=== PATIENT | female | born 1950 | race Caucasian/White ===

== ENCOUNTER 2020-04-30 14:24 | Outpatient (RCR) | payer MEDICARE, SELFPAY | END 2020-07-03 09:48 | disposition home or self-care (01) | LOC: HO.WCC 14:24 | PROVIDERS: PCP Nurse Practitioner Family; Visit Provider Physician Assistant | DX: E11.621 Type 2 diabetes mellitus with foot ulcer (principal); L97.428 Non-pressure chronic ulcer of left heel and midfoot with other specified severity; L97.528 Non-pressure chronic ulcer of other part of left foot with other specified severity; I70.244 Atherosclerosis of native arteries of left leg with ulceration of heel and midfoot; I70.245 Atherosclerosis of native arteries of left leg with ulceration of other part of foot; E11.51 Type 2 diabetes mellitus with diabetic peripheral angiopathy without gangrene; E11.40 Type 2 diabetes mellitus with diabetic neuropathy, unspecified; I10 Essential (primary) hypertension; Z79.84 Long term (current) use of oral hypoglycemic drugs; Z79.2 Long term (current) use of antibiotics; Z87.891 Personal history of nicotine dependence | CPT/HCPCS: 99214; 99215 ==

== ENCOUNTER 2020-05-14 | Outpatient (REF) | payer MEDICARE, SELFPAY ==
--- NOTE | 2020-05-14 13:16 | XR_ITS ---
EXAMINATION: XR CALCANEUS, LEFT CLINICAL INFORMATION: Left heel ulcer COMPARISON: None TECHNIQUE: Lateral and axial views of the left calcaneus were obtained. FINDINGS: There is a moderate size calcaneal and retrocalcaneal enthesophytes. Ankle mortise and subtalar joints are normal. No visible fracture, dislocation or subluxation seen. There is no soft tissue ulceration or gas visualized on this exam XR/XR calcaneus LT min 2V IMPRESSION: Moderate-sized calcaneal heel and retrocalcaneal enthesophytes.
--- NOTE | 2020-05-14 13:18 | US_ITS ---
EXAMINATION: COLOR-FLOW DUPLEX IMAGING OF THE BILATERAL LOWER EXTREMITY ARTERIAL SYSTEM. VELOCITY MEASUREMENTS THROUGHOUT THE FEMORAL ARTERIES WITH ANKLE-BRACHIAL PERIPHERAL ARTERIAL TESTING. CLINICAL INFORMATION: This is a 69-year-old female with hypertension, diabetes, peripheral vascular disease. Interventional Radiologist: Cam Ryan M.D., F.S.I.R., F.A.C.R. RIGHT FEMORAL RUNOFF VELOCITIES: The right common femoral artery measures 131 cm/s and triphasic. The right profunda femoral artery is 123 cm/s and is triphasic. Right proximal superficial femoral artery measures 123 cm/s and triphasic. Mid superficial femoral artery is 91 cm/s and triphasic. Distal right superficial femoral artery measures 177 cm/s and is triphasic. Right popliteal velocity measures 214 cm/s and is monophasic. The posterior tibial artery velocity measures 24 cm/s and was monophasic. The right ankle-brachial index is 0.53. LEFT FEMORAL RUNOFF VELOCITIES: The left common femoral artery measures 202 cm/s and triphasic. The left profunda femoral artery is 160 cm/s and is triphasic. Left proximal superficial femoral artery measures 95 cm/s and monophasic. Mid superficial femoral artery is 602 cm/s and monophasic with severe disease. Distal left superficial femoral artery measures 44 cm/s and is monophasic. Left popliteal velocity measures 27 cm/s and is monophasic and with severe disease. The posterior tibial artery velocity measures 21 cm/s and with severe disease. The left ankle-brachial index is 0.50. US/US arterial duplex LE BI IMPRESSION: 1. Abnormal peripheral arterial testing with abnormal left ankle-brachial index and velocity measurements. 2. There is hemodynamically significant severe atherosclerotic disease in the right popliteal artery and the right posterior tibial artery. 3. There is severe hemodynamically significant disease in the mid left superficial femoral artery extending into the left popliteal artery and left posterior tibial artery.
== END 2020-05-14 00:01 | disposition home or self-care (01) ==
LOC: HO.US
PROVIDERS: PCP Nurse Practitioner Family; Visit Provider Physician Assistant
DX: I73.9 Peripheral vascular disease, unspecified (principal); E11.621 Type 2 diabetes mellitus with foot ulcer; L97.529 Non-pressure chronic ulcer of other part of left foot with unspecified severity
CPT/HCPCS: 73650; 93923; 93925

== ENCOUNTER → 2020-06-04 13:24 | Outpatient (BNVA) | payer MEDICARE, SELFPAY | PROVIDERS: PCP Nurse Practitioner Family; Visit Provider Surgery Vascular Surgery | DX: I73.9 Peripheral vascular disease, unspecified (principal) | CPT/HCPCS: 99202 ==

== ENCOUNTER 2020-06-10 09:48 | Inpatient (IN) | payer MEDICARE, SELFPAY ==
[2020-06-10] VITALS (12 sets, daily range): BP systolic 101–140; BP diastolic 54–79; PULSE 84–108; RESP 16–20; TEMP 36.1–37.2; O2SAT 96–99; BMI 30.5
--- NOTE | ~2020-06-10 | MR_ITS ---
EXAMINATION: LEFT FOOT MRI WITH AND WITHOUT CONTRAST CLINICAL INFORMATION: Left first toe pain. COMPARISON: None. TECHNIQUE: Sagittal axial and coronal sequences through the left toes with and without contrast. The patient received 7.5 mL of intravenous Gadavist contrast. FINDINGS: There is destruction of the distal tuft of the distal phalanx of the great toe. There is abnormal dark on T1 and bright on T2-weighted sequences signal in the distal phalanx of the great toe. Evaluation for enhancement is difficult due to heterogeneous fat saturation however there is probable enhancement. Appearance is suggestive of osteomyelitis. There is overlying soft tissue swelling and skin loss or ulcer. There is abnormal soft tissue signal that is low signal on T1 and high signal on T2-weighted sequences suggestive of a cellulitis. No focal fluid collection/soft tissue abscess is seen. No other evidence of osteomyelitis is seen. Bone alignment is normal. No fracture, dislocation is seen. There are degenerative changes at the 1st MTP joint with joint space narrowing and osteophyte formation. There is a small joint effusion at the 1st MTP joint. MR/MR foot LT wo/w con IMPRESSION: Cellulitis and osteomyelitis of the distal phalanx of the left great toe. There is bone destruction of the distal tuft of the distal phalanx.
[2020-06-10 06:15] LABS: Glucose, Whole Blood 251 mg/dL (60-115)
[2020-06-10 06:49] LABS: Hematocrit 39.6 % (37-47); Hemoglobin 12.7 g/dl (12.0-16.0); Mean Corpuscular HGB Conc 32.1 g/dl (31.0-35.0); Mean Corpuscular Hemoglobin 26.6 pg (27.0-33.0); Mean Corpuscular Volume 82.8 fL (80-98); Mean Platelet Volume 10.1 fL (9.4-12.3); Platelet Count 563 X10*3/uL (160-400); Red Blood Count 4.78 X10*6/uL (4.20-5.50)
[2020-06-10 06:59] LABS: INTERNATIONAL NORM RATIO 1.1 (0.9-1.1); Prothrombin Time 12.9 SEC (10.8-13.0)
[2020-06-10 07:25] LABS: Anion Gap 15 (12-20); Carbon Dioxide 26 mmol/L (22-29); Chloride 100 mmol/L (96-108); Potassium 4.3 mmol/L (3.3-5.1); Sodium 137 mmol/L (135-145)
--- NOTE | 2020-06-10 09:52 | W.PM.OPN ---
Operative Note Operative Note Date of Service: 06/10/20 Narrative: Angiogram report from [facility] Preoperative diagnosis: Peripheral arterial disease of left lower extremity Postoperative diagnosis: Same Procedure: 1. Ultrasound-guided right common femoral access 2. Aortogram with left lower extremity runoff 3. Plasty of left anterior tibial 4. plasty of left peroneal 5. plasty left SFA 6. atherectomy of left SFA Surgeon:Aidan Jeff M.D. Industrial [employer] Brake Coupler:None Anesthesia: Local with moderate conscious sedation for a total of 81 minutes, performed by id Specimens:none Drains:none Estimated blood loss:minimal Indications: 69-year-old female with nonhealing left leg ulcer. On noninvasive testing was noted to have SFA disease with an SUSANNA of 0.5. She now presents for endovascular intervention. Risks benefits complications were discussed in detail with the patient. She understood and consented. Procedure in detail: Patient was brought to the angiography suite prior to which a time-out was called for patient identification and site verification. Bilateral groins were prepped and draped in the standard surgical fashion. Under ultrasound guidance Right common femoral was punctured with micro puncture needle and wire. Subsequently a precision 4 [place] sheath was then placed. Talentwise wire was advanced to the level of the aorta. 4 [place]er Flush catheter was brought up and parked at the level of the renal arteries. Aortogram was then undertaken. Catheter was brought down to the level of the iliac bifurcation. Iliacs were subsequently imaged. Catheter was then brought in up and over to the left side SFA. Runoff study was then undertaken. at this 5000 units of systemic heparin was administered. Once this was accomplished we placed in up and over 6 [place] sheath. We brought down a Glidewire Advantage into the tibial vessels. This was exchanged out for now the cross. And direct image of the tibial vessels was then undertaken. Once this was accomplished we exchanged out for an 014 wire. We 1st cannulated the anterior tibial vessel. We either were able to traverse the lesion. We then placed a taper balloon 2.5-2.0 tapered with a 210 length. The anterior tibial was then plasty. We then turned our attention to the peroneal artery which had a total occlusion in the proximal portion. Were able to 014 wire across this area. We then plasty this area with a 3 x 40 balloon. We then turned our attention to the proximal SFA. In the proximal 3rd there was a near occlusive lesion. We were to perform an atherectomy in this area. We used a Hawk 1 device. Approximately 4 passes of this area was undertaken. Once this was done there was still some residual stenosis and a drug coated 6 x 40 balloon was brought in to place. This was brought into position in under 3 minutes and plasty for 3 minutes. We then turned our attention to a stenotic lesion near [place]. This was plasty with a 6 x 40 balloon. We then brought a drug coated balloon into position in under 3 minutes and then plasty for 3 minutes. Once this was accomplished completion angiogram demonstrated excellent result. Catheter wire sheath was brought to the ipsilateral side. StarClose closure device was then deployed. Interpretation of films: 1. Ultrasound demonstrates appropriate femoral puncture. Image of which was saved. 2. Aortogram demonstrates appropriate caliber aorta. Minimal disease. Appropriate take-off of the renals. 3. Iliac images demonstrate Normal flow all the way down. 4. Left lower extremity study she demonstrated good flow through the common femoral and profunda femorals. There was stenotic disease at the proximal and distal SFA. Good flow through the popliteal. Below knee there was a tenuous anterior tibial and after the proximal all portion of the peroneal it reconstituted and the peroneal was the more dominant runoff vessel. 5. Post treatment images demonstrated excellent flow through the SFA down to anterior tibial and peroneal. Pro Duane was the dominant runoff. Anterior tibial occluded in the mid calf. Conclusion: 1. Successful angiogram 2. successful plasty left anterior tibial peroneal and SFA. 3. Successful atherectomy of left SFA. 4. Due to the use of drug coated balloon patient will require Plavix for 6 months. This note is constructed using voice recognition software. While every effort has been made to ensure accuracy, neon light installer errors may have been included. Thank you for allowing me to participate in the care of your patient. Yours sincerely, Aidan Jeff MD, FACS, R.P.V.I.
[2020-06-10] MEDS: Lidocaine HCl 1 % 20 ML VIAL 10 ML SUBCUT (10:05)
[2020-06-10] MEDS: iohexoL 300 MG/ML 100 ML INFUS..BTL 200 ML IV (10:06)
--- NOTE | 2020-06-10 10:11 | HO.VASCH&P ---
History of Present Illness History of Present Illness Date of Service: 06/10/20 Chief complaint: peripheral vascular disease Narrative: Roseanna Gallego is a 69 year old Diabetic female With a history of smoking has a nonhealing left leg ulcer. [facility] She was subsequently brought in for elective left leg angiogram. Upon workup this morning she was noted to have a white count of 25. there was concern of an acute infection of the left lower extremity. She was subsequently admitted after procedure. Review of Systems Review of Systems: Yes all other systems are reviewed and are negative Constitutional: Constitutional: Reports no additional constitutional complaints ENT: Reports Normal hearing present Cardiovascular: Cardiovascular: Denies chest pain, Denies chest pain at rest, Denies chest pain with activity and Denies pedal edema Respiratory: Respiratory: Denies cough Gastrointestinal: Gastrointestinal: Denies abdominal pain Musculoskeletal: Musculoskeletal: Reports abnormal gait, Reports muscle cramps and Reports radiating pain into limb ( Left foot) Integumentary/Breasts: Skin/Breast: Denies skin ulcer and Denies wounds Neurologic: Reports Normal hearing present and Reports abnormal gait Psychiatric: Psychiatric: Reports no additional psychiatric complaints PMFSH Past Medical History Medical History Hx of cataract Social History Social History Smoking Status: Former smoker Tobacco Type: Cigarette Advance Directives: No Advance Directives Information Provided: Yes Meds Allergies Allergy/AdvReac Type Severity Reaction Status Date / Time Milk Containing Products Allergy Mild DIARRHEA Verified 06/04/20 13:25 [Milk Products] Active Medications: Current Medications Generic Name Dose Route Start Last Admin Trade Name Freq PRN Reason Stop Dose Admin Acetaminophen 650 mg 06/10/20 09:47 Acetaminophen 325 Mg Tablet PO Q6H PRN Pain, Mild (Pain Scale 1-3) Heparin Sodium (Porcine) 5,000 unit 06/10/20 10:00 Heparin Sodium,Porcine 5,000 Unit/Ml Vial SUBCUT Q8H MARKY Sodium Chloride 1,000 mls @ 100 mls/hr 06/10/20 07:45 Ns IVCONT .Q10H MARKY Sodium Chloride 1,000 mls @ 100 mls/hr 06/10/20 09:45 Ns IVCONT 06/10/20 13:45 .Q10H MARKY Iohexol 200 ml 06/10/20 10:05 06/10/20 10:06 Iohexol 300 Mg/Ml 100 Ml Infus..Btl IV 06/10/20 10:06 200 ml ONCE ONE Administration Lidocaine HCl 10 ml 06/10/20 10:04 06/10/20 10:05 Lidocaine Hcl 1 % 20 Ml Vial SUBCUT 06/10/20 10:05 10 ml ONCE ONE Administration Morphine Sulfate 2 mg 06/10/20 09:47 Morphine Sulfate 2 Mg/Ml Cartridge IVPUSH Q4H PRN Pain, Severe (Pain Scale 7-10) Oxycodone HCl 5 mg 06/10/20 09:47 Oxycodone Hcl Immed Release 5 Mg Tablet PO Q4H PRN Pain, Moderate (Pain Scale 4-6 Sodium Chloride 3 ml 06/10/20 16:00 0.9 % Sodium Chloride Flush 3 Ml Syringe IVFLUSH QSHIFT [facility] Physical Exam Vital Signs: Vital Signs: Last Vital Signs Temp 97.0 F 06/10/20 09:45 Pulse 108 H 06/10/20 10:00 Resp 18 06/10/20 10:00 BP 119/77 06/10/20 10:00 Pulse Ox 97 06/10/20 10:00 Body Mass Index 30.5 Const: General: cooperative, healthy appearing and comfortable Orientation/consciousness: oriented to person, oriented to place and oriented to time HENMT: Head: Yes normal to inspection Neck: Neck: Yes normal visual inspection Carotids: no bruits Chest: Chest palpation & inspection: normal inspection of the chest Resp: Effort & Inspection: normal respiratory effort and able to speak in complete sentences Auscultation: clear to auscultation bilaterally, no crackles, no rales, no rhonchi and no wheezes Cardio: Rate: regular rate Rhythm: regular rhythm Heart sounds: S1 normal heart sound present and S2 normal heart sound present Bruits: no carotid bruits Peripheral pulses: dorsalis pedis present ( bilateral DP signals) GI: Inspection: Yes normal to inspection Skin: Wounds: wounds noted ( left calcaneus in great toe) Hair: normal Neuro: General: oriented to person, oriented to place and oriented to time Cranial nerves: Yes CN's II-XII intact bilaterally and Yes Normal hearing present Cognition (Neuro): normal cognition Motor exam (neuro): 5/5 motor strength present throughout Extrem: Other: venous exam: No significant superficial varicosities or spider telangiectasias, minimal edema General: No clubbing, No cyanosis and No edema Psych: Appearance: grossly normal Mental Status: mental status grossly normal Speech and movement: Normal speech and movement present Results Results Labs: Short CBC 06/10/20 Range/Units 06:37 WBC 25.0 H (4.8-10.8) X10*3/uL Hgb 12.7 (12.0-16.0) g/dl Hct 39.6 (37-47) % Plt Count 563 H (160-400) X10*3/uL BMP 06/10/20 06:37 Sodium 137 Potassium 4.3 Chloride 100 Carbon Dioxide 26 Assessment and Plan (1) Diabetic foot ulcer: Problem details: in short patient has a left leg diabetic foot ulcer. It appears to be acutely infected. Will plan for admission and subsequent antibiotics. will involve hospitalist Service for assistance in her care. Status: Acute (2) PAD (peripheral artery disease): Problem details: Patient has undergone endovascular intervention. It was successful. Will need admission and treatment of acute infection. Thank you for allowing us to assist in her care. Status: Acute Procedures Date of Service Date of Service: 06/10/20
[2020-06-10] MEDS: Heparin Sodium,Porcine 5,000 UNIT/ML VIAL 5000 UNIT SUBCUT ×2 (11:42→18:13)
[2020-06-10] MEDS: Clopidogrel Bisulfate 300 MG TABLET PO (11:42)
[2020-06-10 11:46] LABS: Creatinine Clr Calc Pharmacy 41.9; Estimated Glomerular Filt Rate 45
[2020-06-10] MEDS: Aspirin 325 MG TABLET PO (11:52)
[2020-06-10] MEDS: Piperacillin Sodium/Tazobactam 3.375 GM in 0.9 % Sodium Chloride 50 ML IV ×2 (11:53→18:13)
[2020-06-10 12:37] LABS: Glucose, Whole Blood 138 mg/dL (60-115)
--- NOTE | 2020-06-10 13:12 | P.CONIM_ITS ---
History of Present Illness Data of Consult Service Date: 06/10/20 Requesting physician: Aidan Jeff Primary Care Provider: Sally Gonzalez NP HPI Reason for consult: left first toe infection 69-year-old female with left 1st toe pain and ulcer. [facility], but has only been once so far, ulcer started about 3-4 weeks ago, no fever, chills or inciting injury. Patient was referred to vascular surgery who performed elective angiogram with plasty to left anterior tibial, left peroneal, left SFA and atherectomy of left SFA. patient's labs were significant for leukocystosis of 25, therefore, she was admitted for IV antibiotics. Review of Systems Review of Systems: Constitutional: Denies fever, denies Chills Eyes: denies blurry vision ENT: denies sore throat CVS: denies chest pain Respiratory: Denies dyspnea GI: no abdominal pain : denies dysuria MSK: denies neck pain Skin: denies rash Neuro: denies specific motor weakness Psych: denies suicidal ideation Endocrine: denies heat/cold intoleratnce Hematologic: denies easy bleeding Allergy: denies hives [facility] Medical History Diabetes mellitus, type 2 HTN (hypertension) Hx of cataract Pertinent family history: no known cancers Family history: reviewed and not pertinent Surgical History H/O: hysterectomy History of carpal tunnel release Social History Smoking Status: Former smoker Tobacco Type: Cigarette Advance Directives: No Advance Directives Information Provided: Yes Meds Allergies Allergy/AdvReac Type Severity Reaction Status Date / Time Milk Containing Products Allergy Mild DIARRHEA Verified 06/04/20 13:25 [Milk Products] Active Medications: Current Medications Generic Name Dose Route Start Last Admin Trade Name Freq PRN Reason Stop Dose Admin Acetaminophen 650 mg 06/10/20 09:47 Acetaminophen 325 Mg Tablet PO Q6H PRN Pain, Mild (Pain Scale 1-3) Aspirin 81 mg 06/11/20 09:00 Aspirin 81 Mg Tab.Chew PO DAILY MARKY Atorvastatin Calcium 40 mg 06/10/20 21:00 Atorvastatin Calcium 40 Mg Tablet PO BEDTIME MARKY Clopidogrel Bisulfate 75 mg 06/11/20 09:00 Clopidogrel Bisulfate 75 Mg Tablet PO DAILY [facility] Gabapentin 100 mg 06/10/20 21:00 Gabapentin 100 Mg Capsule PO BID [facility] Heparin Sodium (Porcine) 5,000 unit 06/10/20 10:00 06/10/20 11:42 Heparin Sodium,Porcine 5,000 Unit/Ml Vial SUBCUT 5,000 unit Q8H [facility] Administration Sodium Chloride 1,000 mls @ 100 mls/hr 06/10/20 07:45 06/10/20 13:11 Ns IVCONT Not Given .Q10H [facility] Sodium Chloride 1,000 mls @ 100 mls/hr 06/10/20 09:45 06/10/20 13:10 Ns IVCONT 06/10/20 13:45 Not Given .Q10H [facility] Vancomycin HCl 750 mg/ 275 mls @ 183.333 mls/hr 06/10/20 13:00 Vancomycin HCl 500 mg/ Sodium IV Chloride Q24H [facility] Piperacillin Sod/Tazobactam 50 mls @ 100 mls/hr 06/10/20 18:00 Sod 3.375 gm/ Sodium Chloride IV Q6H [facility] Insulin Human Lispro 0 unit 06/10/20 11:30 06/10/20 13:10 Insulin Lispro 100 Unit/Ml 3 Ml Vial SUBCUT Not Given QIDACHS [facility] Protocol Lisinopril 40 mg 06/11/20 09:00 Lisinopril 40 Mg Tablet PO DAILY [facility] Protocol Morphine Sulfate 2 mg 06/10/20 09:47 Morphine Sulfate 2 Mg/Ml Cartridge IVPUSH Q4H PRN Pain, Severe (Pain Scale 7-10) Omeprazole 20 mg 06/11/20 06:30 Omeprazole 20 Mg Capsule. PO DAILY@0630 [facility] Oxycodone HCl 5 mg 06/10/20 09:47 Oxycodone Hcl Immed Release 5 Mg Tablet PO Q4H PRN Pain, Moderate (Pain Scale 4-6 Pharmacy Consult 1 each 06/10/20 10:36 Consult Rx Perform Med Rec MISCELLANE ONCE PRN Consult order Pharmacy Consult 1 each 06/10/20 10:40 Consult Rx Vancomycin Dosing MISCELLANE DAILY PRN Consult order Pioglitazone HCl 15 mg 06/11/20 09:00 Pioglitazone Hcl 15 Mg Tablet PO DAILY [facility] Sodium Chloride 3 ml 06/10/20 16:00 0.9 % Sodium Chloride Flush 3 Ml Syringe IVFLUSH QSHIFT [facility] Home Medications Medication Instructions Recorded Confirmed Last Taken Type atorvastatin 40 mg PO BEDTIME 06/10/20 06/10/20 Unknown History empagliflozin [Jardiance] 10 mg PO DAILY 06/10/20 06/10/20 Unknown History gabapentin 100 mg PO BID 06/10/20 06/10/20 Unknown History glipizide 10 mg PO DAILY 06/10/20 06/10/20 Unknown History lisinopril 40 mg PO DAILY 06/10/20 06/10/20 Unknown History pantoprazole 40 mg PO DAILY@0630 06/10/20 06/10/20 Unknown History pioglitazone 15 mg PO DAILY 06/10/20 06/10/20 Unknown History Physical Exam Vital Signs and Narrative: Vital Signs: Last Vital Signs Temp 97.5 F 06/10/20 12:30 Pulse 104 H 06/10/20 12:30 Resp 18 06/10/20 12:30 BP 126/65 06/10/20 12:30 Pulse Ox 99 06/10/20 12:30 Body Mass Index 30.5 General: no acute distress HEENT: atraumatic Neck: normal to visual inspection CVS: S1, S2, RRR Resp: CTA bilateral Chest: non tender GI: soft, non tender, non distended : no CVA tenderness Skin: see picture Extremities: no edema Neuro: Oriented X3, grossly intact Psych: cooperative, Results Labs CBC and Chem 7: 06/10/20 06:37 06/10/20 06:37 Labs: Laboratory Results - last 24 hr 06/10/20 06/10/20 06/10/20 06:11 06:37 06:37 MCV 82.8 MCH 26.6 L MCHC 32.1 RDW 13.0 Plt Count 563 H MPV 10.1 Absolute Nucleated RBC 0.000 Nucleated RBC % (auto) 0.0 PT 12.9 INR 1.1 Anion Gap Estim Creat Clear Calc Estimated GFR POC Glucose 251 H 06/10/20 06/10/20 06:37 12:31 MCV MCH MCHC RDW Plt Count MPV Absolute Nucleated RBC Nucleated RBC % (auto) PT INR Anion Gap 15 Estim Creat Clear Calc 41.9 Estimated GFR 45 POC Glucose 138 H Assessment and Plan (1) HTN (hypertension): Status: Acute (2) Diabetes mellitus, type 2: Status: Acute (3) PAD (peripheral artery disease): Problem details: Patient has undergone endovascular intervention. It was successful. Will need admission and treatment of acute infection. Thank you for allowing us to assist in her care. Status: Acute (4) Diabetic foot ulcer: Problem details: in short patient has a left leg diabetic foot ulcer. It appears to be acutely infected. Will plan for admission and subsequent antibiotics. will involve hospitalist Service for assistance in her care. Status: Acute 69F status post angiogram and angioplasty of left lower extremity with diabetic foot ulcer of left 1st toe. Admitted for leukocytosis and concern for deep infection. Left 1st toe likely osteomyelitis Check MRI Vanco and Zosyn Check blood cultures Id eval Peripheral vascular disease Status post angioplasty Management per vascular surgery Hypertension Lisinopril Diabetes Insulin
[2020-06-10] MEDS: 0.9 % Sodium Chloride Flush 3 ML SYRINGE IVFLUSH (16:26)
[2020-06-10 16:28] LABS: Glucose, Whole Blood 150 mg/dL (60-115)
[2020-06-10] MEDS: traMADoL HCL 50 MG TABLET PO (18:13)
[2020-06-10 20:21] LABS: Glucose, Whole Blood 156 mg/dL (60-115)
--- NOTE | 2020-06-10 21:04 | W.PM.IDCN ---
History of Present Illness Data of Consult Service Date: 06/10/20 Requesting physician: Timothy Gates Primary Care Provider: Sally Gonzalez NP HPI Reason for consult: left foot ulcer She presents with four weeks left foot ulcer great toe with darkness Also there was in heel ulcer ,now improving. Review of Systems Review of Systems: Yes all other systems are reviewed and are negative PMFSH Past Medical History Medical History Diabetes mellitus, type 2 HTN (hypertension) Hx of cataract Family History Family history: reviewed and not pertinent Surgical History Surgical History H/O: hysterectomy History of carpal tunnel release Social History Social History Household Members: None Housing: House Do you presently have visiting nurse or other home services: No Smoking Status: Former smoker Tobacco Type: Cigarette Smoked in Last 30 Days: No Smoking Quit Date: 2005 Use of substances other than those prescribed or required for medical reasons: No Have you been hit, kicked, punched, or otherwise hurt by someone within the past year? If so, by whom?: No Do you feel safe in your current relationship?: No Current Relationship Is there a partner from a previous relationship who is making you feel unsafe now?: No Are you made to feel afraid or neglected: No Advance Directives: No Advance Directives Information Provided: Yes Do you have thoughts of harming others: None Do you have a plan to hurt others: No Plan Recently lost weight without trying: No Meds Allergies Allergy/AdvReac Type Severity Reaction Status Date / Time Milk Containing Products Allergy Mild DIARRHEA Verified 06/04/20 13:25 [Milk Products] Active Medications: Current Medications Generic Name Dose Route Start Last Admin Trade Name Freq PRN Reason Stop Dose Admin Acetaminophen 650 mg 06/10/20 09:47 Acetaminophen 325 Mg Tablet PO Q6H PRN Pain, Mild (Pain Scale 1-3) Aspirin 81 mg 06/11/20 09:00 Aspirin 81 Mg Tab.Chew PO DAILY [facility] Atorvastatin Calcium 40 mg 06/10/20 21:00 Atorvastatin Calcium 40 Mg Tablet PO BEDTIME [facility] Clopidogrel Bisulfate 75 mg 06/11/20 09:00 Clopidogrel Bisulfate 75 Mg Tablet PO DAILY [facility] Gabapentin 100 mg 06/10/20 21:00 Gabapentin 100 Mg Capsule PO BID [facility] Heparin Sodium (Porcine) 5,000 unit 06/10/20 10:00 06/10/20 18:13 Heparin Sodium,Porcine 5,000 Unit/Ml Vial SUBCUT 5,000 unit Q8H [facility] Administration Sodium Chloride 1,000 mls @ 100 mls/hr 06/10/20 07:45 06/10/20 13:11 Ns IVCONT Not Given .Q10H [facility] Vancomycin HCl 750 mg/ 275 mls @ 183.333 mls/hr 06/10/20 13:00 06/10/20 16:24 Vancomycin HCl 500 mg/ Sodium IV Infused Chloride Q24H [facility] Infusion Piperacillin Sod/Tazobactam 50 mls @ 100 mls/hr 06/10/20 18:00 06/10/20 19:00 Sod 3.375 gm/ Sodium Chloride IV Infused Q6H [facility] Infusion Insulin Human Lispro 0 unit 06/10/20 11:30 06/10/20 16:32 Insulin Lispro 100 Unit/Ml 3 Ml Vial SUBCUT Not Given QIDACHS [facility] Protocol Lisinopril 40 mg 06/11/20 09:00 Lisinopril 40 Mg Tablet PO DAILY [facility] Protocol Morphine Sulfate 2 mg 06/10/20 09:47 Morphine Sulfate 2 Mg/Ml Cartridge IVPUSH Q4H PRN Pain, Severe (Pain Scale 7-10) Omeprazole 20 mg 06/11/20 06:30 Omeprazole 20 Mg Capsule.Dr PO DAILY@0630 [facility] Oxycodone HCl 5 mg 06/10/20 09:47 Oxycodone Hcl Immed Release 5 Mg Tablet PO Q4H PRN Pain, Moderate (Pain Scale 4-6 Pharmacy Consult 1 each 06/10/20 10:36 Consult Rx Perform Med Rec MISCELLANE ONCE PRN Consult order Pharmacy Consult 1 each 06/10/20 10:40 Consult Rx Vancomycin Dosing MISCELLANE DAILY PRN Consult order Pioglitazone HCl 15 mg 06/11/20 09:00 Pioglitazone Hcl 15 Mg Tablet PO DAILY [facility] Sodium Chloride 3 ml 06/10/20 16:00 06/10/20 16:26 0.9 % Sodium Chloride Flush 3 Ml Syringe IVFLUSH 3 ml QSHIFT [facility] Administration Tramadol HCl 50 mg 06/10/20 17:53 06/10/20 18:13 Tramadol Hcl 50 Mg Tablet PO 50 mg Q4H PRN Administration Pain, Severe (Pain Scale 7-10) Home Medications Medication Instructions Recorded Confirmed Last Taken Type atorvastatin 40 mg PO BEDTIME 06/10/20 06/10/20 Unknown History empagliflozin [Jardiance] 10 mg PO DAILY 06/10/20 06/10/20 Unknown History gabapentin 100 mg PO BID 06/10/20 06/10/20 Unknown History glipizide 10 mg PO DAILY 06/10/20 06/10/20 Unknown History lisinopril 40 mg PO DAILY 06/10/20 06/10/20 Unknown History pantoprazole 40 mg PO DAILY@0630 06/10/20 06/10/20 Unknown History pioglitazone 15 mg PO DAILY 06/10/20 06/10/20 Unknown History Physical Exam Vital Signs: Vital Signs: Last Vital Signs Temp 99 F 06/10/20 19:26 Pulse 94 06/10/20 19:26 Resp 17 06/10/20 19:26 BP 140/74 H 06/10/20 19:26 Pulse Ox 98 06/10/20 19:26 Body Mass Index 30.5 Const: General: cooperative HENMT: Head: Yes normal to inspection Mouth: Normal oral and palatal mucosa present Eyes: General: appearance normal, both eyes and all related structures Resp: Effort & Inspection: normal respiratory effort Cardio: Rate: regular rate Rhythm: regular rhythm GI: Palpation (GI): Soft to palpation and nontender Extrem: Other: ulcer left foot and heel Results Labs CBC & Chem 7: 06/10/20 06:37 06/10/20 06:37 Labs: Short CBC 06/10/20 Range/Units 06:37 WBC 25.0 H (4.8-10.8) X10*3/uL Hgb 12.7 (12.0-16.0) g/dl Hct 39.6 (37-47) % Plt Count 563 H (160-400) X10*3/uL BMP 06/10/20 06:37 Sodium 137 Potassium 4.3 Chloride 100 Carbon Dioxide 26 Creatinine 1.19 Assessment and Plan (1) Diabetic foot ulcer: Problem details: in short patient has a left leg diabetic foot ulcer. There is concern over osteomyelitis gram negative ,gram positive Status: Acute Would continue Vancomycin and Zosyn If infection found on MRI likely 6 weeks IV Soriano had angiogram per Dr Jeff
[2020-06-10] MEDS: Insulin Lispro 100 UNIT/ML 3 ML VIAL SUBCUT (21:30)
[2020-06-10] MEDS: Atorvastatin Calcium 40 MG TABLET PO (21:30)
[2020-06-10] MEDS: Gabapentin 100 MG CAPSULE PO (21:30)
[2020-06-10] MEDS: 0.9 % Sodium Chloride 1,000 ML 100 ML IVCONT (22:53)
[2020-06-11] VITALS (7 sets, daily range): BP systolic 104–128; BP diastolic 50–77; PULSE 78–101; RESP 14–18; TEMP 36–37.1; O2SAT 97–98; BMI 30.5
[2020-06-11] MEDS: 0.9 % Sodium Chloride Flush 3 ML SYRINGE IVFLUSH ×3 (00:23→15:33)
[2020-06-11] MEDS: Piperacillin Sodium/Tazobactam 3.375 GM in 0.9 % Sodium Chloride 50 ML IV ×5 (00:32→23:34)
[2020-06-11 05:01] LABS: Basophils Absolute Auto 0.1 X10*3/uL (0.0-0.2); Basophils Percent Auto 0.3 % (0-2); Eosinophils Absolute Auto 0.2 X10*3/uL (0.0-0.4); Hematocrit 34.3 % (37-47); Hemoglobin 10.8 g/dl (12.0-16.0); Imm Gran Abs Auto 0.08 X10*3/uL (0.00-0.03); Imm Gran Pct Auto 0.5 % (0.0-0.4); Lymphocytes Percent Auto 63.2 % (20-40); MANUAL DIFF FLAG SCAN; Mean Corpuscular HGB Conc 31.5 g/dl (31.0-35.0); Mean Corpuscular Hemoglobin 26.2 pg (27.0-33.0); Mean Corpuscular Volume 83.1 fL (80-98); Mean Platelet Volume 10.3 fL (9.4-12.3); Monocytes Absolute Auto 0.6 X10*3/uL (0.1-1.2); Monocytes Percent Auto 3.6 % (2-11); Neutrophils Absolute Auto 5.1 X10*3/uL (2.0-8.3); Neutrophils Percent Auto 31.4 % (45-73); Platelet Count 389 X10*3/uL (160-400); Red Blood Count 4.13 X10*6/uL (4.20-5.50); Red Cell Distribution Width 13.1 % (11.0-16.0); SCAN SMEAR FLAG 1; White Blood Count 16.2 X10*3/uL (4.8-10.8)
[2020-06-11 05:23] LABS: Anion Gap 13 (12-20); Blood Urea Nitrogen 23 mg/dL (9-16); Calcium 9.3 mg/dL (8.4-10.2); Carbon Dioxide 26 mmol/L (22-29); Chloride 104 mmol/L (96-108); Creatinine Clr Calc Pharmacy 61.5; Estimated Glomerular Filt Rate > 60; Glucose Fasting 140 mg/dL (60-99); Potassium 4.8 mmol/L (3.3-5.1); Sodium 138 mmol/L (135-145)
[2020-06-11 05:26] LABS: Lymphocytes Absolute Auto 10.2 X10*3/uL (1.2-4.9); SLIDE REVIEW VERIFIED
[2020-06-11 06:25] LABS: Basophils Absolute Auto 0.1 X10*3/uL (0.0-0.2); Basophils Percent Auto 0.4 % (0-2); Eosinophils Absolute Auto 0.2 X10*3/uL (0.0-0.4); Eosinophils Percent Auto 0.9 % (0-4); Hematocrit 34.6 % (37-47); Hemoglobin 11.1 g/dl (12.0-16.0); Imm Gran Abs Auto 0.07 X10*3/uL (0.00-0.03); Imm Gran Pct Auto 0.4 % (0.0-0.4); Lymphocytes Absolute Auto 9.9 X10*3/uL (1.2-4.9); Lymphocytes Percent Auto 62.2 % (20-40); MANUAL DIFF FLAG SCAN; Mean Corpuscular HGB Conc 32.1 g/dl (31.0-35.0); Mean Corpuscular Hemoglobin 26.4 pg (27.0-33.0); Mean Corpuscular Volume 82.2 fL (80-98); Mean Platelet Volume 10.1 fL (9.4-12.3); Monocytes Absolute Auto 0.6 X10*3/uL (0.1-1.2); Monocytes Percent Auto 3.9 % (2-11); Neutrophils Absolute Auto 5.1 X10*3/uL (2.0-8.3); Neutrophils Percent Auto 32.2 % (45-73); Platelet Count 397 X10*3/uL (160-400); Red Blood Count 4.21 X10*6/uL (4.20-5.50); Red Cell Distribution Width 13.2 % (11.0-16.0); SCAN SMEAR FLAG 1
[2020-06-11 06:41] LABS: Anion Gap 12 (12-20); Blood Urea Nitrogen 21 mg/dL (9-16); Calcium 9.1 mg/dL (8.4-10.2); Carbon Dioxide 27 mmol/L (22-29); Chloride 105 mmol/L (96-108); Creatinine Clr Calc Pharmacy 63.9; Estimated Glomerular Filt Rate > 60; Glucose Random 162 mg/dL (60-115); Potassium 4.5 mmol/L (3.3-5.1); Sodium 139 mmol/L (135-145)
[2020-06-11] MEDS: Omeprazole 20 MG CAPSULE.DR PO (06:41)
[2020-06-11 07:10] LABS: Glucose, Whole Blood 149 mg/dL (60-115)
[2020-06-11] MEDS: Aspirin 81 MG TAB.CHEW PO (09:00)
[2020-06-11] MEDS: Heparin Sodium,Porcine 5,000 UNIT/ML VIAL 5000 UNIT SUBCUT ×2 (09:00→18:25)
[2020-06-11] MEDS: Gabapentin 100 MG CAPSULE PO ×2 (09:00→22:30)
[2020-06-11] MEDS: Clopidogrel Bisulfate 75 MG TABLET PO (09:00)
[2020-06-11] MEDS: 0.9 % Sodium Chloride 1,000 ML 100 ML IVCONT (09:17)
--- NOTE | 2020-06-11 09:54 | P.PNVS_ITS ---
Subjective Subjective Date of Service: 06/11/20 Patient reports: no new complaints and feels better Interval history: Patient seen and examined. No events. Status post angiogram yesterday. She states that her leg feels better. She has received IV antibiotics overnight. In good spirits today. Physical Exam Vital Signs: Vital Signs: Last Vital Signs Temp 98.7 F 06/11/20 07:30 Pulse 78 06/11/20 09:00 Resp 18 06/11/20 07:30 BP 109/58 L 06/11/20 09:00 Pulse Ox 98 06/11/20 07:30 Body Mass Index 30.5 Const: General: cooperative, healthy appearing and no acute distress Orientation/consciousness: oriented to person, oriented to place and oriented to time HENMT: Head: Yes normal to inspection Neck: Carotids: no bruits Chest: Chest palpation & inspection: normal inspection of the chest Resp: Effort & Inspection: normal respiratory effort and able to speak in complete sentences Auscultation: clear to auscultation bilaterally Cardio: Rate: regular rate Heart sounds: S1 normal heart sound present and S2 normal heart sound present Peripheral pulses: dorsalis pedis present (Left side DP signal) GI: Inspection: Yes normal to inspection Skin: General skin exam: no rashes or lesions noted Wounds: wounds noted (Left great toe gangrene) Neuro: General: oriented to person, oriented to place, oriented to time and CN's II-XI intact bilaterally Extrem: General: Yes normal to inspection, Yes full ROM and Yes no clubbing, cyanosis or edema Psych: Appearance: grossly normal and well kempt Speech and movement: Normal speech and movement present Affect: normal affect Progress Note: A&P Assessment and plan (1) Diabetic foot ulcer: Problem details: in short patient has a left leg diabetic foot ulcer. There is concern over osteomyelitis gram negative ,gram positive Status: Acute (2) PAD (peripheral artery disease): Problem details: Patient has undergone endovascular intervention. It was successful. Will need admission and treatment of acute infection. Thank you for allowing us to assist in her care. Status: Acute Assessment and Plan: Await results of MRI. I did discuss with the patient that she will most likely require great toe amputation. She was initially shocked but then was agreeable after discussion. Will allow antibiotics to control infection and await MRI results. Pending that will schedule her soon thereafter. Thank you for allowing us to assist in her care. Fall Risk Details Current Medications: Current Medications Generic Name Dose Route Start Last Admin Trade Name Freranjan PRN Reason Stop Dose Admin Acetaminophen 650 mg 06/10/20 09:47 Acetaminophen 325 Mg Tablet PO Q6H PRN Pain, Mild (Pain Scale 1-3) Aspirin 81 mg 06/11/20 09:00 06/11/20 09:00 Aspirin 81 Mg Tab.Chew PO 81 mg DAILY [facility] Administration Atorvastatin Calcium 40 mg 06/10/20 21:00 06/10/20 21:30 Atorvastatin Calcium 40 Mg Tablet PO 40 mg BEDTIME [facility] Administration Clopidogrel Bisulfate 75 mg 06/11/20 09:00 06/11/20 09:00 Clopidogrel Bisulfate 75 Mg Tablet PO 75 mg DAILY [facility] Administration Gabapentin 100 mg 06/10/20 21:00 06/11/20 09:00 Gabapentin 100 Mg Capsule PO 100 mg BID [facility] Administration Heparin Sodium (Porcine) 5,000 unit 06/10/20 10:00 06/11/20 09:00 Heparin Sodium,Porcine 5,000 Unit/Ml Vial SUBCUT 5,000 unit Q8H [facility] Administration Vancomycin HCl 750 mg/ 275 mls @ 183.333 mls/hr 06/10/20 13:00 06/10/20 16:24 Vancomycin HCl 500 mg/ Sodium IV Infused Chloride Q24H [facility] Infusion Piperacillin Sod/Tazobactam 50 mls @ 100 mls/hr 06/10/20 18:00 06/11/20 07:28 Sod 3.375 gm/ Sodium Chloride IV Infused Q6H [facility] Infusion Insulin Human Lispro 0 unit 06/10/20 11:30 06/11/20 07:28 Insulin Lispro 100 Unit/Ml 3 Ml Vial SUBCUT Not Given QIDACHS [facility] Protocol Lisinopril 40 mg 06/11/20 09:00 06/11/20 09:00 Lisinopril 40 Mg Tablet PO 40 mg DAILY [facility] Administration Protocol Morphine Sulfate 2 mg 06/10/20 09:47 Morphine Sulfate 2 Mg/Ml Cartridge IVPUSH Q4H PRN Pain, Severe (Pain Scale 7-10) Omeprazole 20 mg 06/11/20 06:30 06/11/20 06:41 Omeprazole 20 Mg Capsule. PO 20 mg DAILY@0630 [facility] Administration Oxycodone HCl 5 mg 06/10/20 09:47 Oxycodone Hcl Immed Release 5 Mg Tablet PO Q4H PRN Pain, Moderate (Pain Scale 4-6 Pharmacy Consult 1 each 06/10/20 10:36 Consult Rx Perform Med Rec MISCELLANE ONCE PRN Consult order Pharmacy Consult 1 each 06/10/20 10:40 Consult Rx Vancomycin Dosing MISCELLANE DAILY PRN Consult order Pioglitazone HCl 15 mg 06/11/20 09:00 06/11/20 09:00 Pioglitazone Hcl 15 Mg Tablet PO 15 mg DAILY [facility] Administration Sodium Chloride 3 ml 06/10/20 16:00 06/11/20 09:00 0.9 % Sodium Chloride Flush 3 Ml Syringe IVFLUSH 3 ml QSHIFT [facility] Administration Tramadol HCl 50 mg 06/10/20 17:53 06/10/20 18:13 Tramadol Hcl 50 Mg Tablet PO 50 mg Q4H PRN Administration Pain, Severe (Pain Scale 7-10) Time Spent With Patient Time: Total time spent is greater than 50% in coordination of care (as documented) at patient's floor/unit and/or counseling patient: Time with patient: 15 - 24 minutes Procedures Date of Service Date of Service: 06/11/20
--- NOTE | 2020-06-11 10:36 | P.PNIM_ITS ---
Subjective Subjective Date of Service: 06/11/20 Interval History: no complaints Cardiovascular Cardiovascular: Reports no additional cardiovascular complaints Gastrointestinal Gastrointestinal: Reports no additional gastrointestinal complaints Physical Exam Vital Signs: Vital Signs: Last Vital Signs Temp 98.7 F 06/11/20 07:30 Pulse 78 06/11/20 09:00 Resp 18 06/11/20 07:30 BP 109/58 L 06/11/20 09:00 Pulse Ox 98 06/11/20 07:30 Body Mass Index 30.5 General: AO X 3, no acute distress Resp: CTA bilateral CVS: S1,S2,RRR GI: soft, non tender, non distended Neuro: motor grossly intact Psych: appropriate affect ext: left 1st toe OM Objective Data Current Medications Generic Name Dose Route Start Last Admin Trade Name Freq PRN Reason Stop Dose Admin Acetaminophen 650 mg 06/10/20 09:47 Acetaminophen 325 Mg Tablet PO Q6H PRN Pain, Mild (Pain Scale 1-3) Aspirin 81 mg 06/11/20 09:00 06/11/20 09:00 Aspirin 81 Mg Tab.Chew PO 81 mg DAILY [facility] Administration Atorvastatin Calcium 40 mg 06/10/20 21:00 06/10/20 21:30 Atorvastatin Calcium 40 Mg Tablet PO 40 mg BEDTIME [facility] Administration Clopidogrel Bisulfate 75 mg 06/11/20 09:00 06/11/20 09:00 Clopidogrel Bisulfate 75 Mg Tablet PO 75 mg DAILY [facility] Administration Gabapentin 100 mg 06/10/20 21:00 06/11/20 09:00 Gabapentin 100 Mg Capsule PO 100 mg BID [facility] Administration Heparin Sodium (Porcine) 5,000 unit 06/10/20 10:00 06/11/20 09:00 Heparin Sodium,Porcine 5,000 Unit/Ml Vial SUBCUT 5,000 unit Q8H [facility] Administration Vancomycin HCl 750 mg/ 275 mls @ 183.333 mls/hr 06/10/20 13:00 06/10/20 16:24 Vancomycin HCl 500 mg/ Sodium IV Infused Chloride Q24H [facility] Infusion Piperacillin Sod/Tazobactam 50 mls @ 100 mls/hr 06/10/20 18:00 06/11/20 07:28 Sod 3.375 gm/ Sodium Chloride IV Infused Q6H [facility] Infusion Insulin Human Lispro 0 unit 06/10/20 11:30 06/11/20 07:28 Insulin Lispro 100 Unit/Ml 3 Ml Vial SUBCUT Not Given QIDACHS [facility] Protocol Lisinopril 40 mg 06/11/20 09:00 06/11/20 09:00 Lisinopril 40 Mg Tablet PO 40 mg DAILY [facility] Administration Protocol Morphine Sulfate 2 mg 06/10/20 09:47 Morphine Sulfate 2 Mg/Ml Cartridge IVPUSH Q4H PRN Pain, Severe (Pain Scale 7-10) Omeprazole 20 mg 06/11/20 06:30 06/11/20 06:41 Omeprazole 20 Mg Capsule. PO 20 mg DAILY@0630 [facility] Administration Oxycodone HCl 5 mg 06/10/20 09:47 Oxycodone Hcl Immed Release 5 Mg Tablet PO Q4H PRN Pain, Moderate (Pain Scale 4-6 Pharmacy Consult 1 each 06/10/20 10:36 Consult Rx Perform Med Rec MISCELLANE ONCE PRN Consult order Pharmacy Consult 1 each 06/10/20 10:40 Consult Rx Vancomycin Dosing MISCELLANE DAILY PRN Consult order Pioglitazone HCl 15 mg 06/11/20 09:00 06/11/20 09:00 Pioglitazone Hcl 15 Mg Tablet PO 15 mg DAILY [facility] Administration Sodium Chloride 3 ml 06/10/20 16:00 06/11/20 09:00 0.9 % Sodium Chloride Flush 3 Ml Syringe IVFLUSH 3 ml QSHIFT [facility] Administration Tramadol HCl 50 mg 06/10/20 17:53 06/10/20 18:13 Tramadol Hcl 50 Mg Tablet PO 50 mg Q4H PRN Administration Pain, Severe (Pain Scale 7-10) Labs CBC & Chem 7: 06/11/20 06:10 06/11/20 06:10 Assessment and Plan (1) HTN (hypertension): Status: Acute (2) Diabetes mellitus, type 2: Status: Acute (3) PAD (peripheral artery disease): Problem details: Patient has undergone endovascular intervention. It was successful. Will need admission and treatment of acute infection. Thank you for allowing us to assist in her care. Status: Acute (4) Diabetic foot ulcer: Problem details: in short patient has a left leg diabetic foot ulcer. There is concern over osteomyelitis gram negative ,gram positive Status: Acute Assessment and Plan: 69F status post angiogram and angioplasty of left lower extremity with diabetic foot ulcer of left 1st toe. Admitted for leukocytosis and concern for deep infection. Left 1st toe likely osteomyelitis follow up MRI Vanco and Zosyn follow up blood cultures possible amputation later this week Peripheral vascular disease Status post angioplasty Management per vascular surgery Hypertension Lisinopril Diabetes Insulin
[2020-06-11 11:03] LABS: Glucose, Whole Blood 182 mg/dL (60-115)
[2020-06-11] MEDS: Insulin Lispro 100 UNIT/ML 3 ML VIAL SUBCUT ×3 (12:28→22:32)
--- NOTE | 2020-06-11 13:28 | MHC.CM.PN ---
talked with pt and her granddaughter with whom,SHE lives pt had no services prior to admission pt may need a vna when she is dcd pt has transportain home
--- NOTE | 2020-06-11 15:36 | PM.IDPN ---
Subjective Subjective Date of Service: 06/11/20 Interval History: Dr Jeff did some bedside debridement She is scheduled for amputation in two days of great toe Objective Data Labs CBC & Chem 7: 06/11/20 06:10 06/11/20 06:10 Labs: Laboratory Results - last 24 hr 06/10/20 06/10/20 06/11/20 16:12 20:12 04:19 WBC 16.2 H RBC 4.13 L Hgb 10.8 L Hct 34.3 L MCV 83.1 MCH 26.2 L MCHC 31.5 RDW 13.1 Plt Count 389 D MPV 10.3 Immature Gran % (Auto) 0.5 H Neut % (Auto) 31.4 L Lymph % (Auto) 63.2 H [place] % (Auto) 3.6 Eos % (Auto) 1.0 Baso % (Auto) 0.3 Lymph # (Auto) 10.2 H [place] # (Auto) 0.6 Eos # (Auto) 0.2 Baso # (Auto) 0.1 Abs Immat Gran (auto) 0.08 H Absolute Neuts (auto) 5.1 Absolute Nucleated RBC 0.000 Nucleated RBC % (auto) 0.0 Smear Tech's Comments VERIFIED Sodium Potassium Chloride Carbon Dioxide Anion Gap BUN Creatinine Estim Creat Clear Calc Estimated GFR POC Glucose 150 H 156 H Random Glucose Fasting Glucose Calcium 06/11/20 06/11/20 06/11/20 04:19 06:10 06:10 WBC 16.0 H RBC 4.21 Hgb 11.1 L Hct 34.6 L MCV 82.2 MCH 26.4 L MCHC 32.1 RDW 13.2 Plt Count 397 MPV 10.1 Immature Gran % (Auto) 0.4 Neut % (Auto) 32.2 L Lymph % (Auto) 62.2 H [place] % (Auto) 3.9 Eos % (Auto) 0.9 Baso % (Auto) 0.4 Lymph # (Auto) 9.9 H [place] # (Auto) 0.6 Eos # (Auto) 0.2 Baso # (Auto) 0.1 Abs Immat Gran (auto) 0.07 H Absolute Neuts (auto) 5.1 Absolute Nucleated RBC 0.000 Nucleated RBC % (auto) 0.0 Smear Tech's Comments Sodium 138 139 Potassium 4.8 4.5 Chloride 104 105 Carbon Dioxide 26 27 Anion Gap 13 12 BUN 23 H 21 H Creatinine 0.81 0.78 Estim Creat Clear Calc 61.5 63.9 Estimated GFR > 60 > 60 POC Glucose Random Glucose 162 H Fasting Glucose 140 H Calcium 9.3 9.1 06/11/20 06/11/20 07:04 10:58 WBC RBC Hgb Hct MCV MCH MCHC RDW Plt Count MPV Immature Gran % (Auto) Neut % (Auto) Lymph % (Auto) [place] % (Auto) Eos % (Auto) Baso % (Auto) Lymph # (Auto) [place] # (Auto) Eos # (Auto) Baso # (Auto) Abs Immat Gran (auto) Absolute Neuts (auto) Absolute Nucleated RBC Nucleated RBC % (auto) Smear Tech's Comments Sodium Potassium Chloride Carbon Dioxide Anion Gap BUN Creatinine Estim Creat Clear Calc Estimated GFR POC Glucose 149 H 182 H Random Glucose Fasting Glucose Calcium Microbiology Microbiology Results: Microbiology 06/10/20 13:25 Blood - Venous Blood Culture - Preliminary No growth after 24 hours. 06/10/20 13:25 Blood - Venous Blood Culture - Preliminary No growth after 24 hours. Physical Exam Vital Signs: Vital Signs: Last Vital Signs Temp 98.3 F 06/11/20 11:16 Pulse 101 H 06/11/20 11:16 Resp 18 06/11/20 11:16 BP 105/77 06/11/20 11:16 Pulse Ox 98 06/11/20 11:16 Body Mass Index 30.5 Const: General: cooperative HENMT: Head: Yes normal to inspection Mouth: Normal oral and palatal mucosa present Resp: Effort & Inspection: normal respiratory effort Cardio: Rate: regular rate Rhythm: regular rhythm GI: Palpation (GI): Soft to palpation and nontender Extrem: Other: necrotic great toe ,healing heel Assessment and Plan Assessment and plan (1) Osteomyelitis: Problem details: Osteomyelitis, left great toe Scheduled for amputation Status: Acute Assessment and Plan: Continue IV antibiotics until and then po Augmentin on discharge No residential antibiotics are necessary if area of infection removed Time Spent With Patient Time: Total time spent is greater than 50% in coordination of care (as documented) at patient's floor/unit and/or counseling patient: Time with patient: 15 - 24 minutes
[2020-06-11 16:09] LABS: Glucose, Whole Blood 193 mg/dL (60-115)
[2020-06-11] MEDS: traMADoL HCL 50 MG TABLET PO (18:18)
[2020-06-11 21:09] LABS: Glucose, Whole Blood 153 mg/dL (60-115)
[2020-06-11] MEDS: Atorvastatin Calcium 40 MG TABLET PO (22:30)
[2020-06-12] VITALS (7 sets, daily range): BP systolic 106–163; BP diastolic 53–77; PULSE 86–101; RESP 16–19; TEMP 36.1–37.1; O2SAT 98–100
[2020-06-12] MEDS: 0.9 % Sodium Chloride Flush 3 ML SYRINGE IVFLUSH ×3 (01:23→21:22)
[2020-06-12 05:04] LABS: Hematocrit 33.6 % (37-47); Hemoglobin 10.7 g/dl (12.0-16.0); Mean Corpuscular HGB Conc 31.8 g/dl (31.0-35.0); Mean Corpuscular Hemoglobin 26.2 pg (27.0-33.0); Mean Corpuscular Volume 82.2 fL (80-98); Mean Platelet Volume 10.4 fL (9.4-12.3); Platelet Count 372 X10*3/uL (160-400); Red Blood Count 4.09 X10*6/uL (4.20-5.50); Red Cell Distribution Width 13.1 % (11.0-16.0); White Blood Count 13.5 X10*3/uL (4.8-10.8)
[2020-06-12 05:28] LABS: Anion Gap 12 (12-20); Blood Urea Nitrogen 15 mg/dL (9-16); Calcium 9.3 mg/dL (8.4-10.2); Carbon Dioxide 27 mmol/L (22-29); Chloride 106 mmol/L (96-108); Creatinine Clr Calc Pharmacy 66.5; Estimated Glomerular Filt Rate > 60; Glucose Fasting 129 mg/dL (60-99); Potassium 5.2 mmol/L (3.3-5.1); Sodium 140 mmol/L (135-145)
[2020-06-12] MEDS: Omeprazole 20 MG CAPSULE.DR PO (05:47)
[2020-06-12] MEDS: Piperacillin Sodium/Tazobactam 3.375 GM in 0.9 % Sodium Chloride 50 ML IV ×3 (05:47→17:41)
[2020-06-12 07:06] LABS: Glucose, Whole Blood 150 mg/dL (60-115)
--- NOTE | 2020-06-12 07:46 | HO.VASCPN ---
Subjective Subjective Date of Service: 06/12/20 Patient reports: no new complaints and feels better Interval history: 69-year-old female with nonhealing left great toe ulcer for follow-up. Of note patient had MRI yesterday. Appears to be doing relatively well today. Pain well controlled. Physical Exam Vital Signs: Vital Signs: Last Vital Signs Temp 97.8 F 06/12/20 03:13 Pulse 88 06/12/20 03:13 Resp 18 06/12/20 03:13 BP 116/53 L 06/12/20 03:13 Pulse Ox 99 06/12/20 03:13 Body Mass Index 30.5 Const: General: cooperative, healthy appearing and no acute distress Orientation/consciousness: oriented to person, oriented to place and oriented to time HENMT: Head: Yes normal to inspection Neck: Carotids: no bruits Chest: Chest palpation & inspection: normal inspection of the chest Resp: Effort & Inspection: normal respiratory effort and able to speak in complete sentences Auscultation: clear to auscultation bilaterally Cardio: Rate: regular rate Heart sounds: S1 normal heart sound present and S2 normal heart sound present GI: Inspection: Yes normal to inspection Skin: General skin exam: no rashes or lesions noted Wounds: wounds noted (Left great toe gangrene) Neuro: General: oriented to person, oriented to place, oriented to time and CN's II-XI intact bilaterally Extrem: General: Yes normal to inspection, Yes full ROM and Yes no clubbing, cyanosis or edema Psych: Appearance: grossly normal and well kempt Speech and movement: Normal speech and movement present Affect: normal affect Progress Note: A&P Assessment and plan (1) PAD (peripheral artery disease): Status: Acute Assessment and Plan: Patient is status post endovascular intervention. It appears to be doing relatively well. Results of MRI were reviewed with the patient. She has underlying osteomyelitis with multiple fractures. She will be best served with an amputation. This was discussed with the patient in she was in agreement. The patient will be scheduled for left great toe amputation. Risks benefits complications of the procedure were discussed in detail with the patient. She understood and consented. The patient had an opportunity to ask questions regarding the treatment plan. All questions were answered. Imaging studies, laboratory studies and physical exam results were discussed and reviewed in detail. No major barriers to understanding were identified. The patient expressed understanding and agreement with the above treatment plan. The patient is aware they should contact our office by phone for worsening of the current condition or the appearance of new symptoms. Thank you for allowing me to participate in the vascular care of this patient. If you have any questions or concerns regarding the treatment for the above condition please do not hesitate to contact me. The office telephone contact is [phone]. This note is constructed using voice recognition software. While every effort has been made to ensure accuracy, catalogue maker errors may have been included. Thank you for allowing me to participate in the care of your patient. Yours sincerely, Aidan Jeff MD, FACS, R.P.V.I. Fall Risk Details Current Medications: Current Medications Generic Name Dose Route Start Last Admin Trade Name Freq PRN Reason Stop Dose Admin Acetaminophen 650 mg 06/10/20 09:47 Acetaminophen 325 Mg Tablet PO Q6H PRN Pain, Mild (Pain Scale 1-3) Aspirin 81 mg 06/11/20 09:00 06/11/20 09:00 Aspirin 81 Mg Tab.Chew PO 81 mg DAILY [facility]Y Administration Atorvastatin Calcium 40 mg 06/10/20 21:00 06/11/20 22:30 Atorvastatin Calcium 40 Mg Tablet PO 40 mg BEDTIME [facility]Y Administration Clopidogrel Bisulfate 75 mg 06/11/20 09:00 06/11/20 09:00 Clopidogrel Bisulfate 75 Mg Tablet PO 75 mg DAILY [facility] Administration Gabapentin 100 mg 06/10/20 21:00 06/11/20 22:30 Gabapentin 100 Mg Capsule PO 100 mg BID MARKY Administration Heparin Sodium (Porcine) 5,000 unit 06/10/20 10:00 06/12/20 01:48 Heparin Sodium,Porcine 5,000 Unit/Ml Vial SUBCUT Not Given Q8H MARKY Vancomycin HCl 750 mg/ 275 mls @ 183.333 mls/hr 06/10/20 13:00 06/11/20 17:15 Vancomycin HCl 500 mg/ Sodium IV Infused Chloride Q24H MARKY Infusion Piperacillin Sod/Tazobactam 50 mls @ 100 mls/hr 06/10/20 18:00 06/12/20 06:19 Sod 3.375 gm/ Sodium Chloride IV Infused Q6H MARKY Infusion Insulin Human Lispro 0 unit 06/10/20 11:30 06/12/20 07:24 Insulin Lispro 100 Unit/Ml 3 Ml Vial SUBCUT Not Given QIDACHS [facility] Protocol Lisinopril 40 mg 06/11/20 09:00 06/11/20 09:00 Lisinopril 40 Mg Tablet PO 40 mg DAILY MARKY Administration Protocol Morphine Sulfate 2 mg 06/10/20 09:47 Morphine Sulfate 2 Mg/Ml Cartridge IVPUSH Q4H PRN Pain, Severe (Pain Scale 7-10) Omeprazole 20 mg 06/11/20 06:30 06/12/20 05:47 Omeprazole 20 Mg Capsule.Dr PO 20 mg DAILY@0630 [facility] Administration Oxycodone HCl 5 mg 06/10/20 09:47 Oxycodone Hcl Immed Release 5 Mg Tablet PO Q4H PRN Pain, Moderate (Pain Scale 4-6 Pharmacy Consult 1 each 06/10/20 10:36 Consult Rx Perform Med Rec MISCELLANE ONCE PRN Consult order Pharmacy Consult 1 each 06/10/20 10:40 Consult Rx Vancomycin Dosing MISCELLANE DAILY PRN Consult order Pioglitazone HCl 15 mg 06/11/20 09:00 06/11/20 09:00 Pioglitazone Hcl 15 Mg Tablet PO 15 mg DAILY [facility] Administration Sodium Chloride 3 ml 06/10/20 16:00 06/12/20 01:23 0.9 % Sodium Chloride Flush 3 Ml Syringe IVFLUSH 3 ml QSHIFT [facility] Administration Tramadol HCl 50 mg 06/10/20 17:53 06/11/20 18:18 Tramadol Hcl 50 Mg Tablet PO 50 mg Q4H PRN Administration Pain, Severe (Pain Scale 7-10) Time Spent With Patient Time: Total time spent is greater than 50% in coordination of care (as documented) at patient's floor/unit and/or counseling patient: Time with patient: 15 - 24 minutes Procedures Date of Service Date of Service: 06/12/20
[2020-06-12 07:51] LABS: Lymphocytes Absolute Manual 9.9 X10*3/uL (0.6-4.8); Lymphocytes Percent Manual 73 % (20-40); Monocytes Absolute Manual 0.4 X10*3/uL (0.0-1.2); Monocytes Percent Manual 3 % (2-11); Neutrophils Percent Manual 24 % (45-73)
[2020-06-12 07:52] LABS: Burr Cells 2+
[2020-06-12 07:53] LABS: Hypochromasia 1+; Platelet Estimate NORMAL (NORMAL); Platelet Morphology Comment NORMAL; RBC Morphology NOTED; Smudge Cells PRESENT
--- NOTE | 2020-06-12 08:34 | MHC.CM.PN ---
DP Female 69 scheduled for L great toe amp r/t osteo/multi fx. A referral was made to [facility]. Request they follow for DC needs. Anticipate DC 1-2 days. CM will follow. Pt will arrange for transportation to home.
[2020-06-12] MEDS: Aspirin 81 MG TAB.CHEW PO (08:40)
[2020-06-12] MEDS: Clopidogrel Bisulfate 75 MG TABLET PO (08:40)
[2020-06-12] MEDS: Gabapentin 100 MG CAPSULE PO ×2 (08:40→21:17)
[2020-06-12] MEDS: Heparin Sodium,Porcine 5,000 UNIT/ML VIAL 5000 UNIT SUBCUT ×2 (08:41→17:41)
[2020-06-12 09:47] LABS: Band Neutrophils Percent 0 % (3-5); Neutrophils Absolute Manual 3.2 X10*3/uL (2.2-7.9)
[2020-06-12 11:06] LABS: Glucose, Whole Blood 213 mg/dL (60-115)
--- NOTE | 2020-06-12 11:14 | HO.PM.IMPN ---
Subjective Subjective Date of Service: 06/12/20 Interval History: no complaints Cardiovascular Cardiovascular: Reports no additional cardiovascular complaints Gastrointestinal Gastrointestinal: Reports no additional gastrointestinal complaints Physical Exam Vital Signs: Vital Signs: Last Vital Signs Temp 97 F 06/12/20 08:00 Pulse 100 06/12/20 08:41 Resp 16 06/12/20 08:00 BP 106/61 06/12/20 08:41 Pulse Ox 100 06/12/20 08:00 Body Mass Index 30.5 General: AO X 3, no acute distress Resp: CTA bilateral CVS: S1,S2,RRR GI: soft, non tender, non distended Neuro: motor grossly intact Psych: appropriate affect left 1st toe om Objective Data Current Medications Generic Name Dose Route Start Last Admin Trade Name Freq PRN Reason Stop Dose Admin Acetaminophen 650 mg 06/10/20 09:47 Acetaminophen 325 Mg Tablet PO Q6H PRN Pain, Mild (Pain Scale 1-3) Aspirin 81 mg 06/11/20 09:00 06/12/20 08:40 Aspirin 81 Mg Tab.Chew PO 81 mg DAILY [facility]Y Administration Atorvastatin Calcium 40 mg 06/10/20 21:00 06/11/20 22:30 Atorvastatin Calcium 40 Mg Tablet PO 40 mg BEDTIME [facility]Y Administration Clopidogrel Bisulfate 75 mg 06/11/20 09:00 06/12/20 08:40 Clopidogrel Bisulfate 75 Mg Tablet PO 75 mg DAILY [facility] Administration Gabapentin 100 mg 06/10/20 21:00 06/12/20 08:40 Gabapentin 100 Mg Capsule PO 100 mg BID MARKY Administration Heparin Sodium (Porcine) 5,000 unit 06/10/20 10:00 06/12/20 08:41 Heparin Sodium,Porcine 5,000 Unit/Ml Vial SUBCUT 5,000 unit Q8H [facility]Y Administration Vancomycin HCl 750 mg/ 275 mls @ 183.333 mls/hr 06/10/20 13:00 06/11/20 17:15 Vancomycin HCl 500 mg/ Sodium IV Infused Chloride Q24H [facility]Y Infusion Piperacillin Sod/Tazobactam 50 mls @ 100 mls/hr 06/10/20 18:00 06/12/20 06:19 Sod 3.375 gm/ Sodium Chloride IV Infused Q6H [facility] Infusion Insulin Human Lispro 0 unit 06/10/20 11:30 06/12/20 07:24 Insulin Lispro 100 Unit/Ml 3 Ml Vial SUBCUT Not Given QIDACHS [facility] Protocol Lisinopril 40 mg 06/11/20 09:00 06/12/20 08:41 Lisinopril 40 Mg Tablet PO 40 mg DAILY MARKY Administration Protocol Morphine Sulfate 2 mg 06/10/20 09:47 Morphine Sulfate 2 Mg/Ml Cartridge IVPUSH Q4H PRN Pain, Severe (Pain Scale 7-10) Omeprazole 20 mg 06/11/20 06:30 06/12/20 05:47 Omeprazole 20 Mg Capsule.Dr PO 20 mg DAILY@0630 [facility] Administration Oxycodone HCl 5 mg 06/10/20 09:47 Oxycodone Hcl Immed Release 5 Mg Tablet PO Q4H PRN Pain, Moderate (Pain Scale 4-6 Pharmacy Consult 1 each 06/10/20 10:36 Consult Rx Perform Med Rec MISCELLANE ONCE PRN Consult order Pharmacy Consult 1 each 06/10/20 10:40 Consult Rx Vancomycin Dosing MISCELLANE DAILY PRN Consult order Pioglitazone HCl 15 mg 06/11/20 09:00 06/12/20 08:40 Pioglitazone Hcl 15 Mg Tablet PO 15 mg DAILY [facility] Administration Sodium Chloride 3 ml 06/10/20 16:00 06/12/20 08:41 0.9 % Sodium Chloride Flush 3 Ml Syringe IVFLUSH 3 ml QSHIFT [facility] Administration Tramadol HCl 50 mg 06/10/20 17:53 06/11/20 18:18 Tramadol Hcl 50 Mg Tablet PO 50 mg Q4H PRN Administration Pain, Severe (Pain Scale 7-10) Labs CBC & Chem 7: 06/12/20 04:09 06/12/20 04:09 Microbiology Microbiology Results: Microbiology 06/10/20 13:25 Blood - Venous Blood Culture - Preliminary No growth after 24 hours. 06/10/20 13:25 Blood - Venous Blood Culture - Preliminary No growth after 24 hours. Assessment and Plan (1) HTN (hypertension): Status: Acute (2) Diabetes mellitus, type 2: Status: Acute (3) PAD (peripheral artery disease): Status: Acute (4) Diabetic foot ulcer: Problem details: in short patient has a left leg diabetic foot ulcer. There is concern over osteomyelitis gram negative ,gram positive Status: Acute Assessment and Plan: 69F status post angiogram and angioplasty of left lower extremity with diabetic foot ulcer of left 1st toe. Admitted for leukocytosis and concern for deep infection. Left 1st toe osteomyelitis Vanco and Zosyn blood cultures negative so far plan for amputation this week Peripheral vascular disease Status post angioplasty Hypertension Lisinopril Diabetes Insulin peripheral smear with monotonous lymphs, smudge cells concerning for lymphoproliferative disorder follow up outpatient with hematology
[2020-06-12] MEDS: Insulin Lispro 100 UNIT/ML 3 ML VIAL SUBCUT ×3 (11:33→21:17)
[2020-06-12 16:11] LABS: Glucose, Whole Blood 159 mg/dL (60-115)
[2020-06-12 19:47] LABS: Glucose, Whole Blood 190 mg/dL (60-115)
[2020-06-12] MEDS: traMADoL HCL 50 MG TABLET PO (21:17)
[2020-06-12] MEDS: Atorvastatin Calcium 40 MG TABLET PO (21:17)
[2020-06-13] VITALS (18 sets, daily range): BP systolic 101–145; BP diastolic 60–87; PULSE 82–119; RESP 16–20; TEMP 36.2–37.1; O2SAT 95–100
[2020-06-13] MEDS: Piperacillin Sodium/Tazobactam 3.375 GM in 0.9 % Sodium Chloride 50 ML IV ×5 (00:16→23:32)
[2020-06-13] MEDS: Heparin Sodium,Porcine 5,000 UNIT/ML VIAL 5000 UNIT SUBCUT ×2 (02:42→17:24)
[2020-06-13 05:51] LABS: Anion Gap 14 (12-20); Blood Urea Nitrogen 16 mg/dL (9-16); Calcium 9.5 mg/dL (8.4-10.2); Carbon Dioxide 26 mmol/L (22-29); Chloride 105 mmol/L (96-108); Creatinine Clr Calc Pharmacy 63.4; Estimated Glomerular Filt Rate > 60; Glucose Fasting 131 mg/dL (60-99); Potassium 4.7 mmol/L (3.3-5.1); Sodium 140 mmol/L (135-145)
[2020-06-13] MEDS: Omeprazole 20 MG CAPSULE.DR PO (06:12)
[2020-06-13 07:08] LABS: Glucose, Whole Blood 147 mg/dL (60-115)
[2020-06-13] MEDS: Gabapentin 100 MG CAPSULE PO ×2 (09:09→21:06)
[2020-06-13] MEDS: 0.9 % Sodium Chloride Flush 3 ML SYRINGE IVFLUSH ×3 (09:09→21:06)
[2020-06-13 11:06] LABS: COVID-19 Test Negative (Negative)
[2020-06-13 11:07] LABS: Glucose, Whole Blood 151 mg/dL (60-115)
--- NOTE | 2020-06-13 11:08 | HO.PM.IMPN ---
Subjective Subjective Date of Service: 06/13/20 Interval History: no complaints Cardiovascular Cardiovascular: Reports no additional cardiovascular complaints Gastrointestinal Gastrointestinal: Reports no additional gastrointestinal complaints Physical Exam Vital Signs: Vital Signs: Last Vital Signs Temp 98.2 F 06/13/20 07:30 Pulse 98 06/13/20 07:30 Resp 17 06/13/20 07:30 BP 135/78 06/13/20 07:30 Pulse Ox 98 06/13/20 07:30 Body Mass Index 30.0 General: AO X 3, no acute distress Resp: CTA bilateral CVS: S1,S2,RRR GI: soft, non tender, non distended Neuro: motor grossly intact Psych: appropriate affect Objective Data Current Medications Generic Name Dose Route Start Last Admin Trade Name Freq PRN Reason Stop Dose Admin Acetaminophen 650 mg 06/10/20 09:47 Acetaminophen 325 Mg Tablet PO Q6H PRN Pain, Mild (Pain Scale 1-3) Aspirin 81 mg 06/11/20 09:00 06/13/20 09:10 Aspirin 81 Mg Tab.Chew PO Not Given DAILY [facility] Atorvastatin Calcium 40 mg 06/10/20 21:00 06/12/20 21:17 Atorvastatin Calcium 40 Mg Tablet PO 40 mg BEDTIME MARKY Administration Clopidogrel Bisulfate 75 mg 06/11/20 09:00 06/13/20 09:10 Clopidogrel Bisulfate 75 Mg Tablet PO Not Given DAILY MARKY Gabapentin 100 mg 06/10/20 21:00 06/13/20 09:09 Gabapentin 100 Mg Capsule PO 100 mg BID MARKY Administration Heparin Sodium (Porcine) 5,000 unit 06/10/20 10:00 06/13/20 09:10 Heparin Sodium,Porcine 5,000 Unit/Ml Vial SUBCUT Not Given Q8H MARKY Vancomycin HCl 750 mg/ 275 mls @ 183.333 mls/hr 06/10/20 13:00 06/12/20 15:32 Vancomycin HCl 500 mg/ Sodium IV Infused Chloride Q24H [facility]Y Infusion Piperacillin Sod/Tazobactam 50 mls @ 100 mls/hr 06/10/20 18:00 06/13/20 07:15 Sod 3.375 gm/ Sodium Chloride IV Infused Q6H [facility] Infusion Insulin Human Lispro 0 unit 06/10/20 11:30 06/13/20 09:09 Insulin Lispro 100 Unit/Ml 3 Ml Vial SUBCUT Not Given QIDACHS [facility] Protocol Lisinopril 40 mg 06/11/20 09:00 06/13/20 09:09 Lisinopril 40 Mg Tablet PO 40 mg DAILY [facility]Y Administration Protocol Morphine Sulfate 2 mg 06/10/20 09:47 Morphine Sulfate 2 Mg/Ml Cartridge IVPUSH Q4H PRN Pain, Severe (Pain Scale 7-10) Omeprazole 20 mg 06/11/20 06:30 06/13/20 06:12 Omeprazole 20 Mg Capsule.Dr PO 20 mg DAILY@0630 [facility] Administration Oxycodone HCl 5 mg 06/10/20 09:47 Oxycodone Hcl Immed Release 5 Mg Tablet PO Q4H PRN Pain, Moderate (Pain Scale 4-6 Pharmacy Consult 1 each 06/10/20 10:36 Consult Rx Perform Med Rec MISCELLANE ONCE PRN Consult order Pharmacy Consult 1 each 06/10/20 10:40 Consult Rx Vancomycin Dosing MISCELLANE DAILY PRN Consult order Pioglitazone HCl 15 mg 06/11/20 09:00 06/13/20 09:10 Pioglitazone Hcl 15 Mg Tablet PO Not Given DAILY [facility] Sodium Chloride 3 ml 06/10/20 16:00 06/13/20 09:09 0.9 % Sodium Chloride Flush 3 Ml Syringe IVFLUSH 3 ml QSHIFT [facility] Administration Tramadol HCl 50 mg 06/10/20 17:53 06/12/20 21:17 Tramadol Hcl 50 Mg Tablet PO 50 mg Q4H PRN Administration Pain, Severe (Pain Scale 7-10) Labs CBC & Chem 7: 06/12/20 04:09 06/13/20 04:14 Microbiology Microbiology Results: Microbiology 06/10/20 13:25 Blood - Venous Blood Culture - Preliminary No growth after 48 hours. 06/10/20 13:25 Blood - Venous Blood Culture - Preliminary No growth after 48 hours. Assessment and Plan (1) HTN (hypertension): Status: Acute (2) Diabetes mellitus, type 2: Status: Acute (3) PAD (peripheral artery disease): Status: Acute (4) Diabetic foot ulcer: Problem details: in short patient has a left leg diabetic foot ulcer. There is concern over osteomyelitis gram negative ,gram positive Status: Acute Assessment and Plan: 69F status post angiogram and angioplasty of left lower extremity with diabetic foot ulcer of left 1st toe. Admitted for leukocytosis and concern for deep infection. Left 1st toe osteomyelitis Vanco and Zosyn blood cultures negative so far plan for amputation today Peripheral vascular disease Status post angioplasty Hypertension Lisinopril Diabetes Insulin peripheral smear with monotonous lymphs, smudge cells concerning for lymphoproliferative disorder follow up outpatient with hematology
--- NOTE | 2020-06-13 11:52 | P.CONAN_ITS ---
[facility] Active Problems Active Problems: All Active Problems (Updated 06/12/20 @ 07:47 by Aidan Jeff MD) Osteomyelitis (Acute) HTN (hypertension) (Acute) Diabetes mellitus, type 2 (Acute) PAD (peripheral artery disease) (Acute) Diabetic foot ulcer (Acute) Past Medical History Medical History Diabetes mellitus, type 2 HTN (hypertension) Hx of cataract Osteomyelitis Surgical History Surgical History H/O: hysterectomy History of carpal tunnel release Social History Social History Household Members: None Housing: House Do you presently have visiting nurse or other home services: No Smoking Status: Former smoker Tobacco Type: Cigarette Smoked in Last 30 Days: No Smoking Quit Date: 2005 Use of substances other than those prescribed or required for medical reasons: No Currently Displaying Signs/Symptoms of Drug Intoxication Withdrawal: No Have you been hit, kicked, punched, or otherwise hurt by someone within the past year? If so, by whom?: No Do you feel safe in your current relationship?: No Current Relationship Is there a partner from a previous relationship who is making you feel unsafe now?: No Are you made to feel afraid or neglected: No Advance Directives: No Advance Directives Information Provided: Yes Do you have thoughts of harming others: None Do you have a plan to hurt others: No Plan Recently lost weight without trying: No service: No Meds Allergies Allergy/AdvReac Type Severity Reaction Status Date / Time Milk Containing Products Allergy Mild DIARRHEA Verified 06/04/20 13:25 [Milk Products] Active Medications: Current Medications Generic Name Dose Route Start Last Admin Trade Name Freq PRN Reason Stop Dose Admin Acetaminophen 650 mg 06/10/20 09:47 Acetaminophen 325 Mg Tablet PO Q6H PRN Pain, Mild (Pain Scale 1-3) Aspirin 81 mg 06/11/20 09:00 06/13/20 09:10 Aspirin 81 Mg Tab.Chew PO Not Given DAILY MARKY Atorvastatin Calcium 40 mg 06/10/20 21:00 06/12/20 21:17 Atorvastatin Calcium 40 Mg Tablet PO 40 mg BEDTIME MARKY Administration Clopidogrel Bisulfate 75 mg 06/11/20 09:00 06/13/20 09:10 Clopidogrel Bisulfate 75 Mg Tablet PO Not Given DAILY [facility] Gabapentin 100 mg 06/10/20 21:00 06/13/20 09:09 Gabapentin 100 Mg Capsule PO 100 mg BID [facility] Administration Heparin Sodium (Porcine) 5,000 unit 06/10/20 10:00 06/13/20 09:10 Heparin Sodium,Porcine 5,000 Unit/Ml Vial SUBCUT Not Given Q8H MARKY Vancomycin HCl 750 mg/ 275 mls @ 183.333 mls/hr 06/10/20 13:00 06/12/20 15:32 Vancomycin HCl 500 mg/ Sodium IV Infused Chloride Q24H MARKY Infusion Piperacillin Sod/Tazobactam 50 mls @ 100 mls/hr 06/10/20 18:00 06/13/20 11:08 Sod 3.375 gm/ Sodium Chloride IV 100 mls/hr Q6H [facility] Administration Insulin Human Lispro 0 unit 06/10/20 11:30 06/13/20 11:09 Insulin Lispro 100 Unit/Ml 3 Ml Vial SUBCUT Not Given QIDACHS [facility] Protocol Lisinopril 40 mg 06/11/20 09:00 06/13/20 09:09 Lisinopril 40 Mg Tablet PO 40 mg DAILY [facility] Administration Protocol Morphine Sulfate 2 mg 06/10/20 09:47 Morphine Sulfate 2 Mg/Ml Cartridge IVPUSH Q4H PRN Pain, Severe (Pain Scale 7-10) Omeprazole 20 mg 06/11/20 06:30 06/13/20 06:12 Omeprazole 20 Mg Capsule.Dr PO 20 mg DAILY@0630 [facility] Administration Oxycodone HCl 5 mg 06/10/20 09:47 Oxycodone Hcl Immed Release 5 Mg Tablet PO Q4H PRN Pain, Moderate (Pain Scale 4-6 Pharmacy Consult 1 each 06/10/20 10:36 Consult Rx Perform Med Rec MISCELLANE ONCE PRN Consult order Pharmacy Consult 1 each 06/10/20 10:40 Consult Rx Vancomycin Dosing MISCELLANE DAILY PRN Consult order Pioglitazone HCl 15 mg 06/11/20 09:00 06/13/20 09:10 Pioglitazone Hcl 15 Mg Tablet PO Not Given DAILY [facility] Sodium Chloride 3 ml 06/10/20 16:00 06/13/20 09:09 0.9 % Sodium Chloride Flush 3 Ml Syringe IVFLUSH 3 ml QSHIFT [facility] Administration Tramadol HCl 50 mg 06/10/20 17:53 06/12/20 21:17 Tramadol Hcl 50 Mg Tablet PO 50 mg Q4H PRN Administration Pain, Severe (Pain Scale 7-10) Home Medications Medication Instructions Recorded Confirmed Last Taken Type atorvastatin 40 mg PO BEDTIME 06/10/20 06/10/20 Unknown History empagliflozin [Jardiance] 10 mg PO DAILY 06/10/20 06/10/20 Unknown History gabapentin 100 mg PO BID 06/10/20 06/10/20 Unknown History glipizide 10 mg PO DAILY 06/10/20 06/10/20 Unknown History lisinopril 40 mg PO DAILY 06/10/20 06/10/20 Unknown History pantoprazole 40 mg PO DAILY@0630 06/10/20 06/10/20 Unknown History pioglitazone 15 mg PO DAILY 06/10/20 06/10/20 Unknown History Exam Exam Date and Time: June 13, 2020 1152 Height,Weight and Vital Signs: Height 5 ft 2 in Weight 74.6 kg Last Vital Signs Temp 97.8 F 06/13/20 11:43 Pulse 109 H 06/13/20 11:43 Resp 18 06/13/20 11:43 BP 139/87 06/13/20 11:43 Pulse Ox 98 06/13/20 11:43 Pertinent Lab Results Pertinent Lab Results: Laboratory Tests 06/10/20 06/10/20 06/10/20 06:11 06:37 06:37 WBC 25.0 H RBC 4.78 Hgb 12.7 Hct 39.6 MCV 82.8 MCH 26.6 L MCHC 32.1 RDW 13.0 Plt Count 563 H MPV 10.1 Immature Gran % (Auto) Neut % (Auto) Lymph % (Auto) [place] % (Auto) Eos % (Auto) Baso % (Auto) Lymph # (Auto) [place] # (Auto) Eos # (Auto) Baso # (Auto) Abs Immat Gran (auto) Absolute Neuts (auto) Absolute Nucleated RBC 0.000 Nucleated RBC % (auto) 0.0 Neutrophils % (Manual) Band Neutrophils % Lymphocytes % (Manual) Monocytes % (Manual) Abs Neuts (Manual) Lymphocytes # (Manual) Monocytes # (Manual) Smudge Cells Platelet Estimate Plt Morphology Comment RBC Morphology Hypochromasia Perla Cells Smear Tech's Comments Smear Path Review PT 12.9 INR 1.1 Sodium Potassium Chloride Carbon Dioxide Anion Gap BUN Creatinine Estim Creat Clear Calc Estimated GFR POC Glucose 251 H Random Glucose Fasting Glucose Calcium COVID-19 (NGA) COVID-19 [facility] 06/10/20 06/10/20 06/10/20 06:37 12:31 16:12 WBC RBC Hgb Hct MCV MCH MCHC RDW Plt Count MPV Immature Gran % (Auto) Neut % (Auto) Lymph % (Auto) [place] % (Auto) Eos % (Auto) Baso % (Auto) Lymph # (Auto) [place] # (Auto) Eos # (Auto) Baso # (Auto) Abs Immat Gran (auto) Absolute Neuts (auto) Absolute Nucleated RBC Nucleated RBC % (auto) Neutrophils % (Manual) Band Neutrophils % Lymphocytes % (Manual) Monocytes % (Manual) Abs Neuts (Manual) Lymphocytes # (Manual) Monocytes # (Manual) Smudge Cells Platelet Estimate Plt Morphology Comment RBC Morphology Hypochromasia Breaks Cells Smear Tech's Comments Smear Path Review PT INR Sodium 137 Potassium 4.3 Chloride 100 Carbon Dioxide 26 Anion Gap 15 BUN Creatinine 1.19 Estim Creat Clear Calc 41.9 Estimated GFR 45 POC Glucose 138 H 150 H Random Glucose Fasting Glucose Calcium COVID-19 (NGA) COVID-19 Clin [employer] 06/10/20 06/11/20 06/11/20 20:12 04:19 04:19 WBC 16.2 H RBC 4.13 L Hgb 10.8 L Hct 34.3 L MCV 83.1 MCH 26.2 L MCHC 31.5 RDW 13.1 Plt Count 389 D MPV 10.3 Immature Gran % (Auto) 0.5 H Neut % (Auto) 31.4 L Lymph % (Auto) 63.2 H [place] % (Auto) 3.6 Eos % (Auto) 1.0 Baso % (Auto) 0.3 Lymph # (Auto) 10.2 H [place] # (Auto) 0.6 Eos # (Auto) 0.2 Baso # (Auto) 0.1 Abs Immat Gran (auto) 0.08 H Absolute Neuts (auto) 5.1 Absolute Nucleated RBC 0.000 Nucleated RBC % (auto) 0.0 Neutrophils % (Manual) Band Neutrophils % Lymphocytes % (Manual) Monocytes % (Manual) Abs Neuts (Manual) Lymphocytes # (Manual) Monocytes # (Manual) Smudge Cells Platelet Estimate Plt Morphology Comment RBC Morphology Hypochromasia Perla Cells Smear Tech's Comments VERIFIED Smear Path Review SEE NOTE PT INR Sodium 138 Potassium 4.8 Chloride 104 Carbon Dioxide 26 Anion Gap 13 BUN 23 H Creatinine 0.81 Estim Creat Clear Calc 61.5 Estimated GFR > 60 POC Glucose 156 H Random Glucose Fasting Glucose 140 H Calcium 9.3 COVID-19 (NGA) COVID-19 [facility] 06/11/20 06/11/20 06/11/20 06:10 06:10 07:04 WBC 16.0 H RBC 4.21 Hgb 11.1 L Hct 34.6 L MCV 82.2 MCH 26.4 L MCHC 32.1 RDW 13.2 Plt Count 397 MPV 10.1 Immature Gran % (Auto) 0.4 Neut % (Auto) 32.2 L Lymph % (Auto) 62.2 H [place] % (Auto) 3.9 Eos % (Auto) 0.9 Baso % (Auto) 0.4 Lymph # (Auto) 9.9 H [place] # (Auto) 0.6 Eos # (Auto) 0.2 Baso # (Auto) 0.1 Abs Immat Gran (auto) 0.07 H Absolute Neuts (auto) 5.1 Absolute Nucleated RBC 0.000 Nucleated RBC % (auto) 0.0 Neutrophils % (Manual) Band Neutrophils % Lymphocytes % (Manual) Monocytes % (Manual) Abs Neuts (Manual) Lymphocytes # (Manual) Monocytes # (Manual) Smudge Cells Platelet Estimate Plt Morphology Comment RBC Morphology Hypochromasia Perla Cells Smear Tech's Comments Smear Path Review PT INR Sodium 139 Potassium 4.5 Chloride 105 Carbon Dioxide 27 Anion Gap 12 BUN 21 H Creatinine 0.78 Estim Creat Clear Calc 63.9 Estimated GFR > 60 POC Glucose 149 H Random Glucose 162 H Fasting Glucose Calcium 9.1 COVID-19 (NGA) COVID-19 [facility] 06/11/20 06/11/20 06/11/20 10:58 16:03 21:06 WBC RBC Hgb Hct MCV MCH MCHC RDW Plt Count MPV Immature Gran % (Auto) Neut % (Auto) Lymph % (Auto) [place] % (Auto) Eos % (Auto) Baso % (Auto) Lymph # (Auto) [place] # (Auto) Eos # (Auto) Baso # (Auto) Abs Immat Gran (auto) Absolute Neuts (auto) Absolute Nucleated RBC Nucleated RBC % (auto) Neutrophils % (Manual) Band Neutrophils % Lymphocytes % (Manual) Monocytes % (Manual) Abs Neuts (Manual) Lymphocytes # (Manual) Monocytes # (Manual) Smudge Cells Platelet Estimate Plt Morphology Comment RBC Morphology Hypochromasia Perla Cells Smear Tech's Comments Smear Path Review PT INR Sodium Potassium Chloride Carbon Dioxide Anion Gap BUN Creatinine Estim Creat Clear Calc Estimated GFR POC Glucose 182 H 193 H 153 H Random Glucose Fasting Glucose Calcium COVID-19 (NGA) COVID-[facility] 06/12/20 06/12/20 06/12/20 04:09 04:09 07:02 WBC 13.5 H RBC 4.09 L Hgb 10.7 L Hct 33.6 L MCV 82.2 MCH 26.2 L MCHC 31.8 RDW 13.1 Plt Count 372 MPV 10.4 Immature Gran % (Auto) Cancelled Neut % (Auto) Cancelled Lymph % (Auto) Cancelled [place] % (Auto) Cancelled Eos % (Auto) Cancelled Baso % (Auto) Cancelled Lymph # (Auto) Cancelled [place] # (Auto) Cancelled Eos # (Auto) Cancelled Baso # (Auto) Cancelled Abs Immat Gran (auto) Cancelled Absolute Neuts (auto) Cancelled Absolute Nucleated RBC 0.000 Nucleated RBC % (auto) 0.0 Neutrophils % (Manual) 24 L Band Neutrophils % 0 L Lymphocytes % (Manual) 73 H Monocytes % (Manual) 3 Abs Neuts (Manual) 3.2 Lymphocytes # (Manual) 9.9 H Monocytes # (Manual) 0.4 Smudge Cells PRESENT Platelet Estimate NORMAL Plt Morphology Comment NORMAL RBC Morphology NOTED Hypochromasia 1+ Perla Cells 2+ Smear Tech's Comments Smear Path Review PT INR Sodium 140 Potassium 5.2 H Chloride 106 Carbon Dioxide 27 Anion Gap 12 BUN 15 Creatinine 0.75 Estim Creat Clear Calc 66.5 Estimated GFR > 60 POC Glucose 150 H Random Glucose Fasting Glucose 129 H Calcium 9.3 COVID-19 (NGA) COVID-19 [facility] 06/12/20 06/12/20 06/12/20 11:02 16:08 19:43 WBC RBC Hgb Hct MCV MCH MCHC RDW Plt Count MPV Immature Gran % (Auto) Neut % (Auto) Lymph % (Auto) [place] % (Auto) Eos % (Auto) Baso % (Auto) Lymph # (Auto) [place] # (Auto) Eos # (Auto) Baso # (Auto) Abs Immat Gran (auto) Absolute Neuts (auto) Absolute Nucleated RBC Nucleated RBC % (auto) Neutrophils % (Manual) Band Neutrophils % Lymphocytes % (Manual) Monocytes % (Manual) Abs Neuts (Manual) Lymphocytes # (Manual) Monocytes # (Manual) Smudge Cells Platelet Estimate Plt Morphology Comment RBC Morphology Hypochromasia Breaks Cells Smear Tech's Comments Smear Path Review PT INR Sodium Potassium Chloride Carbon Dioxide Anion Gap BUN Creatinine Estim Creat Clear Calc Estimated GFR POC Glucose 213 H 159 H 190 H Random Glucose Fasting Glucose Calcium COVID-19 (NGA) COVID-[facility] 06/13/20 06/13/20 06/13/20 04:14 07:04 10:30 WBC RBC Hgb Hct MCV MCH MCHC RDW Plt Count MPV Immature Gran % (Auto) Neut % (Auto) Lymph % (Auto) [place] % (Auto) Eos % (Auto) Baso % (Auto) Lymph # (Auto) [place] # (Auto) Eos # (Auto) Baso # (Auto) Abs Immat Gran (auto) Absolute Neuts (auto) Absolute Nucleated RBC Nucleated RBC % (auto) Neutrophils % (Manual) Band Neutrophils % Lymphocytes % (Manual) Monocytes % (Manual) Abs Neuts (Manual) Lymphocytes # (Manual) Monocytes # (Manual) Smudge Cells Platelet Estimate Plt Morphology Comment RBC Morphology Hypochromasia Breaks Cells Smear Tech's Comments Smear Path Review PT INR Sodium 140 Potassium 4.7 Chloride 105 Carbon Dioxide 26 Anion Gap 14 BUN 16 Creatinine 0.78 Estim Creat Clear Calc 63.4 Estimated GFR > 60 POC Glucose 147 H Random Glucose Fasting Glucose 131 H Calcium 9.5 COVID-19 (NGA) Negative COVID-19 [facility] See Note 06/13/20 11:03 WBC RBC Hgb Hct MCV MCH MCHC RDW Plt Count MPV Immature Gran % (Auto) Neut % (Auto) Lymph % (Auto) [place] % (Auto) Eos % (Auto) Baso % (Auto) Lymph # (Auto) [place] # (Auto) Eos # (Auto) Baso # (Auto) Abs Immat Gran (auto) Absolute Neuts (auto) Absolute Nucleated RBC Nucleated RBC % (auto) Neutrophils % (Manual) Band Neutrophils % Lymphocytes % (Manual) Monocytes % (Manual) Abs Neuts (Manual) Lymphocytes # (Manual) Monocytes # (Manual) Smudge Cells Platelet Estimate Plt Morphology Comment RBC Morphology Hypochromasia Breaks Cells Smear Tech's Comments Smear Path Review PT INR Sodium Potassium Chloride Carbon Dioxide Anion Gap BUN Creatinine Estim Creat Clear Calc Estimated GFR POC Glucose 151 H Random Glucose Fasting Glucose Calcium COVID-19 (NGA) COVID-19 Clin Com Airway Mallampati Class: I (Edentulous) TM Dist: >3cm Neck ROM: Full Denture: Upper and Lower Loose/Missing/Broken Teeth: Yes, Upper and Lower Heart: RRR Lungs: CTA Assessment and Plan Assessment Anesthesia Assessment: Anesthesia Plan Discussed and Chart Reviewed Final Anesthetic Review NPO: Yes ASA Class: III Final Preanesthetic Review: Meds/Allgs Chart Reviewed, Consent Obtained/Reviewed and Anes Risks/Benef Reviewed Patient Risk: Intermediate Procedure Risk: Low Anesthetic Plan Anesthetic Plan: GA Disposition: Standard PACU
[2020-06-13 12:27] LABS: Vancomycin Trough 7.3 mcg/mL (10.0-20.0)
[2020-06-13] MEDS: oxyCODONE HCl Immed Release 5 MG TABLET PO ×3 (13:05→21:05)
[2020-06-13] MEDS: fentaNYL citrate/PF 100 MCG/2 ML VIAL 25 MCG IVPUSH ×4 (13:05→13:20)
[2020-06-13] MEDS: Acetaminophen 325 MG TABLET 650 MG PO (13:06)
--- NOTE | 2020-06-13 13:33 | P.OP_ITS ---
Operative Note Operative Note Date of Service: 06/13/20 Narrative: Operative note by [facility] Preoperative diagnosis:1. Left great toe diabetic foot ulcer, 2. peripheral artery disease Postoperative diagnosis: same Procedure: left great toe amputation Surgeon:Aidan Jeff M.D. Manufacturing Teacher: marcus Anesthesia: general Specimens: 1 Drains: none Estimated blood loss: 10 mL Indications: 69-year-old female with nonhealing left great toe ulcer. She had undergone an MRI which had shown fractures and osteomyelitis. In addition she has undergone endovascular intervention as well. She now presents for great toe amputation. The patient has signed the informed consent after reviewing risks, complications, benefits, and alternatives previously discussed with the patient in my office. The patient was given the opportunity to ask any additional questions or voice any concerns. All questions were answered to the patient's satisfaction. Procedure in detail: Patient was taken to the operating room prior to which timeout was called for patient identification site verification left foot was prepped and draped in the standard surgical fashion. A curvilinear fishmouth incision was carried out over the great toe. This was taken down to the metatarsal head. The toe was subsequently amputated. Wound was irrigated out thoroughly. Once this was accomplished deep layer was reapproximated using 2 0 poly Sorb. Once this was accomplished we closed the skin layer with interrupted 3-0 nylon in a mattress fashion skin clips were placed as well. At the end the case sponge instrument counts were correct. Patient tolerated the procedure well. Returned to recovery with stable vitals. This note is constructed using voice recognition software. While every effort has been made to ensure accuracy, nursing program director errors may have been included. Thank you for allowing me to participate in the care of your patient. Yours sincerely, Aidan Jeff MD, FACS, R.P.V.I.
--- NOTE | 2020-06-13 13:33 | MHC.SHP ---
Pre-Procedural Eval Section B Chief Complaint: peripheral vascular disease Allergies: Allergies Allergy/AdvReac Type Severity Reaction Status Date / Time Milk Containing Products Allergy Mild DIARRHEA Verified 06/04/20 13:25 [Milk Products] Plan I have reviewed the history and physical and performed a pertinent physical examination on my patient. No changes have occurred unless specified.
[2020-06-13] MEDS: vancomycin HCL 1,000 MG in 0.9 % Sodium Chloride 250 ML 270 MG IV (14:04)
[2020-06-13 14:53] LABS: Glucose, Whole Blood 138 mg/dL (60-115)
[2020-06-13] MEDS: traMADoL HCL 50 MG TABLET PO ×2 (15:31→22:18)
[2020-06-13] MEDS: Morphine Sulfate 2 MG/ML CARTRIDGE IVPUSH ×2 (16:05→23:28)
[2020-06-13 16:40] LABS: Glucose, Whole Blood 151 mg/dL (60-115)
[2020-06-13] MEDS: Insulin Lispro 100 UNIT/ML 3 ML VIAL SUBCUT ×2 (17:11→21:05)
[2020-06-13 20:51] LABS: Glucose, Whole Blood 167 mg/dL (60-115)
[2020-06-13] MEDS: Atorvastatin Calcium 40 MG TABLET PO (21:06)
[2020-06-14] MEDS: vancomycin HCL 1,000 MG in 0.9 % Sodium Chloride 250 ML 250 MG IV (00:38)
[2020-06-14] MEDS: Heparin Sodium,Porcine 5,000 UNIT/ML VIAL 5000 UNIT SUBCUT ×3 (01:50→18:10)
[2020-06-14 03:00] VITALS: BP 129/60; PULSE 99; RESP 18; TEMP 36.6; O2SAT 98
[2020-06-14] MEDS: oxyCODONE HCl Immed Release 5 MG TABLET PO ×2 (03:20→09:32)
[2020-06-14] MEDS: Piperacillin Sodium/Tazobactam 3.375 GM in 0.9 % Sodium Chloride 50 ML IV ×4 (05:43→23:38)
[2020-06-14] MEDS: Omeprazole 20 MG CAPSULE.DR PO (05:43)
[2020-06-14 06:04] LABS: Basophils Absolute Auto 0.1 X10*3/uL (0.0-0.2); Basophils Percent Auto 0.3 % (0-2); Eosinophils Absolute Auto 0.2 X10*3/uL (0.0-0.4); Eosinophils Percent Auto 1.1 % (0-4); Hematocrit 34.1 % (37-47); Hemoglobin 10.8 g/dl (12.0-16.0); Imm Gran Abs Auto 0.07 X10*3/uL (0.00-0.03); Imm Gran Pct Auto 0.5 % (0.0-0.4); Lymphocytes Percent Auto 56.2 % (20-40); MANUAL DIFF FLAG SCAN; Mean Corpuscular HGB Conc 31.7 g/dl (31.0-35.0); Mean Platelet Volume 10.3 fL (9.4-12.3); Monocytes Absolute Auto 0.8 X10*3/uL (0.1-1.2); Monocytes Percent Auto 5.2 % (2-11); Neutrophils Absolute Auto 5.5 X10*3/uL (2.0-8.3); Neutrophils Percent Auto 36.7 % (45-73); Platelet Count 339 X10*3/uL (160-400); Red Blood Count 4.16 X10*6/uL (4.20-5.50); Red Cell Distribution Width 13.2 % (11.0-16.0); SCAN SMEAR FLAG 1
[2020-06-14 06:29] LABS: Lymphocytes Absolute Auto 8.4 X10*3/uL (1.2-4.9)
[2020-06-14 06:32] LABS: Anion Gap 13 (12-20); Blood Urea Nitrogen 15 mg/dL (9-16); Calcium 9.2 mg/dL (8.4-10.2); Carbon Dioxide 25 mmol/L (22-29); Chloride 103 mmol/L (96-108); Creatinine Clr Calc Pharmacy 69.7; Estimated Glomerular Filt Rate > 60; Glucose Fasting 143 mg/dL (60-99); Potassium 3.9 mmol/L (3.3-5.1); Sodium 137 mmol/L (135-145)
[2020-06-14 06:39] LABS: SLIDE REVIEW VERIFIED
[2020-06-14 07:00] VITALS: BP 117/60; PULSE 100; RESP 20; TEMP 36.3; O2SAT 98
[2020-06-14 07:47] LABS: Glucose, Whole Blood 145 mg/dL (60-115)
[2020-06-14] MEDS: Gabapentin 100 MG CAPSULE PO ×2 (08:15→20:29)
[2020-06-14] MEDS: Aspirin 81 MG TAB.CHEW PO (08:15)
[2020-06-14] MEDS: Clopidogrel Bisulfate 75 MG TABLET PO (08:15)
[2020-06-14] MEDS: 0.9 % Sodium Chloride Flush 3 ML SYRINGE IVFLUSH ×3 (08:16→23:35)
[2020-06-14] MEDS: Morphine Sulfate 2 MG/ML CARTRIDGE IVPUSH ×2 (08:16→23:34)
--- NOTE | 2020-06-14 10:08 | HO.VASCPN ---
Subjective Subjective Date of Service: 06/14/20 Patient reports: feels better and still having pain Interval history: 69-year-old female status post great toe amp. She is postop day 1. She appears to be doing relatively well. She is still having pain control issues. She is for routine follow-up and dressing change. Physical Exam Vital Signs: Vital Signs: Last Vital Signs Temp 97.4 F 06/14/20 07:00 Pulse 100 06/14/20 07:00 Resp 20 06/14/20 07:00 BP 117/60 06/14/20 07:00 Pulse Ox 98 06/14/20 07:00 Body Mass Index 30.0 Const: General: cooperative, healthy appearing and no acute distress Orientation/consciousness: oriented to person, oriented to place and oriented to time HENMT: Head: Yes normal to inspection Neck: Carotids: no bruits Chest: Chest palpation & inspection: normal inspection of the chest Resp: Effort & Inspection: normal respiratory effort and able to speak in complete sentences Auscultation: clear to auscultation bilaterally Cardio: Rate: regular rate Heart sounds: S1 normal heart sound present and S2 normal heart sound present GI: Inspection: Yes normal to inspection Skin: General skin exam: no rashes or lesions noted Wounds: amputation site (Incision healing well) Neuro: General: oriented to person, oriented to place, oriented to time and CN's II-XI intact bilaterally Extrem: General: Yes normal to inspection, Yes full ROM and Yes no clubbing, cyanosis or edema Psych: Appearance: grossly normal and well kempt Speech and movement: Normal speech and movement present Affect: normal affect Progress Note: A&P Assessment and plan (1) PAD (peripheral artery disease): Problem details: 06/13/2020 - left great toe amp Status: Acute Assessment and Plan: Patient doing extremely well status post great toe amp. Incision site appears to be doing well. Pain control seems to be an issue and I did up her OxyContin. In addition she does have still an elevated white count of 15. Will continue antibiotics through the weekend. Will do another dressing change on Wednesday. If stable would anticipate discharge on Wednesday. This was related to the patient and she was in agreement. Would continue antibiotics for now. Fall Risk Details Current Medications: Current Medications Generic Name Dose Route Start Last Admin Trade Name Freq PRN Reason Stop Dose Admin Acetaminophen 650 mg 06/10/20 09:47 Acetaminophen 325 Mg Tablet PO Q6H PRN Pain, Mild (Pain Scale 1-3) Acetaminophen 650 mg 06/13/20 13:25 Acetaminophen 325 Mg Tablet PO Q6H PRN Pain, Mild (Pain Scale 1-3) Albuterol Sulfate 2.5 mg 06/13/20 12:05 Albuterol Sulfate (0.083%) 2.5 Mg/3 Ml Vial.Neb INHALE ONCE PRN Wheezing Aspirin 81 mg 06/11/20 09:00 06/14/20 08:15 Aspirin 81 Mg Tab.Chew PO 81 mg DAILY MARKY Administration Atorvastatin Calcium 40 mg 06/10/20 21:00 06/13/20 21:06 Atorvastatin Calcium 40 Mg Tablet PO 40 mg BEDTIME MARKY Administration Clopidogrel Bisulfate 75 mg 06/11/20 09:00 06/14/20 08:15 Clopidogrel Bisulfate 75 Mg Tablet PO 75 mg DAILY MARKY Administration Gabapentin 100 mg 06/10/20 21:00 06/14/20 08:15 Gabapentin 100 Mg Capsule PO 100 mg BID MARKY Administration Heparin Sodium (Porcine) 5,000 unit 06/10/20 10:00 06/14/20 08:15 Heparin Sodium,Porcine 5,000 Unit/Ml Vial SUBCUT 5,000 unit Q8H MARKY Administration Piperacillin Sod/Tazobactam 50 mls @ 100 mls/hr 06/10/20 18:00 06/14/20 06:15 Sod 3.375 gm/ Sodium Chloride IV Infused Q6H MARKY Infusion Promethazine HCl 6.25 mg/ 50.25 mls @ 201 mls/hr 06/13/20 12:05 Sodium Chloride IV ONCE PRN Nausea and Vomiting Vancomycin HCl 1,000 mg/ 270 mls @ 270 mls/hr 06/13/20 13:00 06/14/20 01:51 Sodium Chloride IV Infused Q12H MARKY Infusion Insulin Human Lispro 0 unit 06/10/20 11:30 06/14/20 08:15 Insulin Lispro 100 Unit/Ml 3 Ml Vial SUBCUT Not Given QIDACHS [facility] Protocol Lisinopril 40 mg 06/11/20 09:00 06/14/20 08:15 Lisinopril 40 Mg Tablet PO 40 mg DAILY MARKY Administration Protocol Morphine Sulfate 2 mg 06/10/20 09:47 06/14/20 08:16 Morphine Sulfate 2 Mg/Ml Cartridge IVPUSH 2 mg Q4H PRN Administration Pain, Severe (Pain Scale 7-10) Morphine Sulfate 2 mg 06/13/20 13:25 06/13/20 16:05 Morphine Sulfate 2 Mg/Ml Cartridge IVPUSH 2 mg Q4H PRN Administration Pain, Severe (Pain Scale 7-10) Omeprazole 20 mg 06/11/20 06:30 06/14/20 05:43 Omeprazole 20 Mg Capsule.Dr PO 20 mg DAILY@0630 MARKY Administration Oxycodone HCl 5 mg 06/10/20 09:47 06/14/20 09:32 Oxycodone Hcl Immed Release 5 Mg Tablet PO 5 mg Q4H PRN Administration Pain, Moderate (Pain Scale 4-6 Oxycodone HCl 5 mg 06/13/20 13:25 Oxycodone Hcl Immed Release 5 Mg Tablet PO Q4H PRN Pain, Moderate (Pain Scale 4-6 Pharmacy Consult 1 each 06/10/20 10:36 Consult Rx Perform Med Rec MISCELLANE ONCE PRN Consult order Pharmacy Consult 1 each 06/10/20 10:40 Consult Rx Vancomycin Dosing MISCELLANE DAILY PRN Consult order Pioglitazone HCl 15 mg 06/11/20 09:00 06/14/20 08:15 Pioglitazone Hcl 15 Mg Tablet PO 15 mg DAILY MAKRY Administration Sodium Chloride 3 ml 06/10/20 16:00 06/14/20 08:16 0.9 % Sodium Chloride Flush 3 Ml Syringe IVFLUSH 3 ml QSHIFT MARKY Administration Tramadol HCl 50 mg 06/10/20 17:53 06/13/20 22:18 Tramadol Hcl 50 Mg Tablet PO 50 mg Q4H PRN Administration Pain, Severe (Pain Scale 7-10) Time Spent With Patient Time: Total time spent is greater than 50% in coordination of care (as documented) at patient's floor/unit and/or counseling patient: Time with patient: 15 - 24 minutes Procedures Date of Service Date of Service: 06/14/20
[2020-06-14 11:00] VITALS: BP 125/70; PULSE 97; RESP 20; TEMP 37.2; O2SAT 93
[2020-06-14] MEDS: traMADoL HCL 50 MG TABLET PO (11:14)
[2020-06-14 11:20] LABS: Glucose, Whole Blood 158 mg/dL (60-115)
[2020-06-14] MEDS: Insulin Lispro 100 UNIT/ML 3 ML VIAL SUBCUT (11:22)
--- NOTE | 2020-06-14 11:43 | HO.PM.IMPN ---
Subjective Subjective Date of Service: 06/14/20 Interval History: pain at surgical site, otherwise doing well Cardiovascular Cardiovascular: Reports no additional cardiovascular complaints Respiratory Respiratory: Reports no additional respiratory complaints Physical Exam Vital Signs: Vital Signs: Last Vital Signs Temp 97.4 F 06/14/20 07:00 Pulse 100 06/14/20 07:00 Resp 20 06/14/20 07:00 BP 117/60 06/14/20 07:00 Pulse Ox 98 06/14/20 07:00 Body Mass Index 30.0 General: AO X 3, no acute distress Resp: CTA bilateral CVS: S1,S2,RRR GI: soft, non tender, non distended Neuro: motor grossly intact Psych: appropriate affect Objective Data Current Medications Generic Name Dose Route Start Last Admin Trade Name Freq PRN Reason Stop Dose Admin Acetaminophen 650 mg 06/10/20 09:47 Acetaminophen 325 Mg Tablet PO Q6H PRN Pain, Mild (Pain Scale 1-3) Acetaminophen 650 mg 06/13/20 13:25 Acetaminophen 325 Mg Tablet PO Q6H PRN Pain, Mild (Pain Scale 1-3) Albuterol Sulfate 2.5 mg 06/13/20 12:05 Albuterol Sulfate (0.083%) 2.5 Mg/3 Ml Vial.Neb INHALE ONCE PRN Wheezing Aspirin 81 mg 06/11/20 09:00 06/14/20 08:15 Aspirin 81 Mg Tab.Chew PO 81 mg DAILY MARKY Administration Atorvastatin Calcium 40 mg 06/10/20 21:00 06/13/20 21:06 Atorvastatin Calcium 40 Mg Tablet PO 40 mg BEDTIME MARKY Administration Clopidogrel Bisulfate 75 mg 06/11/20 09:00 06/14/20 08:15 Clopidogrel Bisulfate 75 Mg Tablet PO 75 mg DAILY MARKY Administration Gabapentin 100 mg 06/10/20 21:00 06/14/20 08:15 Gabapentin 100 Mg Capsule PO 100 mg BID MARKY Administration Heparin Sodium (Porcine) 5,000 unit 06/10/20 10:00 06/14/20 08:15 Heparin Sodium,Porcine 5,000 Unit/Ml Vial SUBCUT 5,000 unit Q8H MARKY Administration Piperacillin Sod/Tazobactam 50 mls @ 100 mls/hr 06/10/20 18:00 06/14/20 11:14 Sod 3.375 gm/ Sodium Chloride IV 100 mls/hr Q6H [facility]Y Administration Promethazine HCl 6.25 mg/ 50.25 mls @ 201 mls/hr 06/13/20 12:05 Sodium Chloride IV ONCE PRN Nausea and Vomiting Vancomycin HCl 1,000 mg/ 270 mls @ 270 mls/hr 06/13/20 13:00 06/14/20 01:51 Sodium Chloride IV Infused Q12H MARKY Infusion Insulin Human Lispro 0 unit 06/10/20 11:30 06/14/20 11:22 Insulin Lispro 100 Unit/Ml 3 Ml Vial SUBCUT 2 unit QIDACHS [facility]Y Administration Protocol Lisinopril 40 mg 06/11/20 09:00 06/14/20 08:15 Lisinopril 40 Mg Tablet PO 40 mg DAILY MARKY Administration Protocol Morphine Sulfate 2 mg 06/10/20 09:47 06/14/20 08:16 Morphine Sulfate 2 Mg/Ml Cartridge IVPUSH 2 mg Q4H PRN Administration Pain, Severe (Pain Scale 7-10) Omeprazole 20 mg 06/11/20 06:30 06/14/20 05:43 Omeprazole 20 Mg Capsule.Dr PO 20 mg DAILY@0630 [facility]Y Administration Oxycodone HCl 5 mg 06/10/20 09:47 06/14/20 09:32 Oxycodone Hcl Immed Release 5 Mg Tablet PO 5 mg Q4H PRN Administration Pain, Moderate (Pain Scale 4-6 Oxycodone HCl 10 mg 06/14/20 10:07 Oxycodone Hcl Immed Release 5 Mg Tablet PO Q4H PRN Pain, Moderate (Pain Scale 4-6 Pharmacy Consult 1 each 06/10/20 10:36 Consult Rx Perform Med Rec MISCELLANE ONCE PRN Consult order Pharmacy Consult 1 each 06/10/20 10:40 Consult Rx Vancomycin Dosing MISCELLANE DAILY PRN Consult order Pioglitazone HCl 15 mg 06/11/20 09:00 06/14/20 08:15 Pioglitazone Hcl 15 Mg Tablet PO 15 mg DAILY MARKY Administration Sodium Chloride 3 ml 06/10/20 16:00 06/14/20 08:16 0.9 % Sodium Chloride Flush 3 Ml Syringe IVFLUSH 3 ml QSHIFT [facility]Y Administration Tramadol HCl 50 mg 06/10/20 17:53 06/14/20 11:14 Tramadol Hcl 50 Mg Tablet PO 50 mg Q4H PRN Administration Pain, Severe (Pain Scale 7-10) Labs CBC & Chem 7: 03/05/21 05:37 06/14/20 05:37 Microbiology Microbiology Results: Microbiology 06/10/20 13:25 Blood - Venous Blood Culture - Preliminary No growth after 48 hours. 06/10/20 13:25 Blood - Venous Blood Culture - Preliminary No growth after 48 hours. Assessment and Plan (1) HTN (hypertension): Status: Acute (2) Diabetes mellitus, type 2: Status: Acute (3) PAD (peripheral artery disease): Problem details: 06/13/2020 - left great toe amp Status: Acute (4) Diabetic foot ulcer: Problem details: in short patient has a left leg diabetic foot ulcer. There is concern over osteomyelitis gram negative ,gram positive Status: Acute Assessment and Plan: 69F status post angiogram and angioplasty of left lower extremity with diabetic foot ulcer of left 1st toe. Admitted for leukocytosis and concern for deep infection. Left 1st toe osteomyelitis POD 1 amputation bcx negative so far continue vanc,zosyn Peripheral vascular disease Status post angioplasty Hypertension Lisinopril Diabetes Insulin peripheral smear with monotonous lymphs, smudge cells concerning for lymphoproliferative disorder follow up outpatient with hematology
[2020-06-14 12:51] LABS: Vancomycin Random 12.3 mcg/mL (15-20)
[2020-06-14] MEDS: oxyCODONE HCl Immed Release 5 MG TABLET 10 MG PO (13:42)
[2020-06-14] MEDS: Acetaminophen 325 MG TABLET 650 MG PO (13:43)
[2020-06-14] MEDS: vancomycin HCL 1,000 MG in 0.9 % Sodium Chloride 250 ML 270 MG IV (13:43)
[2020-06-14 15:00] VITALS: BP 103/50; PULSE 90; RESP 18; TEMP 36.5; O2SAT 95
[2020-06-14 16:24] LABS: Glucose, Whole Blood 149 mg/dL (60-115)
[2020-06-14 19:00] VITALS: BP 102/59; PULSE 91; RESP 18; TEMP 37.1; O2SAT 97
[2020-06-14 20:01] LABS: Glucose, Whole Blood 180 mg/dL (60-115)
[2020-06-14] MEDS: Atorvastatin Calcium 40 MG TABLET PO (20:29)
[2020-06-14 23:00] VITALS: BP 140/64; PULSE 101; RESP 18; TEMP 36.7; O2SAT 97
[2020-06-15] VITALS (8 sets, daily range): BP systolic 104–135; BP diastolic 56–68; PULSE 86–104; RESP 16–18; TEMP 36–37.1; O2SAT 94–98
[2020-06-15] MEDS: oxyCODONE HCl Immed Release 5 MG TABLET 10 MG PO ×4 (00:47→18:25)
[2020-06-15] MEDS: vancomycin HCL 1,000 MG in 0.9 % Sodium Chloride 250 ML 270 MG IV (00:47)
[2020-06-15] MEDS: Heparin Sodium,Porcine 5,000 UNIT/ML VIAL 5000 UNIT SUBCUT ×3 (00:48→18:21)
[2020-06-15] MEDS: Piperacillin Sodium/Tazobactam 3.375 GM in 0.9 % Sodium Chloride 50 ML IV ×3 (06:13→18:21)
[2020-06-15] MEDS: Omeprazole 20 MG CAPSULE.DR PO (06:13)
[2020-06-15 07:17] LABS: Basophils Absolute Auto 0.1 X10*3/uL (0.0-0.2); Basophils Percent Auto 0.3 % (0-2); Eosinophils Absolute Auto 0.2 X10*3/uL (0.0-0.4); Eosinophils Percent Auto 1.4 % (0-4); Hematocrit 33.2 % (37-47); Hemoglobin 10.8 g/dl (12.0-16.0); Imm Gran Abs Auto 0.07 X10*3/uL (0.00-0.03); Imm Gran Pct Auto 0.5 % (0.0-0.4); Lymphocytes Percent Auto 60.1 % (20-40); MANUAL DIFF FLAG SCAN; Mean Corpuscular HGB Conc 32.5 g/dl (31.0-35.0); Mean Corpuscular Hemoglobin 26.7 pg (27.0-33.0); Mean Corpuscular Volume 82.2 fL (80-98); Mean Platelet Volume 10.3 fL (9.4-12.3); Monocytes Absolute Auto 0.7 X10*3/uL (0.1-1.2); Monocytes Percent Auto 4.8 % (2-11); Neutrophils Absolute Auto 4.8 X10*3/uL (2.0-8.3); Neutrophils Percent Auto 32.9 % (45-73); Platelet Count 349 X10*3/uL (160-400); Red Blood Count 4.04 X10*6/uL (4.20-5.50); Red Cell Distribution Width 13.4 % (11.0-16.0); SCAN SMEAR FLAG 1; White Blood Count 14.7 X10*3/uL (4.8-10.8)
[2020-06-15 07:42] LABS: Blood Urea Nitrogen 11 mg/dL (9-16); Calcium 9.6 mg/dL (8.4-10.2); Creatinine Clr Calc Pharmacy 71.7; Estimated Glomerular Filt Rate > 60; Glucose Fasting 127 mg/dL (60-99)
[2020-06-15 07:49] LABS: Glucose, Whole Blood 140 mg/dL (60-115)
[2020-06-15 07:54] LABS: Lymphocytes Absolute Auto 8.8 X10*3/uL (1.2-4.9)
[2020-06-15 08:03] LABS: Anion Gap 12 (12-20); Carbon Dioxide 27 mmol/L (22-29); Chloride 105 mmol/L (96-108); Potassium 4.3 mmol/L (3.3-5.1); Sodium 140 mmol/L (135-145)
[2020-06-15] MEDS: Aspirin 81 MG TAB.CHEW PO (08:23)
[2020-06-15] MEDS: Clopidogrel Bisulfate 75 MG TABLET PO (08:23)
[2020-06-15] MEDS: Gabapentin 100 MG CAPSULE PO ×2 (08:23→20:55)
[2020-06-15] MEDS: 0.9 % Sodium Chloride Flush 3 ML SYRINGE IVFLUSH ×3 (08:24→20:55)
[2020-06-15 08:55] LABS: SLIDE REVIEW VERIFIED
--- NOTE | 2020-06-15 10:13 | HO.PM.IMPN ---
Subjective Subjective Date of Service: 06/15/20 Interval History: feels well Cardiovascular Cardiovascular: Reports no additional cardiovascular complaints Gastrointestinal Gastrointestinal: Reports no additional gastrointestinal complaints Physical Exam Vital Signs: Vital Signs: Last Vital Signs Temp 97.6 F 06/15/20 07:35 Pulse 95 06/15/20 08:22 Resp 18 06/15/20 07:00 BP 107/64 06/15/20 08:22 Pulse Ox 97 06/15/20 07:35 Body Mass Index 30.0 General: AO X 3, no acute distress Resp: CTA bilateral CVS: S1,S2,RRR GI: soft, non tender, non distended Neuro: motor grossly intact Psych: appropriate affect Objective Data Current Medications Generic Name Dose Route Start Last Admin Trade Name Freq PRN Reason Stop Dose Admin Acetaminophen 650 mg 06/10/20 09:47 06/14/20 13:43 Acetaminophen 325 Mg Tablet PO 650 mg Q6H PRN Administration Pain, Mild (Pain Scale 1-3) Acetaminophen 650 mg 06/13/20 13:25 Acetaminophen 325 Mg Tablet PO Q6H PRN Pain, Mild (Pain Scale 1-3) Albuterol Sulfate 2.5 mg 06/13/20 12:05 Albuterol Sulfate (0.083%) 2.5 Mg/3 Ml Vial.Neb INHALE ONCE PRN Wheezing Aspirin 81 mg 06/11/20 09:00 06/15/20 08:23 Aspirin 81 Mg Tab.Chew PO 81 mg DAILY MARKY Administration Atorvastatin Calcium 40 mg 06/10/20 21:00 06/14/20 20:29 Atorvastatin Calcium 40 Mg Tablet PO 40 mg BEDTIME MARKY Administration Clopidogrel Bisulfate 75 mg 06/11/20 09:00 06/15/20 08:23 Clopidogrel Bisulfate 75 Mg Tablet PO 75 mg DAILY MARKY Administration Gabapentin 100 mg 06/10/20 21:00 06/15/20 08:23 Gabapentin 100 Mg Capsule PO 100 mg BID MARKY Administration Heparin Sodium (Porcine) 5,000 unit 06/10/20 10:00 06/15/20 00:48 Heparin Sodium,Porcine 5,000 Unit/Ml Vial SUBCUT 5,000 unit Q8H MARKY Administration Piperacillin Sod/Tazobactam 50 mls @ 100 mls/hr 06/10/20 18:00 06/15/20 06:59 Sod 3.375 gm/ Sodium Chloride IV Infused Q6H MARKY Infusion Promethazine HCl 6.25 mg/ 50.25 mls @ 201 mls/hr 06/13/20 12:05 Sodium Chloride IV ONCE PRN Nausea and Vomiting Vancomycin HCl 1,000 mg/ 270 mls @ 270 mls/hr 06/13/20 13:00 06/15/20 01:57 Sodium Chloride IV Infused Q12H MARKY Infusion Insulin Human Lispro 0 unit 06/10/20 11:30 06/15/20 08:27 Insulin Lispro 100 Unit/Ml 3 Ml Vial SUBCUT Not Given QIDACHS [facility] Protocol Lisinopril 40 mg 06/11/20 09:00 06/15/20 08:22 Lisinopril 40 Mg Tablet PO 40 mg DAILY MARKY Administration Protocol Omeprazole 20 mg 06/11/20 06:30 06/15/20 06:13 Omeprazole 20 Mg Capsule.Dr PO 20 mg DAILY@0630 [facility] Administration Oxycodone HCl 10 mg 06/14/20 10:07 06/15/20 06:14 Oxycodone Hcl Immed Release 5 Mg Tablet PO 10 mg Q4H PRN Administration Pain, Moderate (Pain Scale 4-6 Pharmacy Consult 1 each 06/10/20 10:36 Consult Rx Perform Med Rec MISCELLANE ONCE PRN Consult order Pharmacy Consult 1 each 06/10/20 10:40 Consult Rx Vancomycin Dosing MISCELLANE DAILY PRN Consult order Pioglitazone HCl 15 mg 06/11/20 09:00 06/15/20 08:22 Pioglitazone Hcl 15 Mg Tablet PO 15 mg DAILY MARKY Administration Sodium Chloride 3 ml 06/10/20 16:00 06/15/20 08:24 0.9 % Sodium Chloride Flush 3 Ml Syringe IVFLUSH 3 ml QSHIFT [facility] Administration Tramadol HCl 50 mg 06/10/20 17:53 06/14/20 11:14 Tramadol Hcl 50 Mg Tablet PO 50 mg Q4H PRN Administration Pain, Severe (Pain Scale 7-10) Labs CBC & Chem 7: 06/15/20 06:04 06/15/20 06:04 Microbiology Microbiology Results: Microbiology 06/10/20 13:25 Blood - Venous Blood Culture - Preliminary No growth after 48 hours. 06/10/20 13:25 Blood - Venous Blood Culture - Preliminary No growth after 48 hours. Assessment and Plan (1) HTN (hypertension): Status: Acute (2) Diabetes mellitus, type 2: Status: Acute (3) PAD (peripheral artery disease): Status: Acute (4) Diabetic foot ulcer: Status: Acute Assessment and Plan: 69F status post angiogram and angioplasty of left lower extremity with diabetic foot ulcer of left 1st toe. Admitted for leukocytosis and concern for deep infection. Left 1st toe osteomyelitis POD 2 amputation 06/13/2020 bcx negative continue vanc,zosyn, on dc will do 10 days augmentin/doxy Peripheral vascular disease Status post angioplasty Hypertension Lisinopril Diabetes Insulin peripheral smear with monotonous lymphs, smudge cells concerning for lymphoproliferative disorder follow up outpatient with hematology
[2020-06-15] MEDS: traMADoL HCL 50 MG TABLET PO ×3 (10:28→21:29)
[2020-06-15 11:26] LABS: Glucose, Whole Blood 193 mg/dL (60-115)
[2020-06-15] MEDS: Insulin Lispro 100 UNIT/ML 3 ML VIAL SUBCUT (11:57)
[2020-06-15] MEDS: vancomycin HCL 1,000 MG in 0.9 % Sodium Chloride 250 ML 250 MG IV (12:54)
[2020-06-15] MEDS: Acetaminophen 325 MG TABLET 650 MG PO (13:39)
[2020-06-15 16:24] LABS: Glucose, Whole Blood 116 mg/dL (60-115)
[2020-06-15 20:45] LABS: Glucose, Whole Blood 187 mg/dL (60-115)
[2020-06-15] MEDS: Atorvastatin Calcium 40 MG TABLET PO (20:55)
[2020-06-16] MEDS: Piperacillin Sodium/Tazobactam 3.375 GM in 0.9 % Sodium Chloride 50 ML IV ×4 (00:26→17:21)
[2020-06-16 00:59] LABS: Vancomycin Trough 15.8 mcg/mL (10.0-20.0)
[2020-06-16] MEDS: vancomycin HCL 1,000 MG in 0.9 % Sodium Chloride 250 ML 250 MG IV ×2 (01:12→12:30)
[2020-06-16] MEDS: Heparin Sodium,Porcine 5,000 UNIT/ML VIAL 5000 UNIT SUBCUT ×3 (01:15→17:21)
[2020-06-16] MEDS: oxyCODONE HCl Immed Release 5 MG TABLET 10 MG PO ×2 (01:15→21:32)
[2020-06-16 03:31] VITALS: BP 115/52; PULSE 91; RESP 18; TEMP 36.9; O2SAT 97
[2020-06-16 05:00] VITALS: BMI 31.1
[2020-06-16] MEDS: Omeprazole 20 MG CAPSULE.DR PO (05:59)
[2020-06-16 07:17] VITALS: BP 103/63; PULSE 91; RESP 20; TEMP 36.9; O2SAT 98
[2020-06-16 07:33] LABS: Glucose, Whole Blood 136 mg/dL (60-115)
[2020-06-16] MEDS: Aspirin 81 MG TAB.CHEW PO (08:08)
[2020-06-16] MEDS: Gabapentin 100 MG CAPSULE PO ×2 (08:08→20:34)
[2020-06-16] MEDS: Clopidogrel Bisulfate 75 MG TABLET PO (08:08)
[2020-06-16] MEDS: 0.9 % Sodium Chloride Flush 3 ML SYRINGE IVFLUSH ×2 (08:09→17:21)
[2020-06-16 08:11] VITALS: BP 103/63; PULSE 91
--- NOTE | 2020-06-16 10:52 | P.PNIM_ITS ---
Subjective Subjective Date of Service: 06/16/20 Interval History: no complaints Cardiovascular Cardiovascular: Reports no additional cardiovascular complaints Gastrointestinal Gastrointestinal: Reports no additional gastrointestinal complaints Physical Exam Vital Signs: Vital Signs: Last Vital Signs Temp 98.5 F 06/16/20 07:17 Pulse 91 06/16/20 08:11 Resp 20 06/16/20 07:17 BP 103/63 06/16/20 08:11 Pulse Ox 98 06/16/20 07:17 Body Mass Index 31.1 General: AO X 3, no acute distress Resp: CTA bilateral CVS: S1,S2,RRR GI: soft, non tender, non distended Neuro: motor grossly intact Psych: appropriate affect Objective Data Current Medications Generic Name Dose Route Start Last Admin Trade Name Freq PRN Reason Stop Dose Admin Acetaminophen 650 mg 06/10/20 09:47 06/15/20 13:39 Acetaminophen 325 Mg Tablet PO 650 mg Q6H PRN Administration Pain, Mild (Pain Scale 1-3) Acetaminophen 650 mg 06/13/20 13:25 Acetaminophen 325 Mg Tablet PO Q6H PRN Pain, Mild (Pain Scale 1-3) Albuterol Sulfate 2.5 mg 06/13/20 12:05 Albuterol Sulfate (0.083%) 2.5 Mg/3 Ml Vial.Neb INHALE ONCE PRN Wheezing Aspirin 81 mg 06/11/20 09:00 06/16/20 08:08 Aspirin 81 Mg Tab.Chew PO 81 mg DAILY MARKY Administration Atorvastatin Calcium 40 mg 06/10/20 21:00 06/15/20 20:55 Atorvastatin Calcium 40 Mg Tablet PO 40 mg BEDTIME MARKY Administration Clopidogrel Bisulfate 75 mg 06/11/20 09:00 06/16/20 08:08 Clopidogrel Bisulfate 75 Mg Tablet PO 75 mg DAILY MARKY Administration Gabapentin 100 mg 06/10/20 21:00 06/16/20 08:08 Gabapentin 100 Mg Capsule PO 100 mg BID MARKY Administration Heparin Sodium (Porcine) 5,000 unit 06/10/20 10:00 06/16/20 10:48 Heparin Sodium,Porcine 5,000 Unit/Ml Vial SUBCUT 5,000 unit Q8H MARKY Administration Piperacillin Sod/Tazobactam 50 mls @ 100 mls/hr 06/10/20 18:00 06/16/20 06:35 Sod 3.375 gm/ Sodium Chloride IV Infused Q6H MARKY Infusion Promethazine HCl 6.25 mg/ 50.25 mls @ 201 mls/hr 06/13/20 12:05 Sodium Chloride IV ONCE PRN Nausea and Vomiting Vancomycin HCl 1,000 mg/ 270 mls @ 270 mls/hr 06/13/20 13:00 06/16/20 02:22 Sodium Chloride IV Infused Q12H MARKY Infusion Insulin Human Lispro 0 unit 06/10/20 11:30 06/16/20 07:58 Insulin Lispro 100 Unit/Ml 3 Ml Vial SUBCUT Not Given QIDACHS [facility] Protocol Lisinopril 40 mg 06/11/20 09:00 06/16/20 08:11 Lisinopril 40 Mg Tablet PO 40 mg DAILY MARKY Administration Protocol Omeprazole 20 mg 06/11/20 06:30 06/16/20 05:59 Omeprazole 20 Mg Capsule.Dr PO 20 mg DAILY@0630 [facility] Administration Oxycodone HCl 10 mg 06/14/20 10:07 06/16/20 01:15 Oxycodone Hcl Immed Release 5 Mg Tablet PO 10 mg Q4H PRN Administration Pain, Moderate (Pain Scale 4-6 Pharmacy Consult 1 each 06/10/20 10:36 Consult Rx Perform Med Rec MISCELLANE ONCE PRN Consult order Pharmacy Consult 1 each 06/10/20 10:40 Consult Rx Vancomycin Dosing MISCELLANE DAILY PRN Consult order Pioglitazone HCl 15 mg 06/11/20 09:00 06/16/20 08:08 Pioglitazone Hcl 15 Mg Tablet PO 15 mg DAILY MARKY Administration Sodium Chloride 3 ml 06/10/20 16:00 06/16/20 08:09 0.9 % Sodium Chloride Flush 3 Ml Syringe IVFLUSH 3 ml QSHIFT [facility] Administration Tramadol HCl 50 mg 06/15/20 21:03 06/15/20 21:29 Tramadol Hcl 50 Mg Tablet PO 50 mg Q6H PRN Administration Breakthrough Pain Labs CBC & Chem 7: 06/15/20 06:04 06/15/20 06:04 Microbiology Microbiology Results: Microbiology 06/10/20 13:25 Blood - Venous Blood Culture - Final No growth after 5 days. 06/10/20 13:25 Blood - Venous Blood Culture - Final No growth after 5 days. Assessment and Plan (1) HTN (hypertension): Status: Acute (2) Diabetes mellitus, type 2: Status: Acute (3) PAD (peripheral artery disease): Status: Acute (4) Diabetic foot ulcer: Status: Acute Assessment and Plan: 69F status post angiogram and angioplasty of left lower extremity with diabetic foot ulcer of left 1st toe. Admitted for leukocytosis and concern for deep infection. Left 1st toe osteomyelitis POD 3 amputation 06/13/2020 bcx negative follow up path continue vanc,zosyn, on dc will do 10 days augmentin/doxy Peripheral vascular disease Status post angioplasty Hypertension Lisinopril Diabetes Insulin peripheral smear with monotonous lymphs, smudge cells concerning for lymphoproliferative disorder follow up outpatient with hematology
[2020-06-16 11:15] LABS: Glucose, Whole Blood 149 mg/dL (60-115)
[2020-06-16 11:36] VITALS: BP 123/63; PULSE 84; RESP 18; TEMP 36.2; O2SAT 98
[2020-06-16 15:29] VITALS: BP 122/66; PULSE 91; TEMP 36; O2SAT 97
[2020-06-16 16:03] LABS: Glucose, Whole Blood 207 mg/dL (60-115)
[2020-06-16] MEDS: Insulin Lispro 100 UNIT/ML 3 ML VIAL SUBCUT ×2 (16:26→21:33)
[2020-06-16 19:13] VITALS: BP 120/66; PULSE 95; RESP 18; TEMP 36.2; O2SAT 98
[2020-06-16] MEDS: Atorvastatin Calcium 40 MG TABLET PO (20:34)
[2020-06-16 21:30] LABS: Glucose, Whole Blood 220 mg/dL (60-115)
[2020-06-17] VITALS: BP 166/74; PULSE 102; RESP 20; TEMP 36.2; O2SAT 99
[2020-06-17] MEDS: Piperacillin Sodium/Tazobactam 3.375 GM in 0.9 % Sodium Chloride 50 ML IV ×2 (00:37→06:15)
[2020-06-17] MEDS: vancomycin HCL 1,000 MG in 0.9 % Sodium Chloride 250 ML 240 MG IV (01:51)
[2020-06-17 03:57] VITALS: BP 132/60; PULSE 92; RESP 18; TEMP 36.6; O2SAT 98
[2020-06-17] MEDS: Omeprazole 20 MG CAPSULE.DR PO (06:15)
[2020-06-17 06:44] LABS: Basophils Percent Auto 0.3 % (0-2); Eosinophils Absolute Auto 0.3 X10*3/uL (0.0-0.4); Eosinophils Percent Auto 1.8 % (0-4); Hematocrit 32.7 % (37-47); Hemoglobin 10.4 g/dl (12.0-16.0); Imm Gran Abs Auto 0.09 X10*3/uL (0.00-0.03); Imm Gran Pct Auto 0.6 % (0.0-0.4); Lymphocytes Percent Auto 57.8 % (20-40); MANUAL DIFF FLAG SCAN; Mean Corpuscular HGB Conc 31.8 g/dl (31.0-35.0); Mean Corpuscular Hemoglobin 26.5 pg (27.0-33.0); Mean Corpuscular Volume 83.2 fL (80-98); Mean Platelet Volume 10.4 fL (9.4-12.3); Monocytes Absolute Auto 0.7 X10*3/uL (0.1-1.2); Monocytes Percent Auto 5.1 % (2-11); Neutrophils Absolute Auto 4.9 X10*3/uL (2.0-8.3); Neutrophils Percent Auto 34.4 % (45-73); Platelet Count 351 X10*3/uL (160-400); Red Blood Count 3.93 X10*6/uL (4.20-5.50); Red Cell Distribution Width 13.7 % (11.0-16.0); SCAN SMEAR FLAG 1; White Blood Count 14.3 X10*3/uL (4.8-10.8)
[2020-06-17 06:53] LABS: Blood Urea Nitrogen 13 mg/dL (9-16); Calcium 9.2 mg/dL (8.4-10.2); Estimated Glomerular Filt Rate > 60; Glucose Fasting 171 mg/dL (60-99)
[2020-06-17 07:07] LABS: Anion Gap 13 (12-20); Carbon Dioxide 25 mmol/L (22-29); Chloride 104 mmol/L (96-108); Sodium 138 mmol/L (135-145)
[2020-06-17 07:11] LABS: Lymphocytes Absolute Auto 8.3 X10*3/uL (1.2-4.9)
[2020-06-17 07:35] LABS: SLIDE REVIEW VERIFIED
[2020-06-17 07:52] LABS: Glucose, Whole Blood 147 mg/dL (60-115)
[2020-06-17 08:00] VITALS: BP 140/67; PULSE 109; RESP 20; TEMP 36.3; O2SAT 98
[2020-06-17] MEDS: Aspirin 81 MG TAB.CHEW PO (09:28)
[2020-06-17] MEDS: Gabapentin 100 MG CAPSULE PO (09:28)
[2020-06-17] MEDS: Clopidogrel Bisulfate 75 MG TABLET PO (09:28)
[2020-06-17] MEDS: Heparin Sodium,Porcine 5,000 UNIT/ML VIAL 5000 UNIT SUBCUT (09:29)
[2020-06-17] MEDS: 0.9 % Sodium Chloride Flush 3 ML SYRINGE IVFLUSH (09:29)
--- NOTE | 2020-06-17 10:17 | HO.POSTANES ---
Post Anesthesia Evaluation Post Anesthesia Evaluation Vital Signs: Vital Signs Temp Pulse Resp BP Pulse Ox 06/17/20 08:00 97.4 F 109 H 20 140/67 H 98 06/17/20 03:57 98 F 92 18 132/60 98 06/17/20 00:00 97.2 F 102 H 20 166/74 H 99 Patient was seen on 06/14/20 at 715am on paper chart Anesthesia: General Mental Status: Awake Pain Control: Satisfactory Nausea/Vomiting: None Hydration: Adequate Anesthesia-Related Issues: No Anes. Related Issues
--- NOTE | 2020-06-17 10:27 | P.PNIM_ITS ---
Subjective Subjective Date of Service: 06/17/20 Interval History: feels well Cardiovascular Cardiovascular: Reports no additional cardiovascular complaints Genitourinary Genitourinary: Reports no additional female genitourinary complaints Physical Exam Vital Signs: Vital Signs: Last Vital Signs Temp 97.4 F 06/17/20 08:00 Pulse 109 H 06/17/20 08:00 Resp 20 06/17/20 08:00 BP 140/67 H 06/17/20 08:00 Pulse Ox 98 06/17/20 08:00 Body Mass Index 31.1 General: AO X 3, no acute distress Resp: CTA bilateral CVS: S1,S2,RRR GI: soft, non tender, non distended Neuro: motor grossly intact Psych: appropriate affect Objective Data Current Medications Generic Name Dose Route Start Last Admin Trade Name Freq PRN Reason Stop Dose Admin Acetaminophen 650 mg 06/10/20 09:47 06/15/20 13:39 Acetaminophen 325 Mg Tablet PO 650 mg Q6H PRN Administration Pain, Mild (Pain Scale 1-3) Acetaminophen 650 mg 06/13/20 13:25 Acetaminophen 325 Mg Tablet PO Q6H PRN Pain, Mild (Pain Scale 1-3) Albuterol Sulfate 2.5 mg 06/13/20 12:05 Albuterol Sulfate (0.083%) 2.5 Mg/3 Ml Vial.Neb INHALE ONCE PRN Wheezing Aspirin 81 mg 06/11/20 09:00 06/17/20 09:28 Aspirin 81 Mg Tab.Chew PO 81 mg DAILY MARKY Administration Atorvastatin Calcium 40 mg 06/10/20 21:00 06/16/20 20:34 Atorvastatin Calcium 40 Mg Tablet PO 40 mg BEDTIME MARKY Administration Clopidogrel Bisulfate 75 mg 06/11/20 09:00 06/17/20 09:28 Clopidogrel Bisulfate 75 Mg Tablet PO 75 mg DAILY MARKY Administration Gabapentin 100 mg 06/10/20 21:00 06/17/20 09:28 Gabapentin 100 Mg Capsule PO 100 mg BID MARKY Administration Heparin Sodium (Porcine) 5,000 unit 06/10/20 10:00 06/17/20 09:29 Heparin Sodium,Porcine 5,000 Unit/Ml Vial SUBCUT 5,000 unit Q8H MARKY Administration Piperacillin Sod/Tazobactam 50 mls @ 100 mls/hr 06/10/20 18:00 06/17/20 08:04 Sod 3.375 gm/ Sodium Chloride IV Infused Q6H [facility]Y Infusion Promethazine HCl 6.25 mg/ 50.25 mls @ 201 mls/hr 06/13/20 12:05 Sodium Chloride IV ONCE PRN Nausea and Vomiting Vancomycin HCl 1,000 mg/ 270 mls @ 270 mls/hr 06/13/20 13:00 06/17/20 03:10 Sodium Chloride IV Infused Q12H MARKY Infusion Insulin Human Lispro 0 unit 06/10/20 11:30 06/17/20 09:29 Insulin Lispro 100 Unit/Ml 3 Ml Vial SUBCUT Not Given QIDACHS [facility] Protocol Lisinopril 40 mg 06/11/20 09:00 06/17/20 09:28 Lisinopril 40 Mg Tablet PO 40 mg DAILY MARKY Administration Protocol Omeprazole 20 mg 06/11/20 06:30 06/17/20 06:15 Omeprazole 20 Mg Capsule.Dr PO 20 mg DAILY@0630 [facility] Administration Oxycodone HCl 10 mg 06/14/20 10:07 06/16/20 21:32 Oxycodone Hcl Immed Release 5 Mg Tablet PO 10 mg Q4H PRN Administration Pain, Moderate (Pain Scale 4-6 Pharmacy Consult 1 each 06/10/20 10:36 Consult Rx Perform Med Rec MISCELLANE ONCE PRN Consult order Pharmacy Consult 1 each 06/10/20 10:40 Consult Rx Vancomycin Dosing MISCELLANE DAILY PRN Consult order Pioglitazone HCl 15 mg 06/11/20 09:00 06/17/20 09:28 Pioglitazone Hcl 15 Mg Tablet PO 15 mg DAILY MARKY Administration Sodium Chloride 3 ml 06/10/20 16:00 06/17/20 09:29 0.9 % Sodium Chloride Flush 3 Ml Syringe IVFLUSH 3 ml QSHIFT [facility] Administration Tramadol HCl 50 mg 06/15/20 21:03 06/15/20 21:29 Tramadol Hcl 50 Mg Tablet PO 50 mg Q6H PRN Administration [facility] Labs CBC & Chem 7: 06/17/20 05:32 06/17/20 05:32 Microbiology Microbiology Results: Microbiology 06/10/20 13:25 Blood - Venous Blood Culture - Final No growth after 5 days. 06/10/20 13:25 Blood - Venous Blood Culture - Final No growth after 5 days. Assessment and Plan (1) HTN (hypertension): Status: Acute (2) Diabetes mellitus, type 2: Status: Acute (3) PAD (peripheral artery disease): Status: Acute (4) Diabetic foot ulcer: Status: Acute Assessment and Plan: 69F status post angiogram and angioplasty of left lower extremity with diabetic foot ulcer of left 1st toe. Admitted for leukocytosis and concern for deep infection. Left 1st toe osteomyelitis POD 4 amputation 06/13/2020 bcx negative follow up path on dc will do 10 days augmentin/doxy Peripheral vascular disease Status post angioplasty Hypertension Lisinopril Diabetes Insulin peripheral smear with monotonous lymphs, smudge cells concerning for lymphoproliferative disorder follow up outpatient with hematology leukocytosis could be reactive from surgery, but can be related to above as well
--- NOTE | 2020-06-17 10:50 | MHC.CM.PN ---
Per MD, Patient will be medically cleared for dc to home today, with [facility]. A referral had been made to [facility], who has been notified of today's dc. Second IMM addressed with Patient and the original was given to her and a copy has been placed on the chart.
[2020-06-17 11:11] LABS: Glucose, Whole Blood 151 mg/dL (60-115)
--- NOTE | 2020-06-17 11:18 | P.DS_ITS ---
DS: Providers Provider Date of Service: 06/17/20 Date of admission: 06/10/20 09:48 Primary care physician: Sally Gonzalez NP Consults: 06/10/20 09:47 Consult to Hospitalist Routine Consulting Provider: Hospitalist Reason For Exam: med management - leg infection 06/10/20 10:40 Consult to Infectious Diseases Routine Consulting Provider: Wen Marina Reason for consultation: DFU DS: Diagnosis Discharge Diagnosis (1) HTN (hypertension): Status: Acute (2) Diabetes mellitus, type 2: Status: Acute (3) PAD (peripheral artery disease): Status: Acute Problem details: Patient underwent endovascular intervention. Did well postprocedure. Will need to be maintained on aspirin and Plavix for total of 6 months in duration. (4) Diabetic foot ulcer: Status: Acute Problem details: Patient underwent amputation. Will need to follow-up with me in 2 weeks time for suture removal. DS: Medications Discharge Medications Home Medications: Home Medications Medication Instructions Recorded Confirmed Jardiance 10 mg PO DAILY 06/10/20 06/10/20 atorvastatin 40 mg PO BEDTIME 06/10/20 06/10/20 gabapentin 100 mg PO BID 06/10/20 06/10/20 glipizide 10 mg PO DAILY 06/10/20 06/10/20 lisinopril 40 mg PO DAILY 06/10/20 06/10/20 pantoprazole 40 mg PO DAILY@0630 06/10/20 06/10/20 pioglitazone 15 mg PO DAILY 06/10/20 06/10/20 Previous Rx's Medication Instructions Recorded amoxicillin-pot clavulanate 1 tab PO Q12H #20 tab 06/17/20 [Augmentin] aspirin 81 mg PO DAILY #30 tab 06/17/20 clopidogrel 75 mg PO DAILY #30 tab 06/17/20 doxycycline hyclate 100 mg PO BID #20 tab 06/17/20 oxycodone-acetaminophen [Percocet] 1 tab PO Q6H PRN #14 tab 06/17/20 DS: Summary Time Spent with Patient Time attestation: Total time spent providing and/or coordinating discharge services: Discharge coordination time: Greater than 30 minutes Physical Exam Vital Signs: Vital Signs: Last Vital Signs Temp 97.4 F 06/17/20 08:00 Pulse 109 H 06/17/20 08:00 Resp 20 06/17/20 08:00 BP 140/67 H 06/17/20 08:00 Pulse Ox 98 06/17/20 08:00 Body Mass Index 31.1 Const: General: cooperative, healthy appearing and no acute distress Orientation/consciousness: oriented to person, oriented to place and oriented to time HENMT: Head: Yes normal to inspection Neck: Carotids: no bruits Chest: Chest palpation & inspection: normal inspection of the chest Resp: Effort & Inspection: normal respiratory effort and able to speak in complete sentences Auscultation: clear to auscultation bilaterally Cardio: Rate: regular rate Heart sounds: S1 normal heart sound present and S2 normal heart sound present GI: Inspection: Yes normal to inspection Skin: General skin exam: no rashes or lesions noted Wounds: amputation site (Healing well) Neuro: General: oriented to person, oriented to place, oriented to time and CN's II-XI intact bilaterally Extrem: General: Yes normal to inspection, Yes full ROM and Yes no clubbing, cyanosis or edema Psych: Appearance: grossly normal and well kempt Speech and movement: Normal speech and movement present Affect: normal affect DS: Data Data Completed and Pending Pending studies at discharge: Pending at discharge 06/13/20 12:59 Surgical [PTH] Routine Labs on day of discharge: Laboratory Results - last 24 hr 06/16/20 06/16/20 06/17/20 15:55 21:27 05:32 WBC 14.3 H RBC 3.93 L Hgb 10.4 L Hct 32.7 L MCV 83.2 MCH 26.5 L MCHC 31.8 RDW 13.7 Plt Count 351 MPV 10.4 Immature Gran % (Auto) 0.6 H Neut % (Auto) 34.4 L Lymph % (Auto) 57.8 H [place] % (Auto) 5.1 Eos % (Auto) 1.8 Baso % (Auto) 0.3 Lymph # (Auto) 8.3 H [place] # (Auto) 0.7 Eos # (Auto) 0.3 Baso # (Auto) 0.0 Abs Immat Gran (auto) 0.09 H Absolute Neuts (auto) 4.9 Absolute Nucleated RBC 0.000 Nucleated RBC % (auto) 0.0 Smear Tech's Comments VERIFIED Sodium Potassium Chloride Carbon Dioxide Anion Gap BUN Creatinine Estim Creat Clear Calc Estimated GFR POC Glucose 207 H 220 H Fasting Glucose Calcium 06/17/20 06/17/20 06/17/20 05:32 07:45 11:01 WBC RBC Hgb Hct MCV MCH MCHC RDW Plt Count MPV Immature Gran % (Auto) Neut % (Auto) Lymph % (Auto) [place] % (Auto) Eos % (Auto) Baso % (Auto) Lymph # (Auto) [place] # (Auto) Eos # (Auto) Baso # (Auto) Abs Immat Gran (auto) Absolute Neuts (auto) Absolute Nucleated RBC Nucleated RBC % (auto) Smear Tech's Comments Sodium 138 Potassium 4.0 Chloride 104 Carbon Dioxide 25 Anion Gap 13 BUN 13 Creatinine 0.71 Estim Creat Clear Calc 71.0 Estimated GFR > 60 POC Glucose 147 H 151 H Fasting Glucose 171 H Calcium 9.2 Discharge Plan Discharge Patient Disposition: Home Health Service Referrals: [facility] [Outside] Sally Gonzalez NP [Primary Care Provider] - Sherry Smith MD [Physician] - 1 Month ( White blood cells are mildly increased in number. Small monotonous appearing lymphocytes with scant cytoplasm and coarse chromatin are seen along with occas ional smudge cells. The findings raise the possibility of a lymphoproliferative disorder. Recommend flow cytometry for further characterization, as clinically appropriate. - Sanya Campbell M.D. Pathology) Discharge Medications: New clopidogrel 75 mg Tablet 75 mg PO DAILY Qty: 30 RF: 0 aspirin 81 mg Tablet,Chewable 81 mg PO DAILY Qty: 30 RF: 0 amoxicillin-pot clavulanate [Augmentin] 875-125 mg tablet 1 tab PO Q12H Qty: 20 RF: 0 doxycycline hyclate 100 mg tablet 100 mg PO BID Qty: 20 RF: 0 oxycodone-acetaminophen [Percocet] 5-325 mg tablet 1 tab PO Q6H PRN (Reason: pain) Qty: 14 RF: 0 Continued pioglitazone 15 mg Tablet 15 mg PO DAILY RF: 0 atorvastatin 40 mg Tablet 40 mg PO BEDTIME RF: 0 glipizide 10 mg Tablet Extended Release 24hr 10 mg PO DAILY RF: 0 pantoprazole 40 mg Tablet,Delayed Release (Dr/Ec) 40 mg PO DAILY@0630 RF: 0 gabapentin 100 mg Capsule 100 mg PO BID RF: 0 lisinopril 40 mg Tablet 40 mg PO DAILY RF: 0 Jardiance 10 mg Tablet 10 mg PO DAILY RF: 0 Discharge Orders: Discharge Order (Routine); Ordered 06/17/20 Ordered By: Aidan Jeff Diet: advance to usual diet Activity on Discharge: As tolerated Stand Alone Forms: Patient Portal Discharge page Care Plan Goals: heal wounds Health Concerns: diabetic ulcers Plan of Treatment: continue local wound care surveilence of PAD
[2020-06-17 11:29] VITALS: BP 123/69; PULSE 86; RESP 18; TEMP 36.8; O2SAT 99
== END 2020-06-17 14:38 | disposition home health service (06) | DRG 271 ==
LOC: HO.SSSA 10:07 → HO.IMC 10:31
PROVIDERS: Internal Medicine; Admitting Provider Surgery Vascular Surgery; PCP Nurse Practitioner Family; Visit Provider Surgery Vascular Surgery
PROC: 04CL3ZZ Extirpation of Matter from Left Femoral Artery, Percutaneous Approach (ICD-10-PCS; principal; 2020-06-10 07:30)
PROC: 0Y6Q0Z0 Detachment at Left 1st Toe, Complete, Open Approach (ICD-10-PCS; principal; 2020-06-13 12:00)
DX: E11.51 Type 2 diabetes mellitus with diabetic peripheral angiopathy without gangrene (principal); L97.829 Non-pressure chronic ulcer of other part of left lower leg with unspecified severity; M86.9 Osteomyelitis, unspecified; I70.248 Atherosclerosis of native arteries of left leg with ulceration of other part of lower leg; E11.621 Type 2 diabetes mellitus with foot ulcer; E11.69 Type 2 diabetes mellitus with other specified complication; L97.529 Non-pressure chronic ulcer of other part of left foot with unspecified severity; Z20.822 Contact with and (suspected) exposure to COVID-19; Z79.02 Long term (current) use of antithrombotics/antiplatelets; Z79.82 Long term (current) use of aspirin; Z79.899 Other long term (current) drug therapy
CPT/HCPCS: 36253; 36415; 37224; 37228; 73720; 76942; 80048; 80051; 80202; 82565; 82947; 85007; 85025; 85027; 85060; 85610; 87040; 87635; 88305; 88311; 99152; 99153; A9585; C1714; C1725; C1760; C1769; C1887; J2250; J2270; J2543; J3010; J3370; Q9967

== ENCOUNTER → 2020-06-25 15:19 | Outpatient (BNVA) | payer MEDICARE, SELFPAY | PROVIDERS: PCP Nurse Practitioner Family; Visit Provider Surgery Vascular Surgery | DX: I73.9 Peripheral vascular disease, unspecified (principal) | CPT/HCPCS: 99212 ==

== ENCOUNTER → 2020-07-09 15:13 | Outpatient (BNVA) | payer MEDICARE, SELFPAY | PROVIDERS: PCP Nurse Practitioner Family; Visit Provider Surgery Vascular Surgery | DX: Z47.81 Encounter for orthopedic aftercare following surgical amputation (principal); I73.9 Peripheral vascular disease, unspecified | CPT/HCPCS: 99212 ==

== ENCOUNTER → 2020-07-26 15:13 | Outpatient (BNVA) | payer MEDICARE, SELFPAY | PROVIDERS: PCP Nurse Practitioner Family; Visit Provider Surgery Vascular Surgery | DX: I73.9 Peripheral vascular disease, unspecified (principal) | CPT/HCPCS: 99212 ==

== ENCOUNTER → 2020-08-06 14:31 | Outpatient (BNVA) | payer MEDICARE, SELFPAY | PROVIDERS: PCP Nurse Practitioner Family; Visit Provider Surgery Vascular Surgery | DX: I73.9 Peripheral vascular disease, unspecified (principal) | CPT/HCPCS: 99212 ==

== ENCOUNTER → 2020-08-27 15:12 | Outpatient (BNVA) | payer MEDICARE, SELFPAY | PROVIDERS: PCP Nurse Practitioner Family; Visit Provider Surgery Vascular Surgery | DX: I73.9 Peripheral vascular disease, unspecified (principal) | CPT/HCPCS: 99212 ==

== ENCOUNTER → 2020-09-10 14:48 | Outpatient (BNVA) | payer MEDICARE, SELFPAY | PROVIDERS: PCP Nurse Practitioner Family; Visit Provider Surgery Vascular Surgery | DX: I73.9 Peripheral vascular disease, unspecified (principal) | CPT/HCPCS: 99212 ==

== ENCOUNTER → 2020-10-01 14:40 | Outpatient (BNVA) | payer MEDICARE, SELFPAY | PROVIDERS: PCP Nurse Practitioner Family; Visit Provider Surgery Vascular Surgery | DX: I73.9 Peripheral vascular disease, unspecified (principal) | CPT/HCPCS: 99212 ==

== ENCOUNTER 2020-10-29 08:08 | Outpatient (REF) | payer MEDICARE, SELFPAY ==
--- NOTE | ~2020-10-29 | US_ITS ---
EXAMINATION: COLOR-FLOW DUPLEX IMAGING OF THE BILATERAL LOWER EXTREMITY ARTERIAL SYSTEM. VELOCITY MEASUREMENTS THROUGHOUT THE FEMORAL ARTERIES WITH ANKLE-BRACHIAL PERIPHERAL ARTERIAL TESTING. Interventional Radiologist: Cam Ryan M.D., F.S.I.R., F.A.C.R. CLINICAL INFORMATION: This is a 70-year-old female with a history of hypertension, former smoker, diabetes, peripheral arterial disease. COMPARISON: Comparison is made to a previous study dated May 14, 2020. RIGHT FEMORAL RUNOFF VELOCITIES: The right common femoral artery measures 172 cm/s and triphasic. Previously, this measured 131 cm/s and triphasic. The right profunda femoral artery is 144 cm/s and is triphasic. Previously, this measured 123 and triphasic. Right proximal superficial femoral artery measures 122 cm/s and triphasic. Previously, this measured 1 23 cm/s and triphasic. Mid superficial femoral artery is 110 cm/s and triphasic. Previously, this measured 91 cm/s and triphasic. Distal right superficial femoral artery measures 110 cm/s and is triphasic. Previously, this measured 177 cm/s and triphasic. Right popliteal velocity measures 162 cm/s and is triphasic. Previously, this measured 214 cm/s and monophasic. The posterior tibial artery velocity measures 35 cm/s and was monophasic. Previously, this measured 24 cm/s and monophasic. The right ankle-brachial index is 0.27. Previously, this measured 0.53. LEFT FEMORAL RUNOFF VELOCITIES: The left common femoral artery measures 192 cm/s and triphasic. Previously, this measured 202 cm/s and triphasic. The left profunda femoral artery is 218 cm/s and is triphasic. Previously, this measured 160 cm/s and triphasic. Left proximal superficial femoral artery measures 189 cm/s and triphasic. Previously, this measured 95 cm/s and monophasic. Mid superficial femoral artery is 217 cm/s and triphasic. Previously, this measured 602 cm/s and monophasic. Distal left superficial femoral artery measures 43 cm/s and is triphasic. Previously, this measured 44 cm/s and monophasic. Left popliteal velocity measures 63 cm/s and is monophasic and with severe disease. Previously, this measured 27 cm/s and monophasic. The posterior tibial artery velocity measures 122 cm/s and with severe disease. Previously, this measured 21 cm/s with severe disease. The left ankle-brachial index is 0.73. Previously, this measured 0.50. US/US arterial duplex LE BI IMPRESSION: 1. Abnormal peripheral arterial testing with abnormal bilateral ankle-brachial index and velocity measurements. 2. The previously identified right popliteal artery stenosis is not apparent on the present study. However, the ankle-brachial index appears worse on today's study. 3. The previously identified severe mid left superficial femoral artery stenoses appears less severe on the current study. Furthermore, the ankle-brachial index appears improved on today's study.
== END 2020-10-29 08:09 | disposition home or self-care (01) ==
LOC: HO.US 08:08
PROVIDERS: Visit Provider Surgery Vascular Surgery
DX: I70.213 Atherosclerosis of native arteries of extremities with intermittent claudication, bilateral legs (principal)
CPT/HCPCS: 93923; 93925

== ENCOUNTER → 2020-10-31 14:51 | Outpatient (BNVA) | payer MEDICARE, SELFPAY | PROVIDERS: Visit Provider Surgery Vascular Surgery | DX: I73.9 Peripheral vascular disease, unspecified (principal) | CPT/HCPCS: 99212 ==

== ENCOUNTER 2020-11-06 07:20 | Day surgery (SDC) | payer MEDICARE, SELFPAY ==
[2020-11-06] VITALS (7 sets, daily range): BP systolic 126–155; BP diastolic 59–76; PULSE 81–88; RESP 16–18; TEMP 36.1–36.4; O2SAT 94–97; BMI 30.3
[2020-11-06 08:06] LABS: Glucose, Whole Blood 161 mg/dL (60-115)
[2020-11-06 08:12] LABS: Hematocrit 42.4 % (37-47); Hemoglobin 13.5 g/dl (12.0-16.0); Mean Corpuscular HGB Conc 31.8 g/dl (31.0-35.0); Mean Corpuscular Hemoglobin 26.8 pg (27.0-33.0); Mean Corpuscular Volume 84.1 fL (80-98); Mean Platelet Volume 9.9 fL (9.4-12.3); Platelet Count 402 X10*3/uL (160-400); Red Blood Count 5.04 X10*6/uL (4.20-5.50)
[2020-11-06 08:15] LABS: WBC ABN SCTR FOR CBC 1
[2020-11-06 08:25] LABS: Prothrombin Time 10.9 SEC (9.9-13.0)
[2020-11-06 08:27] LABS: Partial Thromboplastin Time 36.6 SEC (24.1-38.0)
[2020-11-06 08:34] LABS: Anion Gap 14 (12-20); Blood Urea Nitrogen 23 mg/dL (9-16); Calcium 10.1 mg/dL (8.4-10.2); Carbon Dioxide 27 mmol/L (22-29); Chloride 104 mmol/L (96-108); Creatinine Clr Calc Pharmacy 59.8; Estimated Glomerular Filt Rate > 60; Glucose Random 186 mg/dL (60-115); Potassium 4.2 mmol/L (3.3-5.1); Sodium 141 mmol/L (135-145)
[2020-11-06 08:36] LABS: White Blood Count 20.8 X10*3/uL (4.8-10.8)
[2020-11-06 08:38] LABS: Band Neutrophils Percent 0 % (3-5); Eosinophils Absolute Manual 0.2 X10*3/UL (0.0-0.8); Eosinophils Percent Manual 1 % (0-4); Lymphocytes Absolute Manual 15.4 X10*3/uL (0.6-4.8); Lymphocytes Percent Manual 74 % (20-40); Monocytes Absolute Manual 0.6 X10*3/uL (0.0-1.2); Monocytes Percent Manual 3 % (2-11); Neutrophils Absolute Manual 4.6 X10*3/uL (2.2-7.9); Neutrophils Percent Manual 22 % (45-73)
[2020-11-06 08:39] LABS: Platelet Estimate SLIGHTLY INCREASED (NORMAL); Platelet Morphology Comment NORMAL; RBC Morphology NORMAL; Smudge Cells PRESENT
--- NOTE | 2020-11-06 11:47 | W.PM.OPN ---
Operative Note Operative Note Date of Service: 11/06/20 Narrative: Angiogram report from [facility] Preoperative diagnosis: Atherosclerosis of right lower extremity with activity limiting claudication Postoperative diagnosis: Same Procedure: 1. Ultrasound-guided left common femoral access 2. Aortogram with right lower extremity runoff 3. Right plasty of peroneal artery 4. Right plasty of popliteal artery Surgeon:Aidan Jeff M.D. Sheltered Workshop Worker:None Anesthesia: Local with moderate conscious sedation for a total of 47 minutes, performed by il Specimens:none Drains:none Estimated blood loss: Less than 10 ml Indications: 70-year-old female who had a prior left-sided intervention and nonhealing ulcer had done well from that in went on to heal her amputation site. Upon surveillance workup was noted to have right-sided disease with an SUSANNA on the right of 0.27. She now presents for endovascular intervention The patient has signed the informed consent after reviewing risks, complications, benefits, and alternatives previously discussed with the patient in my office. The patient was given the opportunity to ask any additional questions or voice any concerns. All questions were answered to the patient's satisfaction. Procedure in detail: Patient was brought to the angiography suite prior to which a time-out was called for patient identification and site verification. Bilateral groins were prepped and draped in the standard surgical fashion. Under ultrasound guidance leftcommon femoral was punctured with micro puncture needle and wire. Subsequently a precision 4 [place] Island[place] sheath was then placed. Bentson wire was advanced to the level of the aorta. 4 [place] Flush catheter was brought up and parked at the level of the renal arteries. Aortogram was then undertaken. Catheter was brought down to the level of the iliac bifurcation. Iliacs were subsequently imaged. Catheter was then brought in up and over to the rightside SFA. Runoff study was then undertaken. At this time 5000 units of systemic heparin was administered. Up and over 6 [place]er sheath was then placed. Glidewire Advantage was brought all the way down to the peroneal artery. We confirmed true lumen with a trail Blazer catheter and instilling contrast. Once this was done we plasty this area with a 3 x 40 balloon. Good result was achieved. The P1 segment of the popliteal appeared to be stenosed. We plasty this area with a 5 x 20 balloon. Subsequently we brought in a drug coated 5 x 40 balloon. This was brought into position in under 3 minutes and insufflated for a total of 3 minutes in duration. Good result was achieved catheter wire sheath was brought back to the ipsilateral side StarClose closure device was deployed patient tolerated the procedure well. Returned to recovery with stable vitals. Interpretation of films: 1. Ultrasound demonstrates appropriate femoral puncture. Image of which was saved. 2. Aortogram demonstrates appropriate caliber aorta. Minimal disease. Appropriate take-off of the renals. 3. Iliac images demonstrate good flow through bilateral iliacs 4. Right side demonstrated mild to moderate calcific disease throughout the entire SFA. Giving a m[address] appearance. Behind knee high-grade stenosis. Below-knee peroneal was the main runoff vessel. There was stenosis at the origin. Anterior tibial there was the hint of in origin. Completely occludes and reconstitutes at the level of the ankle. Posterior tibial is completely out 5. Completion angiogram demonstrated good flow through the SFA popliteal and peroneal artery which is the dominant runoff. Conclusion: 1. Successful angiogram with plasty right popliteal and peroneal artery. Due to the use of a drug coated balloon patient will require 6 months aspirin and Plavix. This note is constructed using voice recognition software. While every effort has been made to ensure accuracy, security officer supervisor errors may have been included. Thank you for allowing me to participate in the care of your patient. Yours sincerely, Aidan Jeff MD, FACS, R.P.V.I.
[2020-11-06] MEDS: Clopidogrel Bisulfate 300 MG TABLET PO (11:50)
[2020-11-06] MEDS: iohexoL 300 MG/ML 100 ML INFUS..BTL IV (13:33)
[2020-11-06] MEDS: Lidocaine HCl 1 % MPF 5 ML VIAL SUBCUT (13:33)
== END 2020-11-06 13:48 | disposition home or self-care (01) ==
PROVIDERS: Visit Provider Surgery Vascular Surgery
DX: E11.51 Type 2 diabetes mellitus with diabetic peripheral angiopathy without gangrene (principal); I70.211 Atherosclerosis of native arteries of extremities with intermittent claudication, right leg; Z79.84 Long term (current) use of oral hypoglycemic drugs; Z89.412 Acquired absence of left great toe; I10 Essential (primary) hypertension; Z79.899 Other long term (current) drug therapy
CPT/HCPCS: 36415; 37224; 37228; 76937; 80048; 82947; 85007; 85027; 85610; 85730; 99152; 99153; C1725; C1760; C1769; C1887; J2250; J3010; Q9967

== ENCOUNTER → 2020-11-26 14:43 | Outpatient (BNVA) | payer MEDICARE, SELFPAY | PROVIDERS: Visit Provider Surgery Vascular Surgery | DX: I73.9 Peripheral vascular disease, unspecified (principal) | CPT/HCPCS: 99212 ==

== ENCOUNTER 2021-03-31 13:10 | Outpatient (REF) | payer MEDICARE, SELFPAY ==
--- NOTE | ~2021-03-31 | MM_ITS ---
EXAMINATION: MM SCREENING DIGITAL BREAST TOMOSYNTHESIS, BILATERAL CLINICAL INFORMATION: Screening. Asymptomatic. The lifetime risk of breast cancer based on the Tyrer-Cuzick Model is 3%. COMPARISON: Mammography: 08/07/2016, 10/26/2014 TECHNIQUE: Digital breast tomosynthesis is performed in both the craniocaudal and mediolateral oblique views along with computer-aided detection (CAD). Synthesized 2D images are generated from the tomosynthesis. Additional left CC view is provided. FINDINGS: The breasts are almost entirely fatty (ACR BI-RADS breast composition Category a). Background stromal and fibroglandular densities are stable. There is no developing density or interval mass or architectural abnormality. There are bilateral vascular calcifications again seen. Bilateral axillary nodes are similar to prior study. The skin contours are smooth. MM/MM tomosynthesis screening BI IMPRESSION: No mammographic evidence of malignancy. ASSESSMENT: BI-RADS 2: Benign RECOMMENDATION: Routine annual mammography screening. This patient's information was entered into a reminder system with a target due date for their next mammogram.
== END 2021-03-31 13:11 | disposition home or self-care (01) ==
LOC: HO.MAMMO 13:10
PROVIDERS: Visit Provider Internal Medicine
DX: Z12.31 Encounter for screening mammogram for malignant neoplasm of breast (principal)
CPT/HCPCS: 77063; 77067

== ENCOUNTER 2021-05-08 09:11 | Outpatient (REF) | payer MEDICARE, SELFPAY ==
--- NOTE | ~2021-05-08 | US_ITS ---
EXAMINATION: Noninvasive assessment of the arteries of both lower extremities to include a PVR exam limited (1-2 levels) and SUSANNA, bilateral. ? Andrea Black M.D. CLINICAL INFORMATION: Peripheral vascular disease COMPARISON: 10/29/2020 TECHNIQUE: The ankle/brachial indices of the distal posterior tibial and the dorsalis pedis arteries were obtained of the lower extremity arterial system bilaterally; along with pressures and pulse volume recordings at the ankle and duplex Doppler techniques of the common femoral, proximal femoral and proximal profunda arteries. The study was performed at rest. ? FINDINGS AT REST:? RIGHT LE. THE RIGHT ANKLE-BRACHIAL INDEX IS: 1.22 (higher of the DP/PT) >0.97-1.25 = normal - no significant arterial disease 0.75-0.96 = mild peripheral arterial disease 0.50-0.74 = moderate peripheral arterial disease <0.50 = severe peripheral arterial disease <0.30 = critical arterial disease 2. SEGMENTAL PRESSURES: Ankle: PT 163 DP 138 3. PVR WAVEFORMS: Ankle: Abnormally blunted 4. DIRECT DUPLEX: There is atherosclerotic throughout the right lower extremity arterial system. Elevated velocity in the common femoral artery with preserved triphasic waveform, peak systolic velocity is 239 cm/s. There are triphasic waveforms throughout the SFA with mildly elevated velocities throughout, peak systolic velocity in the proximal SFA is 183 cm/s. Monophasic waveform in the popliteal artery and posterior tibial arteries. LEFT LE. THE LEFT ANKLE-BRACHIAL INDEX IS: 0.8 (higher of the DP/PT) >0.97-1.25 = normal - no significant arterial disease 0.75-0.96 = mild peripheral arterial disease 0.50-0.74 = moderate peripheral arterial disease <0.50 = severe peripheral arterial disease <0.30 = critical arterial disease 2. SEGMENTAL PRESSURES: Ankle: PT 107 DP 104 3. PVR WAVEFORMS: Ankle: Abnormally blunted 4. DIRECT DUPLEX: Atherosclerotic plaque throughout the left lower extremity. Atherosclerotic plaque with elevated velocity in the common femoral artery, peak systolic velocity is 228 cm/s. Elevated velocity in the profunda femoral artery with a peak systolic velocity of 2 47 cm/s. There are preserved triphasic waveforms in the SFA with elevated velocity proximally measuring 194 cm/s. Monophasic flow in the popliteal artery and posterior tibial arteries. ? US/US arterial duplex LE BI IMPRESSION: Right lower extremity: Normal SUSANNA with abnormally blunted PVR waveform. Atherosclerotic plaque throughout the right lower extremity. Elevated velocities in the common femoral artery and in the SFA suggesting mild disease. Monophasic waveforms in the popliteal artery and posterior tibial artery. Left lower extremity: Abnormal SUSANNA of 0.8. Abnormally blunted PVR waveform. Elevated velocities in the common femoral artery, proximal profunda femoral artery and SFA. Monophasic flow in the popliteal artery and posterior tibial artery.
== END 2021-05-08 09:12 | disposition home or self-care (01) ==
LOC: HO.US 09:11
PROVIDERS: Visit Provider Surgery Vascular Surgery
DX: I73.9 Peripheral vascular disease, unspecified (principal)
CPT/HCPCS: 93923; 93925

== ENCOUNTER → 2021-05-29 14:38 | Outpatient (BNVA) | payer MEDICARE, SELFPAY | PROVIDERS: PCP Internal Medicine; Visit Provider Surgery Vascular Surgery | DX: I73.9 Peripheral vascular disease, unspecified (principal) | CPT/HCPCS: 99212 ==

== ENCOUNTER 2022-05-20 09:25 | Outpatient (REF) | payer MEDICARE, SELFPAY ==
--- NOTE | ~2022-05-20 | US_ITS ---
EXAMINATION: NONINVASIVE ASSESSMENT OF THE ARTERIES OF BOTH LOWER EXTREMITIES WITH PVR EXAM AND BILATERAL LOWER EXTREMITY DUPLEX Julianna Reyes MD CLINICAL INFORMATION: Peripheral vascular disease TECHNIQUE: Ankle pulse volume recordings, ankle pressure measurements and ankle brachial indices were obtained of the lower extremity arterial system bilaterally in addition to duplex Doppler techniques with wave form analysis and measurement of velocities in the common femoral, profunda femoral, superficial femoral, popliteal and tibial arteries. The study was performed only at rest. COMPARISON: Noninvasive arterial exam on 05/08/21 FINDINGS: a) AT REST: RIGHT LE. The right ankle-brachial index is: 0.92 * >0.97-1.25 = normal - no significant arterial disease * 0.75-0.96 = mild peripheral arterial disease * 0.5-0.74 = moderate peripheral arterial disease * <0.50 = severe peripheral arterial disease 2. Right ankle pressure: normal. 3. Right ankle PVR waveform: normal. 4. Right direct duplex Doppler findings: Common femoral artery: 170 cm/s, Multiphasic Profunda femoris artery: 159 cm/s, Multiphasic Superficial femoral artery (proximal): 165 cm/s, Multiphasic Superficial femoral artery (mid): 210 cm/s, Multiphasic Superficial femoral artery (distal): 83 cm/s, Multiphasic Proximal Popliteal artery: 81 cm/s, Multiphasic Mid posterior tibial artery: 52 cm/s, Multiphasic The mid right posterior tibial artery is occluded and there is reversal of flow in the distal posterior tibial artery. LEFT LE. The left ankle-brachial index is: 0.67 * >0.97-1.25 = normal - no significant arterial disease * 0.75-0.96 = mild peripheral arterial disease * 0.5-0.74 = moderate peripheral arterial disease * <0.50 = severe peripheral arterial disease 2. Left ankle pressure: normal. 3. Left ankle PVR waveform: normal. 4. Left direct duplex Doppler findings: Common femoral artery: 215 cm/s, Multiphasic Profunda femoris artery: 250 cm/s, Multiphasic Superficial femoral artery (proximal): 136 cm/s, Multiphasic Superficial femoral artery (mid): 138 cm/s, Multiphasic Superficial femoral artery (distal): 66 cm/s, Multiphasic Proximal Popliteal artery: 66 cm/s, Multiphasic Mid posterior tibial artery: Occluded at the mid calf US/US arterial duplex LE BI IMPRESSION: RIGHT LEG: Mild peripheral arterial disease by SUSANNA. Moderate stenoses in the mid superficial femoral artery . Occlusion of the right mid posterior tibial artery. LEFT LEG: Moderate peripheral arterial disease with occlusion of the mid posterior tibial artery.
== END 2022-05-20 09:26 | disposition home or self-care (01) ==
LOC: HO.US 09:25
PROVIDERS: Visit Provider Surgery Vascular Surgery
DX: I70.213 Atherosclerosis of native arteries of extremities with intermittent claudication, bilateral legs (principal)
CPT/HCPCS: 93923; 93925

== ENCOUNTER → 2022-05-26 08:31 | Outpatient (BNVA) | payer MEDICARE, SELFPAY | PROVIDERS: PCP Internal Medicine; Visit Provider Surgery Vascular Surgery | DX: I73.9 Peripheral vascular disease, unspecified (principal); Z89.412 Acquired absence of left great toe | CPT/HCPCS: 99212 ==

== ENCOUNTER 2022-11-18 11:19 | Outpatient (REF) | payer MEDICARE, SELFPAY ==
[2022-11-18 14:04] LABS: Hematocrit 43.8 % (37.0-47.0); Hemoglobin 12.6 g/dl (12.0-16.0); Mean Corpuscular HGB Conc 28.8 g/dl (31.0-35.0); Mean Corpuscular Hemoglobin 24.7 pg (27.0-33.0); Mean Corpuscular Volume 85.7 fL (80.0-98.0); Mean Platelet Volume 11.5 fL (9.4-12.3); Platelet Count 283 X10*3/uL (160-400); Red Blood Count 5.11 X10*6/uL (4.20-5.50)
[2022-11-18 14:13] LABS: WBC ABN SCTR FOR CBC 1
[2022-11-18 14:14] LABS: White Blood Count 110.8 X10*3/uL (4.8-10.8)
[2022-11-18 14:35] LABS: Alanine Aminotransferase 14 U/L (0-31); Alkaline Phosphatase 98 U/L (39-117); Anion Gap 12 (12-20); Aspartate Amino Transferase 21 U/L (5-31); Bilirubin Direct 0.1 mg/dL (0.0-0.5); Bilirubin Total 0.3 mg/dL (0.0-1.0); Blood Urea Nitrogen 14 mg/dL (9-16); Calcium 9.9 mg/dL (8.4-10.2); Carbon Dioxide 26 mmol/L (22-29); Chloride 112 mmol/L (96-108); Cholesterol 207 mg/dL; Estimated Glomerular Filt Rate > 60; Glucose Random 110 mg/dL (60-115); HDL Cholesterol 33 mg/dL; LDL Cholesterol Calculated 150 mg/dl; Potassium 4.2 mmol/L (3.3-5.1); Sodium 146 mmol/L (135-145); Total Protein 7.2 g/dL (6.5-8.0); Triglycerides 123 mg/dL
[2022-11-18 14:42] LABS: Band Neutrophils Percent 0 % (3-5); Eosinophils Absolute Manual 1.1 X10*3/uL (0.0-0.4); Eosinophils Percent Manual 1 % (0-4); Lymphocytes Absolute Manual 105.3 X10*3/uL (1.2-4.9); Lymphocytes Percent Manual 95 % (20-40); Monocytes Absolute Manual 1.1 X10*3/uL (0.1-1.2); Monocytes Percent Manual 1 % (2-11); Neutrophils Absolute Manual 3.3 X10*3/uL (2.0-8.3); Neutrophils Percent Manual 3 % (45-73)
[2022-11-18 14:45] LABS: Hypochromasia 1+ (5-14) /OIF; Microcytosis 1+ (5-14) /OIF; Ovalocytes 1+ (5-14) /OIF; Platelet Estimate NORMAL (NORMAL); Platelet Morphology Comment NORMAL; RBC Morphology NOTED; Smudge Cells PRESENT
[2022-11-18 14:46] LABS: Microalbum/Creatinine Ratio Ur 25.1 ug/mg cr
== END 2022-11-18 11:20 | disposition home or self-care (01) ==
LOC: HO.HHCL 11:19
PROVIDERS: Visit Provider Internal Medicine
DX: E11.65 Type 2 diabetes mellitus with hyperglycemia (principal); I10 Essential (primary) hypertension
CPT/HCPCS: 36415; 80048; 80061; 80076; 82043; 85007; 85025; 85027

== ENCOUNTER 2022-11-19 15:56 | Emergency (ER) | payer MEDICARE, SELFPAY ==
--- NOTE | ~2022-11-19 | XR_ITS ---
EXAMINATION: XR CHEST CLINICAL INFORMATION: Weakness. COMPARISON: None available. TECHNIQUE: 2 views of the chest were obtained. FINDINGS: Mild diffuse interstitial thickening. Central pulmonary vasculature prominence. Normal appearance of the cardiomediastinal silhouette. No focal consolidation. No pleural effusion or pneumothorax. Thoracic spondylosis. No displaced osseous fractures. XR/XR chest 2V IMPRESSION: Mild diffuse interstitial thickening, nonspecific could be associated with an atypical infectious/inflammatory process such as viral pneumonia, bronchitis and reactive airways disease. A component of mild pulmonary edema is not excluded.
[2022-11-19 16:30] VITALS: BP 152/69; PULSE 80; RESP 18; TEMP 36.7; O2SAT 96; BMI 34.9
--- NOTE | 2022-11-19 16:32 | ED_ITS ---
HPI - General Adult General Chief complaint: General Medical Stated complaint: ? luekemia sent from drs office Time Seen by Provider: 11/19/22 18:23 Source: patient, family (granddaughter), RN notes reviewed and old records re viewed Mode of arrival: ambulatory Limitations: no limitations History of Present Illness HPI narrative: 72-year-old female with past medical history significant for hypertension, diabetes, peripheral artery disease presents for evaluation of abnormal labs. Patient saw her primary doctor yesterday and had routine blood work drawn. Her doctor told her to come to the emergency department because her white blood cell count was 110 K The patient denies any complaints or concerns. She specifically denies any fevers, chills, weight gain, weight loss, night sweats Related Data Home Medications Medication Instructions Recorded Confirmed atorvastatin 40 mg tablet 40 mg PO BEDTIME 06/10/20 06/10/20 empagliflozin 10 mg tablet 10 mg PO DAILY 06/10/20 06/10/20 (Jardiance) gabapentin 100 mg capsule 100 mg PO BID 06/10/20 06/10/20 glipizide 10 mg tablet, extended 10 mg PO DAILY 06/10/20 06/10/20 release 24 hr lisinopril 40 mg tablet 40 mg PO DAILY 06/10/20 06/10/20 pantoprazole 40 mg tablet,delayed 40 mg PO DAILY@0630 06/10/20 06/10/20 release pioglitazone 15 mg tablet 15 mg PO DAILY 06/10/20 06/10/20 Previous Rx's Medication Instructions Recorded amoxicillin 875 mg-potassium 1 tab PO BID #20 tabs 06/17/20 clavulanate 125 mg tablet (Augmentin) aspirin 81 mg tablet,delayed 81 mg PO DAILY #30 tabs 06/17/20 release (Keke Low Dose Aspirin) clopidogrel 75 mg tablet (Plavix) 75 mg PO DAILY #30 tabs 06/17/20 doxycycline hyclate 100 mg tablet 100 mg PO BID #20 tabs 06/17/20 oxycodone-acetaminophen 5 mg-325 1 tab PO Q4-6H PRN pain #14 tabs 06/17/20 mg tablet (Percocet) cephalexin 500 mg capsule 500 mg PO BID #20 caps 08/27/20 doxycycline hyclate 100 mg tablet 100 mg PO BID #20 tabs 09/10/20 clopidogrel 75 mg tablet (Plavix) 75 mg PO DAILY #30 tabs 11/06/20 Allergies Allergy/AdvReac Type Severity Reaction Status Date / Time Milk Containing Products Allergy Mild DIARRHEA Verified 05/26/22 09:04 (Dairy) [Milk Products] Review of Systems Constitutional: Constitutional: Denies chills, Denies fever(s) and Denies malaise Cardiovascular: Cardiovascular: Denies chest pain and Denies dyspnea Respiratory: Respiratory: Denies cough and Denies dyspnea Gastrointestinal: Gastrointestinal: Denies abdominal pain, Denies nausea and Denies vomiting Musculoskeletal: Musculoskeletal: Denies back pain PMFSH Past Medical History Medical History Diabetes mellitus, type 2 HTN (hypertension) Hx of cataract Osteomyelitis Surgical History 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) H/O: hysterectomy History of carpal tunnel release Social History Social History Household Members: None Housing: House Do you presently have visiting nurse or other home services: No Smoked in Last 30 Days: No Use of substances other than those prescribed or required for medical reasons: No Advance Directives: No Advance Directives Information Provided: No service: No Physical Exam ED Vital Signs: Vital Signs - 24 hr 11/19/22 16:30 11/19/22 19:08 Temperature 98.0 F 98.6 F Pulse Rate 80 84 Respiratory Rate 18 17 Blood Pressure 152/69 H 180/76 H Pulse Oximetry 96 97 Oxygen Delivery Method Room Air Room Air BMI result Body Mass Index 34.9 Const General: healthy appearing, comfortable, no acute distress, alert and awake Nutritional Appearance: well nourished Orientation/consciousness: patient oriented x3 HENMT Head: Yes normocephalic and Yes atraumatic Eyes Eyelids: Yes eyelids normal Conjunctivae: conjunctivae normal Sclerae: sclerae normal Corneas: corneas normal Pupils: Equal, round and reactive pupils present EOM: EOMs intact bilaterally Neck Neck: Yes full ROM Resp Effort & Inspection: normal respiratory effort, able to speak in complete sentences and not labored GI Inspection: No distended Palpation (GI): Soft to palpation and nontender Skin General skin exam: no rashes or lesions noted and elasticity normal Neuro General: patient oriented x3 Cranial nerves: Yes Equal, round and reactive pupils present and Yes Bilaterally intact EOM present Cognition (Neuro): normal cognition Extrem Other: Moving all extremities well without any obvious deformities Course Course Course Narrative: This is an RME: Additional HPI, ROS, PE not included below will be deferred to primary provider. This is a 43-kuin-uhd-female, with a hx of diabetes and HTN, presenting to the ER with complaints of abnormal labs. Patient was seen by primary care physician yesterday where they ordered basic labs and was told to come to the emergency department to rule out leukemia. Patient is feeling well, no current complaints. Of note labs show WBC 110k yesterday. Vital signs stable Plan: Labs ordered Reevaluation(s) Reevaluation #1: I discussed with the patient and granddaughter who is bedside the patient likely has CLL and the patient needs to follow-up with heme Onc as soon as possible and to call tomorrow morning Time: 19:12 Reevaluation #2: Patient apparently suffered a fall while walking to x-ray. She reports that her Crocs stuck on the ground causing her to fall forward onto both of her knees. She did not hit her head or lose consciousness. She has a small abrasion to the right knee. She is able to flex and extend both knees, she is nontender and is able to stand without any difficulty. I do not see any indication for further emergent imaging. The patient was provided bacitracin and a bandage Time: 19:32 Medical Decision Making Medical Decision Making MDM Narrative: 72-year-old female presents for evaluation of abnormal labs. She had repeat labs today the wound shows a cortical leukocytosis of 114.9.5. She has significant lymphocytosis. We will discuss with him a, a page was placed Differential Diagnosis Differential Diagnoses: The differential diagnosis associated with the presentation includes CLL ALL Lymphoma Leukocytosis Consult Healthcare Provider Management of the patient was discussed with: Punch Card Operator Received call back from Dr. Smith, who recommends getting a baseline chest x- ray for the patient but the patient can be discharged as she has stable vitals and appears well. She would like the patient to call the office in the morning Lab Data 11/19/22 16:51 11/19/22 16:51 Labs: Lab Results 11/19/22 11/19/22 Range/Units 16:51 16:51 WBC 114.9 H* (4.8-10.8) X10*3/uL RBC 4.64 (4.20-5.50) X10*6/uL Hgb 11.6 L (12.0-16.0) g/dl Hct 39.0 (37.0-47.0) % MCV 84.1 (80.0-98.0) fL MCH 25.0 L (27.0-33.0) pg MCHC 29.7 L (31.0-35.0) g/dl RDW 16.2 H (11.0-16.0) % Plt Count 277 (160-400) X10*3/uL MPV 10.8 (9.4-12.3) fL Immature Gran % (Auto) Cancelled Neut % (Auto) Cancelled Lymph % (Auto) Cancelled [place] % (Auto) Cancelled Eos % (Auto) Cancelled Baso % (Auto) Cancelled Lymph # (Auto) Cancelled [place] # (Auto) Cancelled Eos # (Auto) Cancelled Baso # (Auto) Cancelled Abs Immat Gran (auto) Cancelled Absolute Neuts (auto) Cancelled Absolute Nucleated RBC 0.000 (0.0-0.012) X10*3/uL Nucleated RBC % (auto) 0.0 (0.0-0.2) /100WBC Neutrophils % (Manual) 9 L (45-73) % Band Neutrophils % 0 L (3-5) % Lymphocytes % (Manual) 88 H (20-40) % Monocytes % (Manual) 2 (2-11) % Eosinophils % (Manual) 1 (0-4) % Abs Neuts (Manual) 10.3 H (2.0-8.3) X10*3/uL Lymphocytes # (Manual) 101.1 H (1.2-4.9) X10*3/uL Monocytes # (Manual) 2.3 H (0.1-1.2) X10*3/uL Eosinophils # (Manual) 1.1 H (0.0-0.4) X10*3/uL Smudge Cells PRESENT Platelet Estimate NORMAL (NORMAL) Plt Morphology Comment NORMAL RBC Morphology NOTED Microcytosis 1+ (5-14) /OIF Ovalocytes 1+ (5-14) /OIF Perla Cells 1+ (0-2) /OIF Sodium 141 (135-145) mmol/L Potassium 4.6 (3.3-5.1) mmol/L Chloride 111 H (96-108) mmol/L Carbon Dioxide 23 (22-29) mmol/L Anion Gap 12 (12-20) BUN 16 (9-16) mg/dL Creatinine 0.86 (0.5-1.4) mg/dL Estim Creat Clear Calc 61.7 Estimated GFR > 60 Random Glucose 128 H (60-115) mg/dL Calcium 9.7 (8.4-10.2) mg/dL Total Bilirubin 0.2 (0.0-1.0) mg/dL AST 15 (5-31) U/L ALT 11 (0-31) U/L Alkaline Phosphatase 110 (39-117) U/L Total Protein 6.9 (6.5-8.0) g/dL Albumin 3.7 (3.5-5.0) g/dL Discharge Plan Discharge Clinical Impression: Chronic lymphocytic leukemia Patient Disposition: Home, Self-Care Instructions: Chronic Lymphocytic Leukemia (DC) Additional Instructions: Unfortunately based on your blood work, it is concerning that you have a type of leukemia called chronic lymphocytic leukemia or CLL. Follow-up with Dr Smith by calling the number provided tomorrow between 9:00 a.m. and 12 noon Return to the ER if you develop any new symptoms such as fevers, chills, significant pain or severe weight loss Prescriptions: No Action pioglitazone 15 mg Tablet 15 mg PO DAILY atorvastatin 40 mg Tablet 40 mg PO BEDTIME glipizide 10 mg Tablet Extended Release 24hr 10 mg PO DAILY pantoprazole 40 mg Tablet,Delayed Release (Dr/Ec) 40 mg PO DAILY@0630 gabapentin 100 mg Capsule 100 mg PO BID lisinopril 40 mg Tablet 40 mg PO DAILY Jardiance 10 mg Tablet 10 mg PO DAILY amoxicillin-pot clavulanate [Augmentin] 875-125 mg tablet 1 tab PO BID Qty: 20 0RF doxycycline hyclate 100 mg tablet 100 mg PO BID Qty: 20 0RF clopidogrel [Plavix] 75 mg tablet 75 mg PO DAILY Qty: 30 3RF aspirin [Keke Low Dose Aspirin] 81 mg tablet,delayed release (DR/EC) 81 mg PO DAILY Qty: 30 3RF oxycodone-acetaminophen [Percocet] 5-325 mg tablet 1 tab PO Q4-6H PRN (Reason: pain) Qty: 14 0RF clopidogrel [Plavix] 75 mg tablet 75 mg PO DAILY Qty: 30 5RF cephalexin 500 mg capsule 500 mg PO BID Qty: 20 0RF doxycycline hyclate 100 mg tablet 100 mg PO BID Qty: 20 0RF Referrals: Sherry Smith MD [Physician] - (new diagnosis of CLL)
[2022-11-19 17:18] LABS: Hemoglobin 11.6 g/dl (12.0-16.0); Mean Corpuscular HGB Conc 29.7 g/dl (31.0-35.0); Mean Corpuscular Volume 84.1 fL (80.0-98.0); Mean Platelet Volume 10.8 fL (9.4-12.3); Platelet Count 277 X10*3/uL (160-400); Red Blood Count 4.64 X10*6/uL (4.20-5.50); Red Cell Distribution Width 16.2 % (11.0-16.0)
[2022-11-19 17:20] LABS: Alanine Aminotransferase 11 U/L (0-31); Albumin Level 3.7 g/dL (3.5-5.0); Alkaline Phosphatase 110 U/L (39-117); Anion Gap 12 (12-20); Aspartate Amino Transferase 15 U/L (5-31); Bilirubin Total 0.2 mg/dL (0.0-1.0); Blood Urea Nitrogen 16 mg/dL (9-16); Calcium 9.7 mg/dL (8.4-10.2); Carbon Dioxide 23 mmol/L (22-29); Chloride 111 mmol/L (96-108); Creatinine Clr Calc Pharmacy 61.7; Estimated Glomerular Filt Rate > 60; Glucose Random 128 mg/dL (60-115); Potassium 4.6 mmol/L (3.3-5.1); Sodium 141 mmol/L (135-145)
[2022-11-19 17:21] LABS: Total Protein 6.9 g/dL (6.5-8.0)
[2022-11-19 17:32] LABS: WBC ABN SCTR FOR CBC 1
[2022-11-19 17:39] LABS: White Blood Count 114.9 X10*3/uL (4.8-10.8)
[2022-11-19 18:00] LABS: Band Neutrophils Percent 0 % (3-5); Eosinophils Absolute Manual 1.1 X10*3/uL (0.0-0.4); Eosinophils Percent Manual 1 % (0-4); Lymphocytes Absolute Manual 101.1 X10*3/uL (1.2-4.9); Lymphocytes Percent Manual 88 % (20-40); Monocytes Absolute Manual 2.3 X10*3/uL (0.1-1.2); Monocytes Percent Manual 2 % (2-11); Neutrophils Absolute Manual 10.3 X10*3/uL (2.0-8.3); Neutrophils Percent Manual 9 % (45-73)
[2022-11-19 18:02] LABS: Microcytosis 1+ (5-14) /OIF; Ovalocytes 1+ (5-14) /OIF; RBC Morphology NOTED
[2022-11-19 18:03] LABS: Burr Cells 1+ (0-2) /OIF; Platelet Estimate NORMAL (NORMAL); Platelet Morphology Comment NORMAL
[2022-11-19 18:04] LABS: Smudge Cells PRESENT
[2022-11-19 19:08] VITALS: BP 180/76; PULSE 84; RESP 17; TEMP 37; O2SAT 97
[2022-11-19 19:32] LABS: Lactate Dehydrogenase 212 U/L (122-220); Uric Acid 5.7 mg/dL (2.4-5.7)
[2022-11-23 13:18] LABS: Haptoglobin 108 mg/dL (43-212)
== END 2022-11-19 19:59 | disposition home or self-care (01) ==
PROVIDERS: Physician Assistant Medical; Emergency Provider Emergency Medicine Emergency Medical Services
DX: C95.10 Chronic leukemia of unspecified cell type not having achieved remission (principal); R53.1 Weakness; R06.02 Shortness of breath; Z79.899 Other long term (current) drug therapy
CPT/HCPCS: 36415; 71046; 80053; 83010; 83615; 84550; 85007; 85027; 99283; 99284

== ENCOUNTER → 2022-11-25 09:59 | Outpatient (BNV) | payer MEDICARE, SELFPAY | PROVIDERS: PCP Internal Medicine; Visit Provider Internal Medicine | DX: C91.10 Chronic lymphocytic leukemia of B-cell type not having achieved remission (principal) | CPT/HCPCS: 99202; 99204; 99212; 99214; G2211 ==

== ENCOUNTER 2022-11-25 12:48 | Outpatient (REF) | payer MEDICARE, SELFPAY ==
--- NOTE | ~2022-11-25 | MM_ITS ---
EXAMINATION: BONE DENSITOMETRY CLINICAL INDICATION: Menopause. COMPARISON: This is the patient's baseline examination. TECHNIQUE: Using a [employer] DXA System (software version: 13.1) manufactured by [email or web address], dual-energy x-ray absorptiometry was performed of the lumbar spine and left hip. The images are of good technical quality. Summary results are attached. FINDINGS: LEFT FEMUR, NECK: BMD 0.800 g/cm2, Z-score -0.4, T-score -1.7, osteopenia. LEFT FEMUR, TOTAL: BMD 0.823 g/cm2, Z-score -0.4, T-score -1.5, osteopenia. AP SPINE L1-L4: BMD 1.021 g/cm2, Z-score -0.4, T-score -1.3, osteopenia. IDENTIFIED RISK FACTORS: Menopause. HISTORY OF FRACTURE: None listed. MEDICATIONS: Vitamin D. MM/XR DEXA axial skeleton IMPRESSION: 1. DIAGNOSIS: Osteopenia based on the lowest T-score value of -1.7 in the femoral neck applying World Health Organization criteria. 2. 10-YEAR FRACTURE RISK PREDICTION, FRAX: Major osteoporotic fracture (clinical spine, forearm, hip or shoulder) 6.0%. Hip fracture 1.1%. 3. Treatment Recommendations: NOF guidelines recommend consideration for treatment in postmenopausal women and men age 50 and older presenting with the following: -A hip or vertebral (clinical or morphometric) fracture. -T-score less than or equal to -2.5 at the femoral neck or spine after appropriate evaluation to exclude secondary causes. -Low bone mass at the hip or spine and a 10-year fracture probability by FRAX of greater than or equal to 3% for hip fracture or greater than or equal to 20% for major osteoporotic fracture based on the [place] adapted WHO algorithm. 4. Other Recommendations: All treatment decisions require clinical judgment and consideration of individual patient factors, including patient preferences, comorbidities, previous drug use, risk factors not captured in the FRAX model (e.g. frailty, falls, vitamin D deficiency, increased bone turnover, interval significant decline in bone density) and possible under or overestimation of fracture risk by FRAX. Additional medical evaluation for secondary cause of low bone mineral density may be appropriate. FUTURE SCAN RECOMMENDATION: People with diagnosed cases of osteoporosis or at high risk for fracture should have regular bone mineral density tests. For patients eligible for Medicare, routine testing is allowed once every 2 years. The testing frequency can be increased to one year for patients who have rapidly progressing disease, those who are receiving or discontinuing medical therapy to restore bone mass, or have additional risk factors.
== END 2022-11-25 12:49 | disposition home or self-care (01) ==
LOC: HO.MAMMO 12:48
PROVIDERS: Visit Provider Internal Medicine
DX: N95.8 Other specified menopausal and perimenopausal disorders (principal)
CPT/HCPCS: 77080

== ENCOUNTER → 2022-11-25 13:00 | Outpatient (BNV) | payer MEDICARE, SELFPAY | PROVIDERS: Visit Provider Radiology Diagnostic Radiology | DX: M85.89 Other specified disorders of bone density and structure, multiple sites (principal) | CPT/HCPCS: 77080 ==

== ENCOUNTER 2023-01-21 07:50 | Outpatient (REF) | payer MEDICARE, SELFPAY ==
--- NOTE | ~2023-01-21 | US_ITS ---
EXAMINATION: US ABDOMEN COMPLETE CLINICAL INFORMATION: Question hepatosplenomegaly. COMPARISON: None available. TECHNIQUE: Real-time imaging of the abdominal viscera. FINDINGS: PANCREAS: The head and body the pancreas are normal. The tail is not well visualized due to bowel gas. ABDOMINAL AORTA: The proximal, mid, and distal segments are normal in caliber. INFERIOR VENA CAVA: Visualized portions are normal. LIVER: Liver echotexture is slightly increased. Liver is enlarged, right lobe measuring 20 cm. The liver contour is normal. No focal hepatic lesion. There is no intrahepatic biliary duct dilatation seen. GALLBLADDER: The gallbladder is physiologically distended. Multiple mobile gallstones are present. No evidence of gallbladder wall thickening or pericholecystic fluid. COMMON BILE DUCT: Normal in caliber measuring 0.43 cm in diameter. RIGHT KIDNEY: Normal. No hydronephrosis. No renal calculi or focal parenchymal lesions. The kidney measures 11.5 cm in maximum dimension. LEFT KIDNEY: Normal. No hydronephrosis. No renal calculi or focal parenchymal lesions. The kidney measures 12.1 cm in maximum dimension. SPLEEN: The spleen is enlarged The spleen measures 16.8 cm in maximum dimension. There is a 8 x 6 x 6 mm echogenic lesion in the spleen, question representing a small hemangioma. ADDITIONAL FINDINGS: There are prominent periportal lymph nodes. Largest lymph node measures 2.4 x 0.8 x 1.5 cm. FREE FLUID: None. US/US abdomen complete IMPRESSION: Slightly echogenic liver. Hepatosplenomegaly. Prominent periportal lymph nodes. Gallstones. Limited visualization of the pancreas.
== END 2023-01-21 07:51 | disposition home or self-care (01) ==
LOC: HO.US 07:50
PROVIDERS: Visit Provider Internal Medicine
DX: C91.10 Chronic lymphocytic leukemia of B-cell type not having achieved remission (principal)
CPT/HCPCS: 76700

== ENCOUNTER 2023-05-17 11:22 | Outpatient (REF) | payer MEDICARE, SELFPAY ==
--- NOTE | ~2023-05-17 | US_ITS ---
EXAMINATION: NONINVASIVE ASSESSMENT OF THE ARTERIES OF BOTH LOWER EXTREMITIES INCLUDING PVR EXAM AND BILATERAL LOWER EXTREMITY DUPLEX CLINICAL INFORMATION: Peripheral vascular disease COMPARISON: Arterial duplex 05/20/2022 TECHNIQUE: Ankle pulse volume recordings, ankle pressure measurements and ankle brachial indices were obtained of the lower extremity arterial system bilaterally in addition to duplex Doppler techniques with wave form analysis and measurement of velocities in the common femoral, profunda femoral, superficial femoral, popliteal, tibial and peroneal arteries. The study was performed only at rest. FINDINGS: RIGHT LEG 1. Right Ankle-Brachial Index: 0.93 (higher of the DP/PT) >0.97-1.25 = normal - no significant arterial disease 0.75-0.96 = mild peripheral arterial disease 0.5-0.74 = moderate peripheral arterial disease <0.50 = severe peripheral arterial disease <0.30 = critical arterial disease 2. Segmental Pressures (mmHg): Brachial: 169 Ankle: PT 158, DP 157 3. PVR Waveforms: Ankle: Biphasic 4. Direct Duplex: Common femoral artery: 164 cm/s, triphasic Profunda femoris artery: 78.5 cm/s, Multiphasic Superficial femoral artery (proximal): 98.2 cm/s, Multiphasic Superficial femoral artery (mid): 113.7 cm/s, Multiphasic Superficial femoral artery (distal): 63.8 cm/s, Multiphasic Popliteal artery: 54.7 cm/s, Multiphasic Mid posterior tibial artery: 60.2 cm/s, Multiphasic LEFT LE. Left Ankle-Brachial Index: 0.72 (higher of the DP/PT) >0.97-1.25 = normal - no significant arterial disease 0.75-0.96 = mild peripheral arterial disease 0.5-0.74 = moderate peripheral arterial disease <0.50 = severe peripheral arterial disease <0.30 = critical arterial disease 2. Segmental Pressures: Brachial: 152 Ankle: PT 122, DP 121 3. PVR Waveforms: Ankle: Biphasic 4. Direct Duplex: Common femoral artery: 167.3 cm/s, Multiphasic Profunda femoris artery: 115.4 cm/s, Multiphasic Superficial femoral artery (proximal): 65.3 cm/s, Multiphasic Superficial femoral artery (mid): 44 cm/s, Multiphasic Superficial femoral artery (distal): 44.5 cm/s, Multiphasic Popliteal artery: 61.9 cm/s, Multiphasic Mid posterior tibial artery: 118.6 cm/s, Multiphasic US/US arterial duplex LE BI IMPRESSION: 1. Right ankle-brachial index 0.93, consistent with mild peripheral arterial disease. Improved velocity measurements of the mid SFA 2. Left ankle-brachial index is 0.72, consistent with moderate peripheral arterial disease is unchanged.
== END 2023-05-17 11:23 | disposition home or self-care (01) ==
LOC: HO.US 11:22
PROVIDERS: Visit Provider Surgery Vascular Surgery
DX: I70.213 Atherosclerosis of native arteries of extremities with intermittent claudication, bilateral legs (principal)
CPT/HCPCS: 93923; 93925

== ENCOUNTER 2023-06-10 13:26 | Outpatient (AMB) | payer MEDICARE, SELFPAY ==
--- NOTE | 2023-06-10 13:40 | MHC.OFFVIS ---
Intake Vital Signs 06/10/23 13:42 Height 5 ft 3 in Weight 195 lb BMI 34.5 Intake Visit Reasons: 1 year follow-up after u/s Intake Note: 1 yr follow up Arterial US 05/17/23, pt states no pain w/ Hx of Left SFA Angio & Right LE Angio Accompanied by: Self / Same As Patient Allergies Milk Containing Products (Dairy) [Milk Products] Allergy (Mild, Verified 06/10/23 13:43) DIARRHEA HPI 1 year follow-up after u/s HPI Details Very pleasant 72-year-old female presents for routine arterial surveillance follow-up. She had a prior left great toe amp done nearly 3 years ago. She has been following us for peripheral vascular disease. Left great toe remains healed. She feels fine. No difficulty ambulating. Now for routine surveillance with ultrasound. Of note patient is being maintained on aspirin statin and Plavix PFSH Medical History Osteomyelitis HTN (hypertension) Diabetes mellitus, type 2 Hx of cataract Surgical History 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) History of carpal tunnel release H/O: hysterectomy Social History Household Members: None Housing: House Do you presently have visiting nurse or other home services: No Comment: pt sleeping Patient Tobacco Use Status: Never used Tobacco service: No Current occupational status: retired Review of Systems Const All systems reviewed & are unremarkable except as noted in HPI and below Reports no additional complaints ENT Reports Normal hearing present Card Denies chest pain, Denies chest pain at rest, Denies chest pain with activity and Denies pedal edema Resp Denies cough GI Denies abdominal pain Musc Denies abnormal gait, Denies muscle cramps and Denies radiating pain into limb Skin/Breast Denies skin ulcer and Denies wounds Neuro Reports Normal hearing present and Denies abnormal gait Psych Reports no additional complaints Physical Exam Vital Signs: BMI result Body Mass Index 34.5 Const General: cooperative, healthy appearing and comfortable Orientation/consciousness: oriented to person, oriented to place and oriented to time HEENT Head: Yes normal to inspection Neck Neck: Yes normal visual inspection Carotids: no bruits Chest Chest palpation & inspection: normal inspection of the chest Resp Effort & Inspection: normal respiratory effort and able to speak in complete sentences Auscultation: clear to auscultation bilaterally, no crackles, no rales, no rhonchi and no wheezes Cardio Other: Bilateral DP signals Rate: regular rate Rhythm: regular rhythm Heart sounds: S1 normal heart sound present and S2 normal heart sound present Bruits: no carotid bruits Peripheral pulses: Peripheral pulses 2+ throughout GI Inspection: Yes normal to inspection Skin Wounds: no wounds and amputation site (Toe amp remains healed) Hair: normal Neuro General: oriented to person, oriented to place and oriented to time Cranial nerves: Yes CN's II-XII intact bilaterally and Yes Normal hearing present Cognition (Neuro): normal cognition Motor exam (neuro): 5/5 motor strength present throughout Extrem Other: venous exam: No significant superficial varicosities or spider telangiectasias, minimal edema General: No clubbing, No cyanosis and No edema Psych Appearance: grossly normal Mental Status: mental status grossly normal Speech and movement: Normal speech and movement present Results Reviewed Results Reviewed: Noninvasive arterial testing dated 05/17/2023 demonstrates SUSANNA on the right of 0.93 and on the left of 0.72. There is multi phasic waveforms all the way down. Assessment & Plan Assessment & Plan (1) PAD (peripheral artery disease): Comment: 06/10/2020 - left SFA atherectomy, left anterior tibial and peroneal plasty 06/13/2020 - left great toe amputation 11/06/2020- right plasty of peroneal and popliteal artery Code(s): I73.9 - Peripheral vascular disease, unspecified Plan: In short patient has stable claudication. I did review the pathophysiology of peripheral vascular disease with the patient. In addition we did discuss routine conservative measures including a healthy diet and the importance of exercise and ambulation. We did discuss risk factor modification. The patient will continue to to follow-up with surveillance follow-up in approximately 1 year. Thank you for allowing us to participate in this patient's care. If there are any questions or concerns please do not hesitate to contact us. Coding Level of Care Code Est Pt Level 4 (57590) Diagnoses PAD (peripheral artery disease) I73.9
[2023-06-10 13:42] VITALS: BMI 34.5
== END 2023-06-10 14:10 | disposition home or self-care (01) ==
LOC: HO.HVS 13:27
PROVIDERS: Visit Provider Surgery Vascular Surgery
DX: I73.9 Peripheral vascular disease, unspecified (principal)
CPT/HCPCS: 99213

== ENCOUNTER → 2023-06-10 13:26 | Outpatient (BNVA) | payer MEDICARE, SELFPAY | PROVIDERS: Visit Provider Surgery Vascular Surgery | DX: I73.9 Peripheral vascular disease, unspecified (principal) | CPT/HCPCS: 99212 ==

== ENCOUNTER 2024-04-19 12:57 | Inpatient (IN) | payer MEDICARE, SELFPAY ==
[2024-04-19] VITALS (8 sets, daily range): BP systolic 101–128; BP diastolic 46–66; PULSE 79–106; RESP 13–20; TEMP 36.3–38.8; O2SAT 88–98; BMI 34.6
--- NOTE | ~2024-04-19 | XR_ITS ---
EXAMINATION: XR CHEST 2 VIEWS HISTORY: SOB COMPARISON: Comparison is made with the prior examination dated 11/19/2022. FINDINGS: AP and lateral views of the chest are submitted. The lungs are expanded and clear. There is no pleural effusion, pneumothorax, or pulmonary vascular congestion. The heart is normal in size. There is degenerative disc disease of the spine. XR/XR chest 2V IMPRESSION: No acute cardiopulmonary abnormality. Electronically signed by: Andrea Cat MD 04/19/2024 03:29 PM [facility]
--- NOTE | ~2024-04-19 | CT_ITS ---
CLINICAL HISTORY: SOB, hypoxic CTA chest with 3-D postprocessing Comparison: Chest radiographs of the same day. Findings: Study quality is adequate for the diagnosis of pulmonary embolism. No pulmonary embolism. Heart size within normal limits. RV/LV ratio is normal. Severe calcified coronary artery disease. No aortic dissection or aneurysm. Moderate calcified atherosclerotic disease. Mediastinal and hilar lymphadenopathy measures up to 1.3 cm in short axis. Right axillary lymph nodes measure up to 1.5 cm in short axis. Left axillary lymph nodes measure up to 2.0 cm in short axis. Pulmonary nodules measure up to 9 mm in the superior segment of the right lower lobe. Bronchial wall thickening with secretions in the airways. Calcified granuloma No pneumothorax or pleural effusion. No acute osseous or soft tissue abnormality. No acute pathology in the imaged portion of the upper abdomen. Splenomegaly, measuring 14.3 cm in anterior-posterior dimension. Small hiatal hernia. Increased attenuation material in the gallbladder could be stones. Impression: No pulmonary embolism. Pulmonary nodules measure up to 9 mm. Three-month follow-up chest CT is recommended. Mediastinal/hilar and axillary lymphadenopathy of uncertain etiology. Nonemergent workup is recommended. Bronchial wall thickening may indicate bronchitis. This document has been electronically signed by: Esthela Hatch MD on 04/19/2024 18:21:31
--- NOTE | 2024-04-19 13:24 | ECG_ITS ---
Test Reason : AMS Blood Pressure : */* mmHG Vent. Rate : 96 BPM Atrial Rate : 96 BPM P-R Int : 174 ms QRS Dur : 86 ms QT Int : 364 ms P-R-T Axes : 34 -33 49 degrees QTcB Int : 459 ms Normal sinus rhythm Left axis deviation Moderate voltage criteria for LVH, may be normal variant ( R in aVL , Pan product ) Nonspecific ST abnormality Abnormal ECG When compared with ECG of 05-Oct-2007 07:00, No significant changes seen Referred By: Brigid Lemos Electronically Signed By: VERÓNICA GRANT
[2024-04-19] MEDS: Acetaminophen 1,000 MG/100 ML PIGGYBACK 400 MG IV (13:55)
[2024-04-19] MEDS: 0.9 % Sodium Chloride 1,000 ML 999 ML IV (13:55)
[2024-04-19 14:07] LABS: Hematocrit 37.9 % (37.0-47.0); Hemoglobin 11.1 g/dl (12.0-16.0); Mean Corpuscular HGB Conc 29.3 g/dl (31.0-35.0); Mean Corpuscular Hemoglobin 24.1 pg (27.0-33.0); Mean Corpuscular Volume 82.2 fL (80.0-98.0); Mean Platelet Volume 10.4 fL (9.4-12.3); Platelet Count 306 X10*3/uL (160-400); Red Blood Count 4.61 X10*6/uL (4.20-5.50); Venous Blood Gas Refer to POC result; WBC ABN SCTR FOR CBC 1
[2024-04-19 14:09] LABS: VBG Base Excess -3.1 mmol/L; VBG HCO3 21 mmol/L (22-26); VBG pCO2 36 mmHg; VBG pH 7.37 (7.32-7.43); VBG pO2 35 mmHg
[2024-04-19 14:11] LABS: White Blood Count 151.3 X10*3/uL (4.8-10.8)
[2024-04-19 14:25] LABS: Appearance Urine Cloudy; Color Urine Yellow; Glucose Urine UA >=1000 mg/dL (Negative); Leukocyte Esterase Urine Trace (Negative); Nitrite Urine Negative (Negative); Specific Gravity - Urine >= 1.030 (1.005-1.025); UMIC TRIGGER UACC YES; Urine Blood Small (1+) (Negative); Urine Ketones Trace mg/dL (Negative); Urine Protein 100 (2+) mg/dL (Neg-Trace)
[2024-04-19 14:29] LABS: Alanine Aminotransferase 12 U/L (0-31); Albumin Level 3.4 g/dL (3.5-5.0); Alkaline Phosphatase 95 U/L (39-117); Anion Gap 14 (12-20); Aspartate Amino Transferase 46 U/L (5-31); Beta-Hydroxybutyrate 0.36 mmol/L (0.02-0.27); Bilirubin Total 0.2 mg/dL (0.0-1.0); Blood Urea Nitrogen 23 mg/dL (9-16); Calcium 8.6 mg/dL (8.4-10.2); Carbon Dioxide 22 mmol/L (22-29); Chloride 105 mmol/L (96-108); Creatinine Clr Calc Pharmacy 53.1; Estimated Glomerular Filt Rate 55; Glucose Random 189 mg/dL (60-115); Magnesium 2.2 mg/dL (1.6-2.6); Potassium 4.8 mmol/L (3.3-5.1); Sodium 136 mmol/L (135-145); Total Protein 6.7 g/dL (6.5-8.0)
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
[2024-04-19 14:35] LABS: Atypical Lymphs Percent Manual 2 % (0-6); Lymphocytes Absolute Manual 134.7 X10*3/uL (1.2-4.9); Lymphocytes Percent Manual 89 % (20-40); Monocytes Absolute Manual 6.1 X10*3/uL (0.1-1.2); Monocytes Percent Manual 4 % (2-11); Neutrophils Percent Manual 5 % (45-73); Platelet Estimate NORMAL (NORMAL); Platelet Morphology Comment NORMAL; RBC Morphology NOTED
[2024-04-19 14:36] LABS: Band Neutrophils Percent 0 % (3-5); Burr Cells 2+ (3-5) /OIF; Neutrophils Absolute Manual 7.6 X10*3/uL (2.0-8.3); Ovalocytes 1+ (5-14) /OIF; Smudge Cells PRESENT
[2024-04-19 14:37] LABS: Bacteria Urine 4+ (None Seen); Granular Casts Urine Present; Hyaline Casts Urine >20 /LPF (0-2); UACC Culture Trigger YES; WBC Urine 21-50 /HPF (0-5)
[2024-04-19 15:54] LABS: Lactic Acid 0.9 mmol/L (0.5-2.0)
[2024-04-19] MEDS: cefTRIAXone sodium 2 GM VIAL IVPUSH (15:54)
[2024-04-19] MEDS: iohexoL 350 MG/ML 100 ML INFUS..BTL IV (17:48)
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
[2024-04-19 18:43] LABS: Influenza A PCR POSITIVE (Negative); Influenza B PCR NEGATIVE (Negative); Resp Syncy Virus RNA Qual PCR NEGATIVE (Negative); SARS COV2 PCR INHOUSE NEGATIVE (Negative)
--- NOTE | 2024-04-19 20:19 | PHA.MEDREC ---
Pharmacy Consult ? Medication Reconciliation Pharmacy has completed the medication reconciliation. Utilized lang interpreter services and spoke with patient and she stated she did not know any of her medications and there was no one to call to ask about them. i utilized pharmacy claims to confirm patients med rec. She did state she took her morning medications this morning.
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
[2024-04-19 21:05] LABS: Glucose, Whole Blood 92 mg/dL (60-115)
--- NOTE | 2024-04-19 21:19 | PC.NURSE ---
POC Glucose at 21:00 is 92. No insulin sliding scale given. Documented not given in MAR.
[2024-04-19] MEDS: Oseltamivir Phosphate 75 MG CAPSULE PO (21:35)
[2024-04-19] MEDS: Enoxaparin Sodium 40 MG/0.4 ML SYRINGE SUBCUT (21:35)
[2024-04-19] MEDS: Gabapentin 600 MG TABLET PO (21:59)
[2024-04-20] MEDS: Pantoprazole Sodium 20 MG TABLET.DR 40 MG PO (05:15)
[2024-04-20 06:16] LABS: Anion Gap 12 (12-20); Blood Urea Nitrogen 22 mg/dL (9-16); Calcium 8.5 mg/dL (8.4-10.2); Carbon Dioxide 21 mmol/L (22-29); Chloride 109 mmol/L (96-108); Creatinine Clr Calc Pharmacy 59.8; Estimated Glomerular Filt Rate > 60; Glucose Random 87 mg/dL (60-115); Potassium 4.2 mmol/L (3.3-5.1); Sodium 138 mmol/L (135-145)
[2024-04-20 06:22] LABS: Hematocrit 37.1 % (37.0-47.0); Hemoglobin 10.5 g/dl (12.0-16.0); Mean Corpuscular HGB Conc 28.3 g/dl (31.0-35.0); Mean Corpuscular Hemoglobin 23.8 pg (27.0-33.0); Mean Corpuscular Volume 84.1 fL (80.0-98.0); Mean Platelet Volume 10.6 fL (9.4-12.3); Platelet Count 292 X10*3/uL (160-400); Red Blood Count 4.41 X10*6/uL (4.20-5.50); Red Cell Distribution Width 16.2 % (11.0-16.0)
[2024-04-20 06:30] LABS: WBC ABN SCTR FOR CBC 1
[2024-04-20 07:13] LABS: Lymphocytes Absolute Manual 121.8 X10*3/uL (1.2-4.9); Lymphocytes Percent Manual 93 % (20-40); Monocytes Absolute Manual 1.3 X10*3/uL (0.1-1.2); Monocytes Percent Manual 1 % (2-11); Neutrophils Percent Manual 6 % (45-73)
[2024-04-20 07:14] LABS: Platelet Estimate NORMAL (NORMAL); Platelet Morphology Comment NORMAL; Smudge Cells PRESENT
[2024-04-20 07:15] LABS: Burr Cells 1+ (0-2) /OIF; RBC Morphology NOTED
[2024-04-20 07:19] VITALS: BP 118/54; PULSE 85; RESP 18; TEMP 37.4; O2SAT 93
[2024-04-20 07:22] LABS: Glucose, Whole Blood 85 mg/dL (60-115)
[2024-04-20 07:29] LABS: Band Neutrophils Percent 0 % (3-5); Neutrophils Absolute Manual 7.9 X10*3/uL (2.0-8.3)
[2024-04-20] MEDS: lisinopriL 40 MG TABLET PO (08:09)
[2024-04-20] MEDS: Gabapentin 600 MG TABLET PO ×2 (08:09→22:10)
[2024-04-20] MEDS: Aspirin Enteric Coated 81 MG TABLET.DR PO (08:09)
--- NOTE | 2024-04-20 08:22 | PC.NURSE ---
kitchen called twice for patient missing breakfast
[2024-04-20] MEDS: Oseltamivir Phosphate 30 MG CAPSULE PO ×2 (08:33→22:10)
[2024-04-20] MEDS: Clopidogrel Bisulfate 75 MG TABLET PO (08:33)
--- NOTE | 2024-04-20 09:32 | PC.NURSE ---
patient sat up, ate breakfast tray this morning. VSS. patient is alert and oriented to self and place. patient denies pain
[2024-04-20 09:42] VITALS: BP 112/78; PULSE 88; RESP 18; TEMP 36.4; O2SAT 92
[2024-04-20 10:12] LABS: Glucose, Whole Blood 133 mg/dL (60-115)
--- NOTE | 2024-04-20 10:42 | HO.PM.IMPN ---
Subjective Subjective Date of Service: 04/20/24 Interval History: seen and evaluated this morning feels better , more alert denies fever or chills no other events Review of Systems Review of Systems: Yes all other systems are reviewed and are negative Physical Exam Vital Signs: Vital Signs: Last Vital Signs Temp 97.6 F 04/20/24 09:42 Pulse 88 04/20/24 09:42 Resp 18 04/20/24 09:42 BP 112/78 04/20/24 09:42 Pulse Ox 92 04/20/24 09:42 O2 Del Method Room Air 04/20/24 09:42 O2 Flow Rate 2 04/19/24 17:02 Oxygen Flow Rate 2 04/19/24 13:21 BMI result Body Mass Index 34.6 Const: Other: Constitutional : Awake, interactive, not in distress Neck : Normal inspection, Supple Cardiovascular : RRR, no JVP, no lower extremity edema Respiratory : good bilateral air entry, no crackles, wheezes or rhonchi Gastrointestinal: soft, lax, Normal bowel sounds, Non tender Skin : Warm, Dry Neurological : Alert & oriented x3, No focal deficit Objective Data Active Medications Acetaminophen (Acetaminophen 325 Mg Tablet) 650 mg PO Q6H PRN PRN Reason: Pain, Mild 1-3,fever,headache Aspirin (Aspirin Enteric Coated 81 Mg Tablet.) 81 mg PO DAILY [facility] Last Admin: 04/20/24 08:09 Dose: 81 mg Documented By: FE Calcium Carbonate (Calcium Carbonate 750 Mg Tab.Chew) 750 mg PO Q4H PRN PRN Reason: Heartburn Ceftriaxone Sodium (Ceftriaxone Sodium 1 Gm Vial) 1 gm IVPUSH Q24H [facility] Clopidogrel Bisulfate (Clopidogrel Bisulfate 75 Mg Tablet) 75 mg PO DAILY [facility] Last Admin: 04/20/24 08:33 Dose: 75 mg Documented By: FE Enoxaparin Sodium (Enoxaparin Sodium 40 Mg/0.4 Ml Syringe) 40 mg SUBCUT Q24H [facility] Last Admin: 04/19/24 21:35 Dose: 40 mg Documented By: ALBERTO Gabapentin (Gabapentin 600 Mg Tablet) 600 mg PO BID [facility] Last Admin: 04/20/24 08:09 Dose: 600 mg Documented By: FE Glucose (Glucose Gel 15 Gm Gel..Gram.) 15 gm PO Q15M PRN; Protocol PRN Reason: per Hypoglycemia Standing Ord. Dextrose (D10) 250 mls @ 750 mls/hr IV Q15M PRN; Protocol PRN Reason: per Hypoglycemia Standing Ord. Insulin Human Lispro (Insulin Lispro 100 Unit/Ml 3 Ml Vial) 0 unit SUBCUT QIDACHS [facility]; Protocol Last Admin: 04/20/24 07:17 Dose: Not Given Documented By: FE Non-Admin Reason: No Insulin Coverage Lisinopril (Lisinopril 40 Mg Tablet) 40 mg PO DAILY [facility]; Protocol Last Admin: 04/20/24 08:09 Dose: 40 mg Documented By: FE Magnesium Hydroxide (Milk Of Magnesia 30 Ml Oral.Susp) 30 ml PO DAILY PRN PRN Reason: Constipation Melatonin (Melatonin 3 Mg Tablet) 6 mg PO BEDTIME PRN PRN Reason: Insomnia Ondansetron HCl (Ondansetron Hcl 4 Mg/2 Ml Vial) 4 mg IVPUSH Q8H PRN PRN Reason: Nausea and Vomiting Oseltamivir Phosphate (Oseltamivir Phosphate 30 Mg Capsule) 30 mg PO Q12H [facility] Stop: 04/24/24 09:01 Last Admin: 04/20/24 08:33 Dose: 30 mg Documented By: FE Pantoprazole Sodium (Pantoprazole Sodium 20 Mg Tablet.Dr) 40 mg PO DAILY@0630 [facility] Last Admin: 04/20/24 05:15 Dose: 40 mg Documented By: TRISH Sodium Chloride (0.9 % Sodium Chloride Flush 3 Ml Syringe) 3 ml IVFLUSH QSHIFT [facility] Last Admin: 04/20/24 08:42 Dose: Not Given Documented By: FE Non-Admin Reason: See Note Labs 04/20/24 05:55 04/20/24 05:55 Labs: Laboratory Results - last 24 hr 04/19/24 04/19/24 04/19/24 14:00 14:04 15:33 MCV 82.2 MCH 24.1 L MCHC 29.3 L RDW 16.0 Plt Count 306 D MPV 10.4 Immature Gran % (Auto) Cancelled Neut % (Auto) Cancelled Lymph % (Auto) Cancelled Early % (Auto) Cancelled Eos % (Auto) Cancelled Baso % (Auto) Cancelled Lymph # (Auto) Cancelled Early # (Auto) Cancelled Eos # (Auto) Cancelled Baso # (Auto) Cancelled Abs Immat Gran (auto) Cancelled Absolute Neuts (auto) Cancelled Absolute Nucleated RBC 0.000 Nucleated RBC % (auto) 0.0 Neutrophils % (Manual) 5 L Band Neutrophils % 0 L Lymphocytes % (Manual) 89 H Atypical Lymphs % (Man) 2 Monocytes % (Manual) 4 Abs Neuts (Manual) 7.6 Lymphocytes # (Manual) 134.7 H Atyp Lymphs # (Manual) 3.0 Monocytes # (Manual) 6.1 H Smudge Cells PRESENT Platelet Estimate NORMAL Plt Morphology Comment NORMAL RBC Morphology NOTED Ovalocytes 1+ (5-14) Perla Cells 2+ (3-5) VBG pH 7.37 VBG pCO2 36 VBG pO2 35 VBG HCO3 21 L VBG O2 Saturation 47.0 VBG Base Excess -3.1 Anion Gap 14 Estim Creat Clear Calc 53.1 Estimated GFR 55 POC Glucose Random Glucose 189 H Lactic Acid 0.9 Calcium 8.6 D Magnesium 2.2 Total Bilirubin 0.2 AST 46 H ALT 12 Alkaline Phosphatase 95 Total Protein 6.7 Albumin 3.4 L Beta-Hydroxybutyrate 0.36 H Urine Color Yellow Urine Appearance Cloudy Urine pH 5.0 Ur Specific [place] >= 1.030 H Urine Protein 100 (2+) H Urine Glucose (UA) >=1000 H Urine Ketones Trace Urine Blood Small (1+) H Urine Nitrite Negative Ur Leukocyte Esterase Trace H Urine RBC 3-5 H Urine WBC 21-50 H Ur Squamous Epith Cells 3-5 Urine Bacteria 4+ Hyaline Casts >20 Granular Casts Present Urine Yeast Present Influenza Type A (PCR) Influenza Type B (PCR) RSV RNA Qual (PCR) SARS-CoV-2 RNA (RT-PCR) 04/19/24 04/19/24 04/20/24 17:57 21:01 05:55 MCV 84.1 MCH 23.8 L MCHC 28.3 L RDW 16.2 H Plt Count 292 MPV 10.6 Immature Gran % (Auto) Cancelled Neut % (Auto) Cancelled Lymph % (Auto) Cancelled Early % (Auto) Cancelled Eos % (Auto) Cancelled Baso % (Auto) Cancelled Lymph # (Auto) Cancelled Early # (Auto) Cancelled Eos # (Auto) Cancelled Baso # (Auto) Cancelled Abs Immat Gran (auto) Cancelled Absolute Neuts (auto) Cancelled Absolute Nucleated RBC 0.000 Nucleated RBC % (auto) 0.0 Neutrophils % (Manual) 6 L Band Neutrophils % 0 L Lymphocytes % (Manual) 93 H Atypical Lymphs % (Man) Monocytes % (Manual) 1 L Abs Neuts (Manual) 7.9 Lymphocytes # (Manual) 121.8 H Atyp Lymphs # (Manual) Monocytes # (Manual) 1.3 H Smudge Cells PRESENT Platelet Estimate NORMAL Plt Morphology Comment NORMAL RBC Morphology NOTED Ovalocytes Perla Cells 1+ (0-2) VBG pH VBG pCO2 VBG pO2 VBG HCO3 VBG O2 Saturation VBG Base Excess Anion Gap 12 Estim Creat Clear Calc 59.8 Estimated GFR > 60 POC Glucose 92 Random Glucose 87 Lactic Acid Calcium 8.5 Magnesium Total Bilirubin AST ALT Alkaline Phosphatase Total Protein Albumin Beta-Hydroxybutyrate Urine Color Urine Appearance Urine pH Ur Specific [place] Urine Protein Urine Glucose (UA) Urine Ketones Urine Blood Urine Nitrite Ur Leukocyte Esterase Urine RBC Urine WBC Ur Squamous Epith Cells Urine Bacteria Hyaline Casts Granular Casts Urine Yeast Influenza Type A (PCR) POSITIVE A Influenza Type B (PCR) NEGATIVE RSV RNA Qual (PCR) NEGATIVE SARS-CoV-2 RNA (RT-PCR) NEGATIVE 04/20/24 04/20/24 07:15 10:08 MCV MCH MCHC RDW Plt Count MPV Immature Gran % (Auto) Neut % (Auto) Lymph % (Auto) Early % (Auto) Eos % (Auto) Baso % (Auto) Lymph # (Auto) Early # (Auto) Eos # (Auto) Baso # (Auto) Abs Immat Gran (auto) Absolute Neuts (auto) Absolute Nucleated RBC Nucleated RBC % (auto) Neutrophils % (Manual) Band Neutrophils % Lymphocytes % (Manual) Atypical Lymphs % (Man) Monocytes % (Manual) Abs Neuts (Manual) Lymphocytes # (Manual) Atyp Lymphs # (Manual) Monocytes # (Manual) Smudge Cells Platelet Estimate Plt Morphology Comment RBC Morphology Ovalocytes [place] Cells VBG pH VBG pCO2 VBG pO2 VBG HCO3 VBG O2 Saturation VBG Base Excess Anion Gap Estim Creat Clear Calc Estimated GFR POC Glucose 85 133 H Random Glucose Lactic Acid Calcium Magnesium Total Bilirubin AST ALT Alkaline Phosphatase Total Protein Albumin Beta-Hydroxybutyrate Urine Color Urine Appearance Urine pH Ur Specific [place] Urine Protein Urine Glucose (UA) Urine Ketones Urine Blood Urine Nitrite Ur Leukocyte Esterase Urine RBC Urine WBC Ur Squamous Epith Cells Urine Bacteria Hyaline Casts Granular Casts Urine Yeast Influenza Type A (PCR) Influenza Type B (PCR) RSV RNA Qual (PCR) SARS-CoV-2 RNA (RT-PCR) Assessment and Plan (1) Encephalopathy: Status: Acute (2) Acute UTI: Status: Acute (3) Influenza A: Status: Acute (4) Hypoxia: Status: Acute Plan This is a 73-year-old female with pertinent history of CLL, ehx-bwveuor-mrkswvgfy diabetes mellitus, peripheral artery disease, gastroesophageal reflux disease who was brought to the emergency department for evaluation of altered mentation. # Acute metabolic encephalopathy and sepsis due to acute UTI Mentation improved back to baseline On IV crystalloids Continue IV ceftriaxone Urine and blood culture pending # Acute hypoxemic respiratory failure due to influenza a infection wean as tolerated Tamiflu, renally dosed # Vfo-fwdsoxq-thrqnpfkr diabetes mellitus with hyperglycemia Initiating Accu-Cheks with sliding scale insulin before meals and at bedtime # Peripheral arterial disease On dual antiplatelet therapy and high-intensity statin # Gastroesophageal reflux disease On PPI # CLL Follows with Oncology outpatient, stable DVT prophylaxis: Lovenox Full code will require overnight minimum hospital stay for IV antibiotics, monitoring of mentation, pending final cultures Quality Stroke Does the patient have a stroke diagnosis?: No VTE Prior VTE?: No VTE Risk Level:: Medical - moderate - high VTE Device Contraindication: Treatment Not Indicated VTE Drug Contraindication: N/A - Med Ordered
[2024-04-20 11:45] LABS: Glucose, Whole Blood 114 mg/dL (60-115)
[2024-04-20] MEDS: cefTRIAXone sodium 1 GM VIAL IVPUSH (14:17)
--- NOTE | 2024-04-20 14:35 | MHC.CM.PN ---
Addendum entered by Viji Bautista 04/20/24 15:01: CM SPOKE TO PTS GRANDDAUGHTER, MAKENZIE, WHO REPORTS SHE IS AT THE PTS HOME RIGHT NOW CLEANING AND WILL HAVE IT READY FOR HER RETURN AT DC Original Note: CM MET WITH PT AND FAMILY AT BEDSIDE PT REPORTS SHE LIVES ALONE AND IS INDEPENDENT WITH CARE SHE SAYS SHE DID NOT NEED SERVICES BEFORE SHE ALSO DENIES USE OF DME PTS BROTHER STATES SHE CANNOT GO HOME HER HOME IS A MESS HE STATES HE WILL GO TO THE [place] TO SEE IF ANYONE CAN HELP CLEAN IT BUT THAT WILL TAKE TIME CM EXPLAINED PT CANNOT GO TO A SNF BECAUSE HER HOUSE NEEDS TO BE CLEANED, SHE WOULD NEED A CLINICAL REASON SUCH PT NEEDS PT STATES SHE IS NOT INTERESTED IN STR EITHER WAY, BUT IS AGREEABLE TO A PT EVAL TO DETERMINE SAFETY SHE IS ALSO AGREEABLE TO A [facility] AND [facility] REFERRAL CM RECEIVED A MESSAGE FROM [employer], VM LEFT A REQUESTING A CALL BACK WORKER ASSIGNED: KASANDRA COOPER [phone] X [phone] EMAIL: [email or web address] PCP AT [facility] HCP ON FILE: MAKENZIE HAYDE [phone] PTS COLIN MARKEL ALSO CALLED FOR UPDATES HER NUMBER IS [phone] IMM DELIVERED DCP: TBD PENDING PT EVAL PT WOULD LIKE TO RETURN HOME [facility] REFERRAL MADE FAMILY CAN TRANSPORT
[2024-04-20 15:35] VITALS: BP 111/57; PULSE 76; RESP 18; TEMP 36.6; O2SAT 94
[2024-04-20 17:37] LABS: Glucose, Whole Blood 110 mg/dL (60-115)
[2024-04-20 20:06] LABS: Glucose, Whole Blood 117 mg/dL (60-115)
[2024-04-20] MEDS: Enoxaparin Sodium 40 MG/0.4 ML SYRINGE SUBCUT (22:10)
[2024-04-20] MEDS: 0.9 % Sodium Chloride Flush 3 ML SYRINGE IVFLUSH (22:17)
[2024-04-21] VITALS: BP 115/57; PULSE 76; RESP 18; TEMP 36.1; O2SAT 96
[2024-04-21] MEDS: Pantoprazole Sodium 20 MG TABLET.DR 40 MG PO (05:33)
[2024-04-21 07:14] LABS: Hematocrit 35.5 % (37.0-47.0); Hemoglobin 10.1 g/dl (12.0-16.0); Mean Corpuscular HGB Conc 28.5 g/dl (31.0-35.0); Mean Corpuscular Hemoglobin 23.5 pg (27.0-33.0); Mean Corpuscular Volume 82.8 fL (80.0-98.0); Mean Platelet Volume 10.5 fL (9.4-12.3); Platelet Count 281 X10*3/uL (160-400); Red Blood Count 4.29 X10*6/uL (4.20-5.50); Red Cell Distribution Width 16.2 % (11.0-16.0)
[2024-04-21 07:27] LABS: Anion Gap 13 (12-20); Blood Urea Nitrogen 27 mg/dL (9-16); Calcium 8.6 mg/dL (8.4-10.2); Carbon Dioxide 24 mmol/L (22-29); Chloride 107 mmol/L (96-108); Creatinine Clr Calc Pharmacy 44.9; Estimated Glomerular Filt Rate 46; Glucose Random 98 mg/dL (60-115); Potassium 4.1 mmol/L (3.3-5.1); Sodium 140 mmol/L (135-145)
[2024-04-21 07:45] VITALS: BP 140/63; PULSE 73; RESP 18; TEMP 36.2; O2SAT 92
[2024-04-21 07:48] LABS: WBC ABN SCTR FOR CBC 1; White Blood Count 111.1 X10*3/uL (4.8-10.8)
[2024-04-21 07:56] LABS: Atypical Lymph Absolute Manual 2.2 x10*3/uL; Atypical Lymphs Percent Manual 2 % (0-6); Band Neutrophils Percent 0 % (3-5); Lymphocytes Absolute Manual 94.4 X10*3/uL (1.2-4.9); Lymphocytes Percent Manual 85 % (20-40); Monocytes Absolute Manual 2.2 X10*3/uL (0.1-1.2); Monocytes Percent Manual 2 % (2-11); Neutrophils Absolute Manual 12.2 X10*3/uL (2.0-8.3); Neutrophils Percent Manual 11 % (45-73); Smudge Cells PRESENT
[2024-04-21 07:56] LABS: Glucose, Whole Blood 122 mg/dL (60-115)
[2024-04-21 07:58] LABS: Acanthocytes 1+ (0-2) /OIF; Burr Cells 2+ (3-5) /OIF; Ovalocytes 1+ (5-14) /OIF; RBC Morphology NOTED; Schistocytes 1+ (0-2) /OIF
[2024-04-21 07:59] LABS: Platelet Estimate NORMAL (NORMAL); Platelet Morphology Comment NORMAL
[2024-04-21] MEDS: Aspirin Enteric Coated 81 MG TABLET.DR PO (08:41)
[2024-04-21] MEDS: Clopidogrel Bisulfate 75 MG TABLET PO (08:41)
[2024-04-21] MEDS: lisinopriL 40 MG TABLET PO (08:41)
[2024-04-21] MEDS: Gabapentin 600 MG TABLET PO (08:41)
[2024-04-21] MEDS: Oseltamivir Phosphate 30 MG CAPSULE PO (08:41)
[2024-04-21] MEDS: 0.9 % Sodium Chloride Flush 3 ML SYRINGE IVFLUSH (08:42)
[2024-04-21 09:11] VITALS: BP 140/63; PULSE 73
--- NOTE | 2024-04-21 11:12 | PM.DS ---
DS: Providers Provider Date of Service: 04/21/24 Date of admission: 04/19/24 20:28 Date of discharge: 04/21/24 Primary care physician: Maryuri Watson MD DS: Diagnosis Discharge Diagnosis (1) Encephalopathy: Status: Acute (2) Acute UTI: Status: Acute (3) Influenza A: Status: Acute (4) Hypoxia: Status: Acute DS: Summary Hospital Course Hospital Course: Admission note HPI This is a 73-year-old female with pertinent history of CLL, dyj-zfgmrov-eygcdilac diabetes mellitus, peripheral artery disease, gastroesophageal reflux disease who was brought to the emergency department for evaluation of altered mentation. Patient is only oriented to self at the time of my evaluation. She knows her name but does not know why she is in the hospital. Patient states she was told that she was sick and hence she was brought to the hospital. Has no complaints at the time of my evaluation. History obtained with the help of inspector timers. Unable to obtain review of systems. As per EMS, daughter returned from [place] and found patient incontinent with poor living conditions. She was confused upon EMS arrival. In the emergency department, patient was found to be septic and urine concerning for UTI. Also found to be hypoxic and requiring 2 L supplemental oxygen and tested positive for influenza A. Hospital course The patient was treated for: # Acute metabolic encephalopathy and sepsis due to acute UTI Mentation improved back to baseline as she was treated with IV antibiotics as urine culture grew E.Coli. blood culture remained negative. To be discharged home on Ceftin 250 mg bid for 5 more days. # Acute hypoxemic respiratory failure due to influenza a infection Treated with Tamiflu, renally dosed with good response as she was weaned off O2 and was able to participate with PT on room air with no reported dyspnea or hypoxia. # CLL WBC remaines elevated >100,000. Follows with Oncology outpatient, stable. # PHysical deconditioning PT rec STR. the patient refuses and wants to go home. will do home PT with [facility]. Discharge plan Continue Ceftin for 5 more days Continue Tamiflu for 3 more days Drink plenty of fluids and stay well hydrated Physical therapy at home Time Attestation Discharge Coordination Time (in mins): 39 Quality: Safe Use of Opioids Does Pt have an Active Cancer Diagnosis on the Problem List?: No Quality: Stroke Does the patient have a stroke diagnosis?: No Physical Exam Vital Signs: Vital Signs: Last Vital Signs Temp 97.1 F 04/21/24 07:45 Pulse 73 04/21/24 09:11 Resp 18 04/21/24 07:45 BP 140/63 H 04/21/24 09:11 Pulse Ox 96 04/21/24 00:00 O2 Del Method Room Air 04/21/24 00:00 O2 Flow Rate 2 04/19/24 17:02 Oxygen Flow Rate 2 04/19/24 13:21 BMI result Body Mass Index 34.6 Const: Other: Constitutional : Awake, interactive, not in distress Neck : Normal inspection, Supple Cardiovascular : RRR, no JVP, no lower extremity edema Respiratory : good bilateral air entry, no crackles, wheezes or rhonchi Gastrointestinal: soft, lax, Normal bowel sounds, Non tender Skin : Warm, Dry Neurological : Alert & oriented x3, No focal deficit DS: Data Data Completed and Pending Completed studies during hospitalization [Text1]: Procedures Detachment at Left 1st Toe, Complete, Open Approach (06/10/20) Dilation of Left Anterior Tibial Artery using Drug-Coated Balloon, Percutaneous Approach (06/10/20) Dilation of Left Femoral Artery using Drug-Coated Balloon, Percutaneous Approach (06/10/20) Dilation of Left Peroneal Artery using Drug-Coated Balloon, Percutaneous Approach (06/10/20) Extirpation of Matter from Left Femoral Artery, Percutaneous Approach (06/10/20) Labs on day of discharge: Laboratory Results - last 24 hr 04/20/24 04/20/24 04/20/24 11:39 17:33 19:56 WBC RBC Hgb Hct MCV MCH MCHC RDW Plt Count MPV Immature Gran % (Auto) Neut % (Auto) Lymph % (Auto) [place] % (Auto) Eos % (Auto) Baso % (Auto) Lymph # (Auto) [place] # (Auto) Eos # (Auto) Baso # (Auto) Abs Immat Gran (auto) Absolute Neuts (auto) Absolute Nucleated RBC Nucleated RBC % (auto) Neutrophils % (Manual) Band Neutrophils % Lymphocytes % (Manual) Atypical Lymphs % (Man) Monocytes % (Manual) Abs Neuts (Manual) Lymphocytes # (Manual) Atyp Lymphs # (Manual) Monocytes # (Manual) Smudge Cells Platelet Estimate Plt Morphology Comment RBC Morphology Ovalocytes [place] Cells Acanthocytes (Spur) Schistocytes Sodium Potassium Chloride Carbon Dioxide Anion Gap BUN Creatinine Estim Creat Clear Calc Estimated GFR POC Glucose 114 110 117 H Random Glucose Calcium 04/21/24 04/21/24 05:15 07:48 WBC 111.1 H* RBC 4.29 Hgb 10.1 L Hct 35.5 L MCV 82.8 MCH 23.5 L MCHC 28.5 L RDW 16.2 H Plt Count 281 MPV 10.5 Immature Gran % (Auto) Cancelled Neut % (Auto) Cancelled Lymph % (Auto) Cancelled [place] % (Auto) Cancelled Eos % (Auto) Cancelled Baso % (Auto) Cancelled Lymph # (Auto) Cancelled [place] # (Auto) Cancelled Eos # (Auto) Cancelled Baso # (Auto) Cancelled Abs Immat Gran (auto) Cancelled Absolute Neuts (auto) Cancelled Absolute Nucleated RBC 0.020 H Nucleated RBC % (auto) 0.0 Neutrophils % (Manual) 11 L Band Neutrophils % 0 L Lymphocytes % (Manual) 85 H Atypical Lymphs % (Man) 2 Monocytes % (Manual) 2 Abs Neuts (Manual) 12.2 H Lymphocytes # (Manual) 94.4 H Atyp Lymphs # (Manual) 2.2 Monocytes # (Manual) 2.2 H Smudge Cells PRESENT Platelet Estimate NORMAL Plt Morphology Comment NORMAL RBC Morphology NOTED Ovalocytes 1+ (5-14) [place] Cells 2+ (3-5) Acanthocytes (Spur) 1+ (0-2) Schistocytes 1+ (0-2) Sodium 140 Potassium 4.1 Chloride 107 Carbon Dioxide 24 Anion Gap 13 BUN 27 H Creatinine 1.16 Estim Creat Clear Calc 44.9 Estimated GFR 46 POC Glucose 122 H Random Glucose 98 Calcium 8.6 Preliminary micro results at discharge 04/19/24 15:48 Blood Culture - Preliminary Blood - Venous No growth after 24 hours. 04/19/24 15:33 Blood Culture - Preliminary Blood - Venous No growth after 24 hours. Imaging Chest x-ray: Radiologist's impression: ITS Impressions Chest X-Ray 04/19/24 14:41 IMPRESSION: No acute cardiopulmonary abnormality. Electronically signed by: Andrea Cat MD 04/19/2024 03:29 PM [facility] [place] Plan Discharge Anticipated Discharge Date/Time: 04/21/24 11:09 Patient Disposition: Home Health Service Discharge Diagnosis: Influenza UTI Referrals: Maryuri Kaufamn MD [Primary Care Provider] - 1 Week Discharge Medications: New oseltamivir 30 mg Capsule 30 mg PO Q12H Qty: 6 0RF cefuroxime axetil 250 mg tablet 250 mg PO BID Qty: 10 0RF Continued pioglitazone 15 mg Tablet 15 mg PO DAILY glipizide 10 mg Tablet Extended Release 24hr 10 mg PO DAILY pantoprazole 40 mg Tablet,Delayed Release (Dr/Ec) 40 mg PO DAILY@0630 lisinopril 40 mg Tablet 40 mg PO DAILY aspirin [Keke Low Dose Aspirin] 81 mg tablet,delayed release (DR/EC) 81 mg PO DAILY Qty: 30 3RF clopidogrel [Plavix] 75 mg tablet 75 mg PO DAILY Qty: 30 5RF atorvastatin 80 mg tablet 80 mg PO BEDTIME gabapentin 600 mg tablet 600 mg PO BID Jardiance 25 mg tablet 25 mg PO DAILY Discharge Orders: Discharge Order (Routine); Ordered 04/21/24 Ordered By: Collin More Diet: Advance to usual diet Activity on Discharge: As tolerated Stand Alone Forms: Patient Portal Discharge page Print Language: Icelandic Care Plan Goals: Continue Ceftin for 5 more days Continue Tamiflu for 3 more days Drink plenty of fluids and stay well hydrated Physical therapy at home Health Concerns: UTI Influenza Plan of Treatment: Antibiotics Tamiflu Assessment: as above
--- NOTE | 2024-04-21 11:24 | W.MHC.F2F ---
Service Date Service Date: 04/21/24 Encounter Date of encounter: 04/21/24 Reasons for Services Signs and symptoms assessed: physical deconditioning Reason for physical therapy: home safety and mobility and therapeutic exercises Homebound: Leaving the home is medically contraindicated at this time without the asist of a device and/or another person due th the listed conditions above and below. Reason homebound: unsteady gait / fall risk Certification: Based on the above findings, I certify that this patient is confined to the home and needs intermittent correction care, physical therapy and/or speech therapy, or continues to need occupational therapy. The patient is under my care, and I have initiated the establishment of the plan of care. The patient will be followed by a physician who will periodically review the plan of care. Time Spent With Patient Time: Total time managing care of this patient today ____ minutes.
[2024-04-21 11:36] LABS: Glucose, Whole Blood 126 mg/dL (60-115)
--- NOTE | 2024-04-21 12:28 | MHC.CM.PN ---
Addendum entered by Viji Bautista 04/21/24 14:02: PT WILL DC WITH [facility] Original Note: PT CLEARED TO DC TODAY, SHE IS AWARE STR WAS RECOMMENDED, HOWEVER STATES SHE IS GOING HOME CM CALLED PTS GRANDDAUGHTER/HCP, MAKENZIE, SHE SAYS SHE WILL TRANSPORT PT CM WILL CALL HER WHEN PT IS READY TO DC PT AND HCP AWARE [facility] REFERRALS ARE BEING ARRANGED
[2024-04-21] MEDS: cefTRIAXone sodium 1 GM VIAL IVPUSH (13:41)
[2024-04-21 15:24] VITALS: BP 132/59; PULSE 71; RESP 18; TEMP 36.6; O2SAT 97
== END 2024-04-21 15:10 | disposition home health service (06) | DRG 871 ==
LOC: HO.ED 19:10 → HO.EDOVER 20:46 → HO.S3 04-20 09:04
PROVIDERS: Student in an Organized Health Care Education/Training Program; Admitting Provider Student in an Organized Health Care Education/Training Program; Emergency Provider Emergency Medicine; PCP Internal Medicine; Visit Provider Student in an Organized Health Care Education/Training Program
DX: A41.9 Sepsis, unspecified organism (principal); G93.41 Metabolic encephalopathy; J96.01 Acute respiratory failure with hypoxia; C91.10 Chronic lymphocytic leukemia of B-cell type not having achieved remission; E11.65 Type 2 diabetes mellitus with hyperglycemia; J10.1 Influenza due to other identified influenza virus with other respiratory manifestations; B96.20 Unspecified Escherichia coli [E. coli] as the cause of diseases classified elsewhere; E11.51 Type 2 diabetes mellitus with diabetic peripheral angiopathy without gangrene; K21.9 Gastro-esophageal reflux disease without esophagitis; R91.1 Solitary pulmonary nodule; E86.0 Dehydration; Z79.82 Long term (current) use of aspirin; Z79.84 Long term (current) use of oral hypoglycemic drugs; Z79.899 Other long term (current) drug therapy
CPT/HCPCS: 0241U; 36415; 71046; 71275; 80048; 80053; 81001; 82010; 82803; 82947; 83605; 83735; 85007; 85027; 87040; 87086; 87088; 87186; 93005; 97162; 99285; J0131; J0696; J1650; Q9967

== ENCOUNTER → 2024-04-19 13:24 | Outpatient (BNV) | payer MEDICARE, SELFPAY | PROVIDERS: Emergency Provider Emergency Medicine; Visit Provider Internal Medicine | DX: R41.82 Altered mental status, unspecified (principal) | CPT/HCPCS: 93010 ==

== ENCOUNTER → 2024-04-19 14:41 | Outpatient (BNV) | payer MEDICARE, SELFPAY | PROVIDERS: Emergency Provider Student in an Organized Health Care Education/Training Program; Visit Provider Radiology Diagnostic Radiology | DX: R06.02 Shortness of breath (principal) | CPT/HCPCS: 71046; 71275 ==

== ENCOUNTER → 2024-04-19 20:28 | Outpatient (BNV) | payer MEDICARE, SELFPAY | PROVIDERS: Admitting Provider Student in an Organized Health Care Education/Training Program; Emergency Provider Emergency Medicine; Visit Provider Student in an Organized Health Care Education/Training Program | DX: G93.41 Metabolic encephalopathy (principal); N39.0 Urinary tract infection, site not specified; J96.01 Acute respiratory failure with hypoxia; J10.1 Influenza due to other identified influenza virus with other respiratory manifestations | CPT/HCPCS: 99222; 99232; 99239; G0180 ==